=== PATIENT | male | born 1960 | race African-American/Black ===

== ENCOUNTER 2016-06-02 10:13 | Emergency (ER) | payer SELFPAY ==
[~2016-06-02] VITALS: Ht 175.3 cm; Wt 90.0 kg
[~2016-06-02 10:13] MED LIST: AUGM875T PO; DICL50 PO; TAB-TAB PO
[2016-06-02 10:14] VITALS: BP 127/88; PULSE 91; RESP 20; TEMP 98.3; O2SAT 94
--- NOTE | 2016-06-02 10:46 | PD ---
HPI Chief Complaint: Cold / Flu Symptoms Time Seen by Provider: 10:46 Travel History International Travel<30 days: No Contact w/Intl Traveler<30days: No Traveled to known affect area: No History of Present Illness HPI 55-year-old male presents emergency Department with complaint of cough, nasal congestion, sore throat 3 days. Also is complaining of headache, body aches, chest tightness. Has not taken his temperature and cannot reported MAXIMUM TEMPERATURE. Reports sweating and cold chills. Reports burning sensation in the back of his throat. Denies lump in throat, unusual drooling, difficulty swallowing. Reports painful swallowing. Denies abdominal pain, nausea, vomiting. Denies chest pain or shortness of breath. Reports tobacco use. Denies history of asthma or COPD. Has not taken any medications or tried any treatments to alleviate his symptoms. No known relieving or aggravating factors. No known allergies. Does not have an established primary care doctor. Denies significant past medical history. No other modifying factors or associated signs and symptoms. PFS Social History Alcohol Use: Yes Tobacco Use: Yes Allergies-Medications (Allergen,Severity, Reaction): Coded Allergies: No Known Allergies (Unverified , 06/02/16) Reported Meds & Prescriptions Reported Meds & Active Scripts Active Nasonex Nasal Cobb (Mometasone Furoate) 50 Mcg/Act Naspr 2 Cobb EACH NARE DAILY PRN Tessalon Perles (Benzonatate) 100 Mg Cap 100 Mg PO TID PRN Proair Hfa 8.5 GM Inh (Albuterol Sulfate) 90 Mcg/Act Aer 2 Puff INH Q4-6H PRN 108 mcg/actuation Ibuprofen 800 Mg Tab 800 Mg PO Q6HR PRN Deltasone (Prednisone) 20 Mg Tab 40 Mg PO DAILY 4 Days start 06/03/2016 Review of Systems Except as stated in HPI: all other systems reviewed are Neg Physical Exam Narrative GENERAL: Well-nourished, well-developed male patient, in no acute distress; afebrile, nontoxic-appearing SKIN: Warm and dry. No rash. HEAD: Atraumatic. Normocephalic. EYES: Pupils equal and round at 3 mm with brisk reaction. No scleral icterus. No injection or drainage. PERRLA. ENT: Mucosa pink and dry. Oropharynx with erythema; without exudate and edema. Uvular edema. No uvular, palatal, or tonsillar deviation. Airway patent. Voice is hoarse. Productive cough. EARS: Bilateral pinnae and external canals appear within normal limits. Bilateral tympanic membranes without erythema, dullness or perforation. NECK: Trachea midline. With Anterior cervical lymphadenopathy and tenderness. CARDIOVASCULAR: Regular rate and rhythm. No murmur appreciated. RESPIRATORY: No accessory muscle use. Clear to auscultation; decreased in bilateral bases. Breath sounds equal bilaterally. No retractions or tachypnea. GASTROINTESTINAL: Abdomen soft, non-tender, nondistended. Hepatic and splenic margins not palpable. Bowel sounds are active 4 quadrants. MUSCULOSKELETAL: No obvious deformities. No clubbing. No cyanosis. No edema. NEUROLOGICAL: Awake and alert. Oriented 3. No obvious cranial nerve deficits. Motor grossly within normal limits. Normal speech. Moves all extremities. PSYCHIATRIC: Appropriate mood and affect; insight and judgment normal. Data Data Last Documented VS Vital Signs Date Time Temp Pulse Resp B/P Pulse Ox O2 Delivery O2 Flow Rate FiO2 06/02/16 10:14 98.3 91 20 127/88 94 Room Air Orders Chest, Single Ap (06/02/16 10:46) Prednisone (Deltasone) (06/02/16 11:00) Albuterol Neb (Albuterol Neb) (06/02/16 11:00) Influenzae A/B Antigen (06/02/16 10:46) Group A Rapid Strep Screen (06/02/16 10:46) Ibuprofen (Motrin) (06/02/16 11:00) Strep Culture (Group A) (06/02/16 10:55) [facility] Medical Decision Making Medical Screen Exam Complete: Yes Emergency Medical Condition: Yes Medical Record Reviewed: Yes Differential Diagnosis Bronchitis, Influenza, pneumonia, viral illness, COPD, strep pharyngitis Narrative Course 55-year-old male with cold/flu symptoms 3 days. Patient is afebrile nontoxic appearing in the ER. Reports sweats and cold chills at home. Unable to reports MAXIMUM TEMPERATURE. Patient is in no acute distress. Oxygen saturation is 94% on room air. Lungs are clear and equal and decreased in bilateral bases. No retractions or tachypnea. Influenza, rapid strep, chest x- ray ordered. Ibuprofen, Albuterol nebulizer and Deltasone administered in the ER. 1136: Influenza and rapid strep negative. Patient in room eating chips. Chest x-ray with no acute findings. Patient reports improvement in symptoms. Denies chest tightness at this time. Lung sounds are clear and equal with improved air flow on reexamination. Patient requesting 1 more albuterol nebulizer treatment prior to discharge. Albuterol nebulizer ordered. Prescriptions for pro-air inhaler, Deltasone, Tessalon Perles, Magic mouthwash, Nasonex nasal spray prescribed for home. Patient says he doesn't want to take any medications fro his illness. I recommended the patient fill the prescriptions and take the medications. Patient verbalized understanding and agreement with treatment plan. Patient is medically cleared and stable for discharge. Discussed reasons to return to the emergency department. Instructed patient to follow up with primary care provider. Patient agrees with treatment plan. The patients vital signs are stable and the patient is stable for outpatient follow-up and treatment. Patient discharged home, stable and in no acute distress. Diagnosis Primary Impression: Acute bronchitis Qualified Code: J20.9 - Acute bronchitis, unspecified organism Referrals: Primary Care Physician Patient Instructions: Acute Bronchitis (ED), General Instructions Additional Instructions: Ibuprofen or Tylenol as directed and as needed to reduce fever/pain Umac-ctc-bqbavii antihistamines or decongestants as directed and as needed for symptom management Drink plenty of fluids to prevent dehydration Bracken diet to encourage nutrition such as crackers, fruit, applesauce, toast, soup etc. Use an air humidifier/turn off ceiling fans Follow-up with your primary care provider within 1 day Return immediately to the emergency department with worsening of symptoms Med/Other Pt SpecificInfo: Prescription(s) given Scripts Wuhnghbcbrysgdt-Qwihpborw-Glg-Alum-Simeth Liq (Magic Mouthwash Pediatric/Adult Liq)60 Ml Susp5 Ml SWISH-SWAL ACHS PRN (SORE THROAT) #60 ML Ref 0 Each 5mL contains: Diphenydramine 4.5mg, Viscous Lidocaine 2% 10mg, Maalox Advanced Regular Strength 2.7ml Prov:Diamond Rowe 06/02/16 Mometasone Nasal Cobb (Nasonex Nasal Cobb)50 Mcg/Act Naspr2 Cobb EACH NARE DAILY PRN (NASAL CONGESTION) #1 BOTTLE Ref 0 Prov:Diamond Rwoe 06/02/16 Benzonatate (Tessalon Perles)100 Mg Sbc520 Mg PO TID PRN (COUGH) #20 CAP Ref 0 Prov:Diamond RoweP 06/02/16 Albuterol 8.5 GM Inh (Proair Hfa 8.5 GM Inh)90 Mcg/Act Aer2 Puff INH Q4-6H PRN ( SOB/WHEEZING) #1 INHALER Ref 0 108 mcg/actuation Prov:Diamond Rowe 06/02/16 Ibuprofen 800 Mg Jkr625 Mg PO Q6HR PRN (PAIN) #30 TAB Ref 0 Prov:Diamond RoweP 06/02/16 Prednisone (Deltasone)20 Mg Tab40 Mg PO DAILY 4 Days Ref 0 start 06/03/2016 Prov:Diamond RoweP 06/02/16 Disposition: 01 DISCHARGE HOME Condition: Stable Diamond Rowe Jun 02, 2016 10:46
[2016-06-02] MEDS ORDERED: RESP: ALBUTEROL 2.5 MG/3 ML NEB (SCH) INH ONE ×2 (11:00→11:45)
[2016-06-02] MEDS ORDERED: IBUPROFEN 800 MG TAB PO ONE (11:00)
[2016-06-02] MEDS ORDERED: predniSONE 20 MG TAB PO ONE (11:00)
--- NOTE | 2016-06-02 11:37 | RADRPT ---
EXAM DATE/TIME: 06/02/2016 10:48 [facility] COMPARISON: No previous studies available for comparison. INDICATIONS : Patient has had chest pain for four days. Patient is a smoker. MEDICAL HISTORY : None. SURGICAL HISTORY : None. ENCOUNTER: Initial ACUITY: 4 - 6 days PAIN SCORE: 8/10 LOCATION: chest FINDINGS: A single view of the chest demonstrates the lungs to be symmetrically aerated without evidence of mas s, infiltrate or effusion. The cardiomediastinal contours are unremarkable. Osseous structures are intact. CONCLUSION: No acute disease. Gerald Estrada MD FACR on June 02, 2016 at 11:35 Board Certified Radiologist. This report was verified electronically.
[2016-06-02] MEDS ORDERED: ALBUAER3 INH (11:44)
[2016-06-02] MEDS ORDERED: BENZ100 PO (11:44)
[2016-06-02] MEDS ORDERED: PRED-503 PO (11:44)
[2016-06-02] MEDS ORDERED: MOME17I EACH NARE (11:44)
[2016-06-02] MEDS ORDERED: IBUP800T23 PO (11:44)
[2016-06-02] MEDS ORDERED: MAGICPED SWISH-SWAL (11:47)
[2016-06-02 12:03] VITALS: RESP 18; O2SAT 96
[2016-06-02 12:48] VITALS: RESP 20
== END 2016-06-02 12:47 | disposition home or self-care (01) ==
LOC: NEPB 10:13
DX: J20.9 Acute bronchitis, unspecified (principal); R51 Headache; M79.1 Myalgia; J02.9 Acute pharyngitis, unspecified; Z72.0 Tobacco use
CPT/HCPCS: 71010; 87081; 87804; 87880; 94640; 94664; 99283; J7512; J7613

== ENCOUNTER 2016-06-29 19:19 | Observation (INO) | payer OTHER ==
[~2016-06-29] VITALS: Ht 180.3 cm; Wt 82.0 kg
[~2016-06-29 19:19] MED LIST changes: +ALBUAER3 INH; -AUGM875T PO; +BENZ100 PO; -DICL50 PO; +IBUP800T23 PO; +MAGICPED SWISH-SWAL; +MOME17I EACH NARE; +PRED-503 PO; -TAB-TAB PO
[2016-06-29 19:22] VITALS: BP 123/87; PULSE 101; RESP 16; O2SAT 95
--- NOTE | 2016-06-29 19:47 | RADRPT ---
EXAM DATE/TIME: 06/29/2016 19:33 [facility] COMPARISON: CHEST SINGLE AP, June 02, 2016, 10:48. INDICATIONS : Chest pain. MEDICAL HISTORY : None. SURGICAL HISTORY : None. ENCOUNTER: Initial ACUITY: 1 day PAIN SCORE: 0/10 LOCATION: Bilateral chest FINDINGS: A single view of the chest demonstrates the lungs to be symmetrically aerated without evidence of mas s, infiltrate or effusion. The cardiomediastinal contours are unremarkable. Osseous structures are intact. CONCLUSION: No acute disease. Callum Street MD on June 29, 2016 at 19:45 Board Certified Radiologist. This report was verified electronically.
[2016-06-29 20:03] LABS: AUTOMATED NEUTROPHIL # 2.1 TH/MM3 (1.8-7.7); HEMATOCRIT 44.8 % (39.0-51.0); HEMO FLAGS DIFF FINAL; LYMPH % 41.7 % (9.0-44.0); LYMPHOCYTE # 1.9 TH/MM3 (1.0-4.8); MEAN CELL VOLUME 85.4 FL (80.0-100.0); MEAN CORPUSCULAR HEMOGLOBIN 29.1 PG (27.0-34.0); MEAN CORPUSCULAR HGB CONC 34.1 % (32.0-36.0); MONO % 9.1 % (0.0-8.0); NEUT % 47.2 % (16.0-70.0); PLATELET COUNT 217 TH/MM3 (150-450); RED BLOOD COUNT 5.25 MIL/MM3 (4.50-5.90); RED CELL DISTRIBUTION WIDTH 15.1 % (11.6-17.2); WHITE BLOOD COUNT 4.5 TH/MM3 (4.0-11.0)
[2016-06-29 20:10] LABS: INTERNATIONAL NORMALIZED RATIO 0.9 RATIO; PROTHROMBIN TIME - PATIENT 9.7 SEC (9.8-11.6)
[2016-06-29 20:31] LABS: ANION GAP 12 MEQ/L (5-15); BICARBONATE 24.3 MEQ/L (21.0-32.0); BLOOD UREA NITROGEN 7 MG/DL (7-18); CHLORIDE 105 MEQ/L (98-107); CREATINE KINASE 649 U/L (39-308); GLOMERULAR FILTRATION RATE 71 ML/MIN (>89); POTASSIUM 3.9 MEQ/L (3.5-5.1); SODIUM (NA) 141 MEQ/L (136-145)
[2016-06-29 20:43] LABS: CKMB 16.1 NG/ML (0.5-3.6)
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
[2016-06-29] MEDS ORDERED: NITROGLYCERIN 2% OINT 1 GM PACKET TOPICAL ONE (21:30)
[2016-06-29] MEDS ORDERED: ASPIRIN 81 MG CHEW TAB CHEW ONE (21:30)
[2016-06-29 22:00] VITALS: BP 131/80; PULSE 89; RESP 16; O2SAT 99
--- NOTE | 2016-06-29 22:22 | EKG ---
Date Performed: 06/29/2016 Time Performed: 19:28:03 PTAGE: 55 years EKG: SINUS TACHYCARDIA ABNORMAL RHYTHM ECG NO PREVIOUS TRACING DOCTOR: Mirna Yeager Interpretating Date/Time 06/29/2016 22:19:24
[2016-06-29] MEDS ORDERED: ONDANSETRON HCL 4 MG/2 ML VIAL IV PRN (23:00)
[2016-06-29] MEDS ORDERED: SODIUM CHLORIDE 0.9% FLUSH 10 ML FLUSH IV FLUSH PRN (23:00)
[2016-06-29] MEDS ORDERED: ACETAMINOPHEN 500 MG CPLT PO PRN (23:00)
[2016-06-29] MEDS ORDERED: NITROGLYCERIN 0.4 MG SL 25 TABS/BTL SL PRN (23:00)
[2016-06-29] MEDS ORDERED: ACETAMINOPHEN/HYDROcodone 325 MG/7.5 MG TAB PO PRN (23:00)
[2016-06-29 23:02] VITALS: O2SAT 99
[2016-06-29 23:33] LABS: CREATINE KINASE 626 U/L (39-308)
[2016-06-29 23:45] LABS: CKMB 14.4 NG/ML (0.5-3.6)
[2016-06-30 01:21] VITALS: BP 131/83; PULSE 100; RESP 18; TEMP 97.7; O2SAT 95
[2016-06-30] MEDS: MORPHINE SULFATE 4 MG/ML INJ IV PRN ×2 (01:48→06:11)
[2016-06-30 02:20] VITALS: PULSE 95
[2016-06-30 02:41] LABS: CREATINE KINASE 536 U/L (39-308)
[2016-06-30 02:53] LABS: CKMB 12.9 NG/ML (0.5-3.6)
[2016-06-30 04:59] VITALS: BP 114/76; PULSE 99; RESP 20; O2SAT 95
[2016-06-30 07:23] VITALS: BP 134/94; PULSE 99; RESP 18; TEMP 97.3; O2SAT 92
[2016-06-30] MEDS ORDERED: KETOROLAC TROMETHAMINE 30 MG/ML (IVP) VIAL IVP ONE (08:30)
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
[2016-06-30] MEDS ORDERED: DOXY100C PO (08:31)
--- NOTE | 2016-06-30 08:31 | HHI.DCPOC ---
Discharge Care Plan Diagnosis: (1) Chest pain, atypical (2) Tobacco abuse (3) Bronchitis Goals to Promote Your Health * To prevent worsening of your condition and complications * To maintain your health at the optimal level Directions to Meet Your Goals Take your medications as prescribed Follow your dietary instruction Follow activity as directed Keep your appointments as scheduled Take your immunizations and boosters as scheduled If your symptoms worsen call your PCP, if no PCP go to Urgent Care Center or Emergency Room Smoking is Dangerous to Your Health. Avoid second hand smoke Call the 24-hour hour crisis hotline for domestic abuse at Brian Robles Jun 30, 2016 08:31
[2016-06-30] MEDS ORDERED: ASPIRIN 325 MG TAB PO SCH (09:00)
[2016-06-30] MEDS ORDERED: SODIUM CHLORIDE 0.9% FLUSH 10 ML FLUSH IV FLUSH SCH (09:00)
[2016-06-30] MEDS ORDERED: FAMOTIDINE 20 MG TAB PO SCH (09:00)
--- NOTE | 2016-06-30 13:36 | EKG ---
Date Performed: 06/30/2016 Time Performed: 02:19:31 PTAGE: 55 years EKG: NORMAL Sinus rhythm PREVIOUS TRACING : 06/29/2016 23.05 Since previous tracing, no significant change noted DOCTOR: Sebas Maldonado Interpretating Date/Time 06/30/2016 13:34:45
--- NOTE | 2016-06-30 13:37 | EKG ---
Date Performed: 06/29/2016 Time Performed: 23:05:23 PTAGE: 55 years EKG: Sinus rhythm NORMAL ECG PREVIOUS TRACING : 06/29/2016 19.28 Since previous tracing, no significant change noted DOCTOR: Sebas Maldonado Interpretating Date/Time 06/30/2016 13:36:47
== END 2016-06-30 10:12 | disposition home or self-care (01) ==
LOC: NEPB 19:19 → NEDA 22:55 → NEPGCP 06-30 01:16
PROVIDERS: ADMIT Internal Medicine Interventional Cardiology; ATTEND Internal Medicine Interventional Cardiology
DX: J40 Bronchitis, not specified as acute or chronic (principal); R07.9 Chest pain, unspecified; R06.02 Shortness of breath; R61 Generalized hyperhidrosis; F17.210 Nicotine dependence, cigarettes, uncomplicated; R06.09 Other forms of dyspnea; R07.81 Pleurodynia; R10.816 Epigastric abdominal tenderness; R00.0 Tachycardia, unspecified; R05 Cough; R94.31 Abnormal electrocardiogram [ECG] [EKG]
CPT/HCPCS: 71010; 80048; 82550; 82552; 83690; 84484; 85025; 85379; 85610; 85730; 93005; 99285; G0378; J1885; J2270

== ENCOUNTER 2016-12-16 07:30 | Observation (INO) | payer OTHER ==
[~2016-12-16] VITALS: Ht 172.7 cm; Wt 80.0 kg
[2016-12-16] VITALS (7 sets, daily range): BP systolic 115–139; BP diastolic 78–95; PULSE 80–102; RESP 13–18; TEMP 97.8–98.8; O2SAT 92–97
[~2016-12-16 07:30] MED LIST changes: -ALBUAER3 INH; -BENZ100 PO; +DOXY100C PO; -IBUP800T23 PO; -MAGICPED SWISH-SWAL; -MOME17I EACH NARE; -PRED-503 PO
[2016-12-16] MEDS ORDERED: TRAM50TA PO (07:48)
[2016-12-16] MEDS ORDERED: TIZA4TAB PO (07:48)
[2016-12-16] MEDS ORDERED: SODIUM CHLOR 0.9% 1000 ML INJ 1,000 ML IV SCH (07:49)
--- NOTE | 2016-12-16 07:52 | PD ---
HPI Chief Complaint: Chest Pain Time Seen by Provider: 07:48 Travel History International Travel<30 days: No Contact w/Intl Traveler<30days: No Traveled to known affect area: No History of Present Illness HPI 56-year-old male with history of alcohol use, smoking, chronic back pains, presents to the ER today for 2 days history of substernal chest pains which she currently rates it a 10 out of 10. He denies any fevers, vomiting, diarrhea, shortness of breath, or any other symptoms. He does not know any exacerbating or alleviating factors. He denies any radiation. Modifying Factors: None Associated Signs & Symptoms: Substernal chest pains Risk Factors: None PFSH Past Medical History Heart Rhythm Problems: No Cardiac Catheterization: No Cardiovascular Problems: No High Cholesterol: Yes Congestive Heart Failure: No Diabetes: No Diminished Hearing: No Musculoskeletal: Yes (BACK PAIN HX) Immunizations Current: Yes Tetanus Vaccination: < 5 Years Influenza Vaccination: No Past Surgical History Coronary Artery Bypass Graft: No Family History Family Myocardial Infarction: Yes Social History Alcohol Use: Yes (EVERY DAY) Tobacco Use: Yes Substance Use: No (PT DENIES) Allergies-Medications (Allergen,Severity, Reaction): Coded Allergies: No Known Allergies (Unverified , 12/16/16) Reported Meds & Prescriptions Reported Meds & Active Scripts Active Reported Tramadol (Tramadol HCl) 50 Mg Tab 50 Mg PO Q8H PRN Tizanidine (Tizanidine HCl) 4 Mg Tab 4 Mg PO HS Review of Systems Except as stated in HPI: all other systems reviewed are Neg Physical Exam Narrative GENERAL: Well-developed middle age -Bhut[place] male patient currently in no acute distress. Awake and oriented 3. SKIN: Focused skin assessment warm/dry. HEAD: Atraumatic. Normocephalic. EYES: Pupils equal and round. No scleral icterus. No injection or drainage. ENT: No nasal bleeding or discharge. Mucous membranes pink and moist. NECK: Trachea midline. No JVD. CARDIOVASCULAR: Regular rate and rhythm. No murmur appreciated. Pulses are present and equal bilaterally. RESPIRATORY: No accessory muscle use. Clear to auscultation. Breath sounds equal bilaterally. GASTROINTESTINAL: Abdomen soft, moderate epigastric and left upper quadrant tenderness without guarding or rebound, nondistended. Hepatic and splenic margins not palpable. MUSCULOSKELETAL: No obvious deformities. No clubbing. No cyanosis. No edema. NEUROLOGICAL: Awake and alert. No obvious cranial nerve deficits. Motor grossly within normal limits. Normal speech. PSYCHIATRIC: Appropriate mood and affect; insight and judgment normal. Data Data Last Documented VS Vital Signs Date Time Temp Pulse Resp B/P (MAP) Pulse Ox O2 Delivery O2 Flow Rate FiO2 12/16/16 08:44 97.8 92 17 131/86 (101) 97 Room Air Orders Orders Electrocardiogram (12/16/16 ) Complete Blood Count With Diff (12/16/16 07:49) Comprehensive Metabolic Panel (12/16/16 07:49) Lipase (12/16/16 07:49) Iv Access Insert/Monitor (12/16/16 07:49) Ecg Monitoring (12/16/16 07:49) Oximetry (12/16/16 07:49) Ondansetron Inj (Zofran Inj) (12/16/16 08:00) Sodium Chlor 0.9% 1000 Ml Inj (Ns 1000 M (12/16/16 07:49) Sodium Chloride 0.9% Flush (Ns Flush) (12/16/16 08:00) Chest, Single Ap (12/16/16 07:49) Famotidine Inj (Pepcid Inj) (12/16/16 08:00) Ckmb (Isoenzyme) Profile (12/16/16 07:49) Troponin I (12/16/16 07:49) CKMB (12/16/16 07:56) CKMB% (12/16/16 07:56) Admit Order (Ed Use Only) (12/16/16 08:58) Labs Laboratory Tests Test 12/16/16 07:56 White Blood Count 3.4 TH/MM3 Red Blood Count 5.14 MIL/MM3 Hemoglobin 14.5 GM/DL Hematocrit 43.9 % Mean Corpuscular Volume 85.4 FL Mean Corpuscular Hemoglobin 28.3 PG Mean Corpuscular Hemoglobin Concent 33.1 % Red Cell Distribution Width 15.6 % Platelet Count 171 TH/MM3 Mean Platelet Volume 8.3 FL Neutrophils (%) (Auto) 49.8 % Lymphocytes (%) (Auto) 39.7 % Monocytes (%) (Auto) 10.0 % Eosinophils (%) (Auto) 0.1 % Basophils (%) (Auto) 0.4 % Neutrophils # (Auto) 1.7 TH/MM3 Lymphocytes # (Auto) 1.4 TH/MM3 Monocytes # (Auto) 0.3 TH/MM3 Eosinophils # (Auto) 0.0 TH/MM3 Basophils # (Auto) 0.0 TH/MM3 CBC Comment DIFF FINAL Differential Comment Blood Urea Nitrogen 14 MG/DL Creatinine 1.02 MG/DL Random Glucose 125 MG/DL Total Protein 8.2 GM/DL Albumin 3.9 GM/DL Calcium Level 7.7 MG/DL Alkaline Phosphatase 106 U/L Aspartate Amino Transf (AST/SGOT) 40 U/L Alanine Aminotransferase (ALT/SGPT) 41 U/L Total Bilirubin 0.4 MG/DL Sodium Level 140 MEQ/L Potassium Level 4.5 MEQ/L Chloride Level 107 MEQ/L Carbon Dioxide Level 24.7 MEQ/L Anion Gap 8 MEQ/L Estimat Glomerular Filtration Rate 92 ML/MIN Total Creatine Kinase 789 U/L Creatine Kinase MB 12.6 NG/ML Creatine Kinase MB % 1.6 % Troponin I LESS THAN 0.02 NG/ML Lipase 355 U/L MDM Medical Decision Making Medical Screen Exam Complete: Yes Emergency Medical Condition: Yes Medical Record Reviewed: Yes Interpretation(s) EKG shows NSR, no ST elevation or depression, and no arrhythmias. No significant T-wave inversions. Laboratory Tests Test 12/16/16 07:56 White Blood Count 3.4 TH/MM3 (4.0-11.0) Monocytes (%) (Auto) 10.0 % (0.0-8.0) Neutrophils # (Auto) 1.7 TH/MM3 (1.8-7.7) Random Glucose 125 MG/DL (74-106) Calcium Level 7.7 MG/DL (8.5-10.1) Aspartate Amino Transf (AST/SGOT) 40 U/L (15-37) Total Creatine Kinase 789 U/L (39-308) Creatine Kinase MB 12.6 NG/ML (0.5-3.6) Troponin I LESS THAN 0.02 NG/ML Last 24 hours Impressions Chest X-Ray 12/16/16 0749 Signed Impressions: Service Date/Time: December 07:52 - CONCLUSION: 1. No free intraperitoneal air. 2. No acute cardiopulmonary disease. Callum Street MD Differential Diagnosis Substernal chest pains, abdominal pains: Gastritis versus gastroenteritis versus pancreatitis versus ACS Narrative Course Chest x-ray was unremarkable. EKG not show any signs of acute dysrhythmias or ST changes. Cardiac enzymes were negative, there is a CK-MB elevation due to elevated CPK in general but the percentage was normal. At this point, considering patient's complaint, my plan would be to admit the patient for further evaluation and chest pain center. Diagnosis Primary Impression: Chest pain Admitting Information Admitting Physician Requests: Admit Marilynn Gusman MD Dec 16, 2016 07:52
[2016-12-16] MEDS ORDERED: FAMOTIDINE 20 MG/2 ML VIAL IV PUSH ONE (08:00)
[2016-12-16] MEDS ORDERED: ONDANSETRON HCL 4 MG/2 ML VIAL IVP ONE (08:00)
[2016-12-16] MEDS ORDERED: SODIUM CHLORIDE 0.9% FLUSH 10 ML FLUSH IV FLUSH PRN (08:00)
[2016-12-16 08:13] LABS: AUTOMATED NEUTROPHIL # 1.7 TH/MM3 (1.8-7.7); BASOPHIL % 0.4 % (0.0-2.0); EOSINOPHIL % 0.1 % (0.0-4.0); HEMATOCRIT 43.9 % (39.0-51.0); HEMO FLAGS DIFF FINAL; LYMPH % 39.7 % (9.0-44.0); LYMPHOCYTE # 1.4 TH/MM3 (1.0-4.8); MEAN CELL VOLUME 85.4 FL (80.0-100.0); MEAN CORPUSCULAR HEMOGLOBIN 28.3 PG (27.0-34.0); MEAN CORPUSCULAR HGB CONC 33.1 % (32.0-36.0); NEUT % 49.8 % (16.0-70.0); PLATELET COUNT 171 TH/MM3 (150-450); RED BLOOD COUNT 5.14 MIL/MM3 (4.50-5.90); RED CELL DISTRIBUTION WIDTH 15.6 % (11.6-17.2); WHITE BLOOD COUNT 3.4 TH/MM3 (4.0-11.0)
--- NOTE | 2016-12-16 08:16 | RADRPT ---
EXAM DATE/TIME: 12/16/2016 07:52 [facility] COMPARISON: CHEST SINGLE AP, June 29, 2016, 19:33. INDICATIONS : Free air, Shortness of breath. MEDICAL HISTORY : None. SURGICAL HISTORY : None. ENCOUNTER: Initial ACUITY: 1 day PAIN SCORE: 5/10 LOCATION: Bilateral chest FINDINGS: A single view of the chest demonstrates the lungs to be symmetrically aerated without evidence of mas s, infiltrate or effusion. The cardiomediastinal contours are unremarkable. Osseous structures are intact. No free intraperitoneal air is noted. CONCLUSION: 1. No free intraperitoneal air. 2. No acute cardiopulmonary disease. Callum Street MD on December 16, 2016 at 8:13 Board Certified Radiologist. This report was verified electronically.
[2016-12-16 08:35] LABS: ALT (GPT) 41 U/L (12-78); ANION GAP 8 MEQ/L (5-15); AST (GOT) 40 U/L (15-37); BICARBONATE 24.7 MEQ/L (21.0-32.0); BLOOD UREA NITROGEN 14 MG/DL (7-18); CHLORIDE 107 MEQ/L (98-107); GLOMERULAR FILTRATION RATE 92 ML/MIN (>89); POTASSIUM 4.5 MEQ/L (3.5-5.1); SODIUM (NA) 140 MEQ/L (136-145)
[2016-12-16 08:39] LABS: ALKALINE PHOSPHATASE 106 U/L (45-117); CREATINE KINASE 789 U/L (39-308); TOTAL BILIRUBIN ADULT 0.4 MG/DL (0.2-1.0)
[2016-12-16 08:52] LABS: CKMB 12.6 NG/ML (0.5-3.6)
[2016-12-16] MEDS ORDERED: SODIUM CHLORIDE 0.9% FLUSH 5 ML FLUSH IVF PRN (09:30)
[2016-12-16] MEDS ORDERED: KETOROLAC TROMETHAMINE 30 MG/ML (IVP) VIAL IVP ONE (09:30)
[2016-12-16] MEDS ORDERED: ONDANSETRON HCL 4 MG/2 ML VIAL IV PRN (09:30)
[2016-12-16] MEDS ORDERED: ACETAMINOPHEN/HYDROcodone 325 MG/7.5 MG TAB PO PRN (09:30)
[2016-12-16] MEDS ORDERED: ALPRAZolam 0.25 MG TAB PO PRN (09:30)
[2016-12-16] MEDS ORDERED: ACETAMINOPHEN 500 MG CPLT PO PRN (09:30)
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
[2016-12-16 11:47] LABS: CREATINE KINASE 669 U/L (39-308)
--- NOTE | 2016-12-16 14:07 | HHI.DCPOC ---
Discharge Care Plan Diagnosis: (1) Chest pain, atypical (2) Tobacco abuse (3) Chronic back pain Goals to Promote Your Health * To prevent worsening of your condition and complications * To maintain your health at the optimal level Directions to Meet Your Goals Take your medications as prescribed Follow your dietary instruction Follow activity as directed Keep your appointments as scheduled Take your immunizations and boosters as scheduled If your symptoms worsen call your PCP, if no PCP go to Urgent Care Center or Emergency Room Smoking is Dangerous to Your Health. Avoid second hand smoke Call the 24-hour hour crisis hotline for domestic abuse at Brian Robles Dec 16, 2016 14:07
--- NOTE | 2016-12-16 16:05 | TR ---
Date Performed: 12/16/2016 Time Performed: 13:41:11 DOCTOR: Aneudy Pinto DRUG LIST: CLINICAL HISTORY: REASON FOR TEST: Chest pain REASON FOR ENDING: OBSERVATION: CONCLUSION: JACOB PROTOCOL. NO CP. TEST STOPPED AFTER EXCEEDING GOAL HR SECONDARY TO SOB AND LEG FATIGUE.Maximum SJ=234 % Max HR Achieved=87.0% Maximum ID=[id number] Total Exercise Time=3:32 COMMENTS: Conclusion: Normal treadmill exercise. No evidence of ischemia.
--- NOTE | 2016-12-16 16:07 | EKG ---
Date Performed: 12/16/2016 Time Performed: 07:47:33 PTAGE: 56 years EKG: Sinus rhythm NORMAL ECG PREVIOUS TRACING : 06/30/2016 02.19 Since previous tracing, no significant change noted DOCTOR: Aneudy Pinto Interpretating Date/Time 12/16/2016 16:06:33
--- NOTE | 2016-12-16 16:19 | EKG ---
Date Performed: 12/16/2016 Time Performed: 10:54:26 PTAGE: 56 years EKG: Sinus rhythm WITH SINUS ARRHYTHMIA NORMAL ECG INTERPRETATION BASED ON A DEFAULT AGE OF 40 YEARS PREVIOUS TRACING : 12/16/2016 07.47 DOCTOR: Aneudy Pinto Interpretating Date/Time 12/16/2016 16:18:07
[2016-12-16] MEDS ORDERED: SODIUM CHLORIDE 0.9% FLUSH 5 ML FLUSH IVF SCH (21:00)
[2016-12-17] MEDS ORDERED: ASPIRIN 325 MG TAB PO SCH (09:00)
== END 2016-12-16 16:30 | disposition home or self-care (01) ==
LOC: NEPE 07:30 → NEDA 09:00 → NEPFCDU 13:21
DX: R07.89 Other chest pain (principal); M54.9 Dorsalgia, unspecified; G89.29 Other chronic pain; F17.210 Nicotine dependence, cigarettes, uncomplicated
CPT/HCPCS: 71010; 80053; 82550; 82552; 83690; 84484; 85025; 93005; 93017; 96361; 96374; 96375; 96376; 99285; G0378; J1885; J2405; J7030

== ENCOUNTER → 2017-01-25 | Day surgery (SDC) | payer OTHER ==
[~2017-01-25] VITALS: Ht 175.3 cm; Wt 81.9 kg
[~2017-01-25] MED LIST changes: +*morphine SULFATE 8 MG/ML PERIprocedure ONLY ONE; +ACETAMINOPHEN 1000 MG/100 ML 0 ML IV ONE; +ACETAMINOPHEN 1000 MG/100 ML 100 ML IV SCH; +BUPIVACAINE LIPOSOME PF 1.3% 20 ML VIAL ONE; +BUPIVACAINE/EPINEPHRINE 0.5% 50 ML VIAL ONE; +CHLORHEXIDINE GLUCONATE 2 % 1 PACK (2 CLOTHS) TOPICAL PRN; +DEXAMETHASONE SOD PHOS 4 MG/ML VIAL IV ONE; +DO NOT ADM ANY ANTICOAGULANT DRUGS PRN; -DOXY100C PO; +ESMOLOL HCL 100 MG/10 ML VIAL IV ONE; +GLYCOPYRROLATE 1 MG/5 ML SYRINGE IV PUSH ONE; +INSULIN HUMAN REGULAR 1,000 UNITS/10 ML VIAL SQ PRN; +KETOROLAC TROMETHAMINE 30 MG/ML (IVP) VIAL IV PUSH ONE; +LACTATED RINGER'S 1000 ML INJ 1,000 ML IV ONE; +LACTATED RINGER'S 1000 ML IV PRN; +LIDOCAINE HCL 1% PF 5 ML AMPULE OTHER ONE; +METOPROLOL TARTRATE 25 MG TAB PO PRN; +MIDAZOLAM HCL 2 MG/2 ML VIAL IV ONE; +MORPHINE SULFATE 4 MG/ML INJ IV PUSH PRN; +NEOSTIGMINE 3 MG/3 ML SYR IV ONE; +ONDANSETRON HCL 4 MG/2 ML VIAL IV PUSH ONE; +ONDANSETRON HCL 4 MG/2 ML VIAL IV PUSH PRN; +POVIDONE IODINE 5% (ANTISEPSIS KIT) 4 APPLICATIONS EACH NARE PRN; +PROPOFOL 200 MG/20 ML AMP IV ONE; +ROCURONIUM INJ 50 MG/5 ML SYRINGE IV PUSH ONE; +SODIUM CHLORID 0.9% 500 ML IV PRN; +SODIUM CHLORIDE 0.9% 20 ML VIAL IV ONE; +TIZA4TAB PO; +TRAM50TA PO; +ceFAZolin 2 GM PREMIX 50 ML IV SCH; +oxyCODONE/ACETAMINOPHEN 5 MG/325 MG TAB PO PRN
[2017-01-25 15:27] VITALS: BP 136/89; PULSE 84; RESP 16; O2SAT 95
--- NOTE | 2017-01-25 22:06 | MP ---
cc: GALLITO LOYA DATE OF SURGERY 01/25/2017 PREOPERATIVE DIAGNOSIS 1. Umbilical hernia 2. Right inguinal hernia. POSTOPERATIVE DIAGNOSES 1. Umbilical hernia 2. Right inguinal hernia. PROCEDURE 1. Laparoscopic repair of umbilical hernia with Ventralite ST mesh and echo deployment system. 2. Open repair of right inguinal hernia with ProGrip mesh. SURGEON Jennifer Loya MD MANAGER MINING Kirstie Harper, MS III ANESTHESIA General endotracheal OPERATIVE FINDINGS The patient was found to have a less than 2 cm umbilical hernia with a small amount of inspissated fat within it. The right inguinal hernia was large involving most of the inguinal floor. There was no indirect component. No other abnormalities were noted. OPERATIVE PROCEDURE The patient was brought to the operating room and, after satisfactory general anesthesia been obtained, the patient underwent placement of a Tap block with Exparel. The abdomen was then prepped and draped in the usual sterile fashion and covered with an Ioban drape. 0.5% Marcaine with epinephrine was used to infiltrate the skin for local anesthesia. An incision was made in the left subcostal area, carried down bluntly through the subcutaneous tissue through the anterior fascia and the muscle. The peritoneal cavity was then entered bluntly with care being came taken not injure the underlying viscera. A 12 mm GelPort was placed within the peritoneal cavity without problem and the balloon engaged. The abdomen was then insufflated to 15 mmHg using carbon dioxide. The camera was reinserted and visceral injury inspected for with none being identified. Under direct visualization, two other five ports were placed on the left at the left side of the abdomen. The umbilical hernia was identified and the fat around it was dissected free from the peritoneal surface using the harmonic scalpel. As much of the fat as possible was retrieved from the umbilical hernia itself. After clearing as much of the fat as possible, a 11.5-cm round patch was selected. The mesh was rolled and moistened with saline after it was placed within the peritoneal cavity and unfurled. The insufflation tubing was brought through a small stab wound superior to the umbilicus to allow at least 5 cm below the umbilicus and 6 cm above the hernia. The insufflation tubing was inflated and the mesh brought into close approximation with the anterior abdominal wall. It was secured to the anterior abdominal wall with absorbatacks after which the mesh backbone was removed without problem. The remainder of the mesh was then affixed to the anterior abdominal wall using absorbatacks. After completion of the repair, the hernia was seen to be well covered as was the superior aspect which represented a diastasis. No bleeding was noted. The peritoneal cavity was then evacuated as completely as possible of carbon dioxide. The ports were removed and the 12 mm fascial defect closed with interrupted 0 Vicryl suture. Attention was turned to the right inguinal hernia. Further local anesthesia was infiltrated in the skin and a transverse right inguinal incision was made, carried down sharply through the subcutaneous tissue with the cautery being used for hemostasis. Incision was deepened in the external oblique fascia which was incised in the direction of its fibers down to and through the external ring. The underside of the fascia was cleaned and the spermatic cord isolated with a Layne drain. The patient was found to have a very large direct inguinal hernia and the floor was cleared of adhesions using the cautery. The inguinal floor was then repaired by bringing the internal oblique fascia and muscle to the shelving edge of the inguinal ligament using interrupted 0 Vicryl sutures. In this manner, the internal ring was recreated. An indirect hernia sac was searched for with none being identified and a lipoma of the cord was removed with the cautery without problem. A piece of ProGrip mesh was then cut to the appropriate shape and secured anterior to the floor repair by pressing its posterior Vicryl hooks into the surrounding tissues. A single suture of 0 Prolene was brought between the mesh and the pubis. Hemostasis was checked for and found to be satisfactory. The external oblique fascia was then closed with a running 3-0 Vicryl suture. The subcutaneous tissue was closed with interrupted 3-0 Vicryl suture and the skin was closed with a running 4-0 PDS subcuticular stitch. The remaining incisions were closed with interrupted 4-0 PDS subcuticular stitch. Steri-Strips were applied and the patient was then awakened and taken from the operating, in satisfactory condition, having tolerated the procedure without a problem. Estimated blood loss was less than 10 mL. The instrument, sponge, needle counts were reported as being correct x2 at the end of the procedure. MD BEVERLEY Anne/ /12:54 PM 9:47 PM
== END | disposition home or self-care (01) ==
LOC: HSDC 08:02
PROVIDERS: ATTEND Surgery
DX: K42.9 Umbilical hernia without obstruction or gangrene (principal); K40.90 Unilateral inguinal hernia, without obstruction or gangrene, not specified as recurrent; K21.9 Gastro-esophageal reflux disease without esophagitis; K59.00 Constipation, unspecified; M51.36 Other intervertebral disc degeneration, lumbar region; M47.816 Spondylosis without myelopathy or radiculopathy, lumbar region; E11.9 Type 2 diabetes mellitus without complications; R07.9 Chest pain, unspecified; G89.29 Other chronic pain; M12.88 Other specific arthropathies, not elsewhere classified, other specified site
CPT/HCPCS: 00750; 49505; 49652; C1781; C9290; J0690; J1100; J1885; J2250; J2270; J2405; J2710; J3010; J7120; 99211; G0463; J0131

== ENCOUNTER 2017-02-01 16:53 | Emergency (ER) | payer OTHER ==
[~2017-02-01] VITALS: Ht 175.3 cm; Wt 80.0 kg
[~2017-02-01 16:53] MED LIST changes: -*morphine SULFATE 8 MG/ML PERIprocedure ONLY ONE; -ACETAMINOPHEN 1000 MG/100 ML 0 ML IV ONE; -ACETAMINOPHEN 1000 MG/100 ML 100 ML IV SCH; -BUPIVACAINE LIPOSOME PF 1.3% 20 ML VIAL ONE; -BUPIVACAINE/EPINEPHRINE 0.5% 50 ML VIAL ONE; -CHLORHEXIDINE GLUCONATE 2 % 1 PACK (2 CLOTHS) TOPICAL PRN; -DEXAMETHASONE SOD PHOS 4 MG/ML VIAL IV ONE; -DO NOT ADM ANY ANTICOAGULANT DRUGS PRN; -ESMOLOL HCL 100 MG/10 ML VIAL IV ONE; -GLYCOPYRROLATE 1 MG/5 ML SYRINGE IV PUSH ONE; -INSULIN HUMAN REGULAR 1,000 UNITS/10 ML VIAL SQ PRN; -KETOROLAC TROMETHAMINE 30 MG/ML (IVP) VIAL IV PUSH ONE; -LACTATED RINGER'S 1000 ML INJ 1,000 ML IV ONE; -LACTATED RINGER'S 1000 ML IV PRN; -LIDOCAINE HCL 1% PF 5 ML AMPULE OTHER ONE; -METOPROLOL TARTRATE 25 MG TAB PO PRN; -MIDAZOLAM HCL 2 MG/2 ML VIAL IV ONE; -MORPHINE SULFATE 4 MG/ML INJ IV PUSH PRN; -NEOSTIGMINE 3 MG/3 ML SYR IV ONE; -ONDANSETRON HCL 4 MG/2 ML VIAL IV PUSH ONE; -ONDANSETRON HCL 4 MG/2 ML VIAL IV PUSH PRN; -POVIDONE IODINE 5% (ANTISEPSIS KIT) 4 APPLICATIONS EACH NARE PRN; -PROPOFOL 200 MG/20 ML AMP IV ONE; -ROCURONIUM INJ 50 MG/5 ML SYRINGE IV PUSH ONE; -SODIUM CHLORID 0.9% 500 ML IV PRN; -SODIUM CHLORIDE 0.9% 20 ML VIAL IV ONE; -ceFAZolin 2 GM PREMIX 50 ML IV SCH; -oxyCODONE/ACETAMINOPHEN 5 MG/325 MG TAB PO PRN
[2017-02-01 16:54] VITALS: BP 129/95; PULSE 106; RESP 20; TEMP 99.9; O2SAT 95
--- NOTE | 2017-02-01 17:31 | PD ---
Physical Exam Date Seen by Provider: Feb 01, 2017 Time Seen by Provider: 17:29 Narrative 56-year-old black male presents from her department with complaints of abdominal pain, nausea, vomiting. He is status post herniorrhaphy on Tuesday by Dr. Jung. Patient has had a subjective fever with chills. He states that he has not been able to sleep. He's been having nightmares as well. Pain is severe. Patient states that he cannot eat or swallow. Vital signs reviewed. Pt waiting for bed placement. Data Data Last Documented VS Vital Signs Date Time Temp Pulse Resp B/P (MAP) Pulse Ox O2 Delivery O2 Flow Rate FiO2 02/01/17 16:54 99.9 106 20 129/95 (106) 95 Room Air [facility] Medical Record Reviewed: No Supervised Visit with JAH: Xander Jc Feb 01, 2017 17:31
[2017-02-01] MEDS ORDERED: SODIUM CHLOR 0.9% 1000 ML INJ 1,000 ML IV ONE (17:45)
[2017-02-01 18:20] LABS: BASOPHIL % 0.4 % (0.0-2.0); EOSINOPHIL # 0.1 TH/MM3 (0-0.4); EOSINOPHIL % 2.2 % (0.0-4.0); HEMATOCRIT 44.9 % (39.0-51.0); HEMO FLAGS DIFF FINAL; LYMPH % 15.4 % (9.0-44.0); LYMPHOCYTE # 0.9 TH/MM3 (1.0-4.8); MEAN CELL VOLUME 87.8 FL (80.0-100.0); MEAN CORPUSCULAR HEMOGLOBIN 29.4 PG (27.0-34.0); MEAN CORPUSCULAR HGB CONC 33.4 % (32.0-36.0); MONO % 13.3 % (0.0-8.0); NEUT % 68.7 % (16.0-70.0); PLATELET COUNT 219 TH/MM3 (150-450); RED BLOOD COUNT 5.12 MIL/MM3 (4.50-5.90); RED CELL DISTRIBUTION WIDTH 17.9 % (11.6-17.2); WHITE BLOOD COUNT 5.8 TH/MM3 (4.0-11.0)
[2017-02-01 18:34] LABS: BLOOD, URINE SMALL (NEG); GLUCOSE,URINE NEG (NEG); KETONE, URINE NEG (NEG); NITRITE,URINE NEG (NEG); URINE COLOR YELLOW (YELLW/STRAW)
[2017-02-01] MEDS ORDERED: GABA600T PO (18:46)
[2017-02-01] MEDS ORDERED: ONDANSETRON HCL 4 MG/2 ML VIAL IV PUSH ONE (19:00)
[2017-02-01] MEDS ORDERED: HYDROmorphone HCL PF 1 MG/ML VIAL IV PUSH ONE (19:00)
[2017-02-01 19:45] LABS: ALT (GPT) 39 U/L (12-78)
[2017-02-01 19:48] LABS: ALKALINE PHOSPHATASE 105 U/L (45-117); TOTAL BILIRUBIN ADULT 0.7 MG/DL (0.2-1.0)
[2017-02-01 20:10] LABS: ANION GAP 6 MEQ/L (5-15); AST (GOT) 33 U/L (15-37); BICARBONATE 28.7 MEQ/L (21.0-32.0); BLOOD UREA NITROGEN 12 MG/DL (7-18); CHLORIDE 98 MEQ/L (98-107); GLOMERULAR FILTRATION RATE 82 ML/MIN (>89); POTASSIUM 4.2 MEQ/L (3.5-5.1); SODIUM (NA) 133 MEQ/L (136-145)
[2017-02-01] MEDS ORDERED: IOHEXOL 350 MG/ML 10 ML VIAL (for RAD DIAG) IVCONTRAST ONE (20:30)
--- NOTE | 2017-02-01 20:36 | PD ---
HPI Chief Complaint: Abdominal Pain Time Seen by Provider: 18:51 Travel History International Travel<30 days: No Contact w/Intl Traveler<30days: No Traveled to known affect area: No History of Present Illness HPI 56-year-old male that presents to the ED for evaluation of abdominal pain and inability to eat since having surgery on Tuesday. Patient reports that he had surgery by Dr. gonsalez for a hernia repair for the umbilicus as well as the right lower quadrant groin. Patient states that he's been doing okay after the surgery but he's been continuing to have pain just progressively gotten worse. Last had a bowel movement 2 days ago. She denies taking any blood thinners. No new injuries. No chest pain or shortness of breath. He states that he's had some chest pain whenever he sits up. He states that the pain medication he was given its not helping much. He has not been able to contact Dr. gonsalez. He denies any urinary symptoms. States the pain is mostly to the abdomen and he feels bloated. He states that his pain currently is 7 out of 10. More significant on the areas of the surgical scars. He denies any sweats but states having some subjective fevers and chills. Patient states mainly on the abdomen. PFSH Past Medical History Arthritis: Yes Heart Rhythm Problems: No Cancer: No Cardiac Catheterization: No Cardiovascular Problems: No High Cholesterol: Yes Congestive Heart Failure: No Diabetes: No Diminished Hearing: No Endocrine: No Genitourinary: No Hepatitis: No Hiatal Hernia: Yes Immune Disorder: No Inguinal Hernia: Yes Musculoskeletal: Yes (BACK PAIN HX) Neurologic: No Psychiatric: No Reproductive: No Respiratory: No Immunizations Current: Yes Thyroid Disease: No Past Surgical History Abdominal Surgery: No AICD: No Cardiac Surgery: No Coronary Artery Bypass Graft: No Ear Surgery: No Eye Surgery: No Genitourinary Surgery: No Gynecologic Surgery: No Joint Replacement: No Oral Surgery: No Pacemaker: No Thoracic Surgery: No Other Surgery: Yes (HERNIA ) Family History Family Myocardial Infarction: Yes Social History Alcohol Use: Yes (EVERY DAY, PT DENIES ) Tobacco Use: No (QUIT 2 MONTHS AGO) Substance Use: No (PT DENIES) Allergies-Medications (Allergen,Severity, Reaction): Coded Allergies: No Known Allergies (Unverified Adverse Reaction, Unknown, 02/01/17) Reported Meds & Prescriptions Reported Meds & Active Scripts Active Percocet (Oxycodone-Acetaminophen) 5-325 mg Tab 1 Tab PO Q6H PRN Reported Gabapentin 600 Mg Tab 600 Mg PO HS Tramadol (Tramadol HCl) 50 Mg Tab 50 Mg PO Q8H PRN Tizanidine (Tizanidine HCl) 4 Mg Tab 4 Mg PO HS Review of Systems Except as stated in HPI: all other systems reviewed are Neg Physical Exam Narrative GENERAL: SKIN: Warm and dry. HEAD: Atraumatic. Normocephalic. EYES: Pupils equal and round. No scleral icterus. No injection or drainage. ENT: No nasal bleeding or discharge. Mucous membranes pink and moist. Tongue is midline. No uvula deviation. NECK: Trachea midline. No JVD. CARDIOVASCULAR: Regular rate and rhythm. No murmurs, S3, S4. RESPIRATORY: No accessory muscle use. Clear to auscultation. Breath sounds equal bilaterally. GASTROINTESTINAL: Abdomen soft, tender to touch especially on the umbilicus and the right lower quadrant, nondistended. Hepatic and splenic margins not palpable. MUSCULOSKELETAL: Extremities without clubbing, cyanosis, or edema. No obvious deformities. Full range of motion of the upper and lower extremities bilaterally. 2+ pulses bilaterally. NEUROLOGICAL: Awake and alert. No obvious cranial nerve deficits. Motor grossly within normal limits. Five out of 5 muscle strength in the arms and legs. Normal speech. PSYCHIATRIC: Appropriate mood and affect; insight and judgment normal. Data Data Last Documented VS Vital Signs Date Time Temp Pulse Resp B/P (MAP) Pulse Ox O2 Delivery O2 Flow Rate FiO2 02/01/17 16:54 99.9 106 20 129/95 (106) 95 Room Air Orders Orders Complete Blood Count With Diff (02/01/17 17:32) Comprehensive Metabolic Panel (02/01/17 17:32) Lipase (02/01/17 17:32) Ua Includes Microscopic (02/01/17 17:32) Ct Abd/Pel W Iv Contrast(Rout) (02/01/17 17:32) Iv Access Insert/Monitor (02/01/17 17:32) Lactic Acid (02/01/17 17:32) Sodium Chlor 0.9% 1000 Ml Inj (Ns 1000 M (02/01/17 17:45) Hydromorphone Pf Inj (Dilaudid Pf Inj) (02/01/17 19:00) Ondansetron Inj (Zofran Inj) (02/01/17 19:00) Iohexol 350 Inj (Omnipaque 350 Inj) (02/01/17 20:30) Hydromorphone Pf Inj (Dilaudid Pf Inj) (02/01/17 21:15) Labs Laboratory Tests Test 02/01/17 17:41 02/01/17 17:43 02/01/17 18:45 02/01/17 19:10 White Blood Count 5.8 TH/MM3 Red Blood Count 5.12 MIL/MM3 Hemoglobin 15.0 GM/DL Hematocrit 44.9 % Mean Corpuscular Volume 87.8 FL Mean Corpuscular Hemoglobin 29.4 PG Mean Corpuscular Hemoglobin Concent 33.4 % Red Cell Distribution Width 17.9 % Platelet Count 219 TH/MM3 Mean Platelet Volume 8.1 FL Neutrophils (%) (Auto) 68.7 % Lymphocytes (%) (Auto) 15.4 % Monocytes (%) (Auto) 13.3 % Eosinophils (%) (Auto) 2.2 % Basophils (%) (Auto) 0.4 % Neutrophils # (Auto) 4.0 TH/MM3 Lymphocytes # (Auto) 0.9 TH/MM3 Monocytes # (Auto) 0.8 TH/MM3 Eosinophils # (Auto) 0.1 TH/MM3 Basophils # (Auto) 0.0 TH/MM3 CBC Comment DIFF FINAL Differential Comment Urine Color YELLOW Urine Turbidity CLEAR Urine pH 6.0 Urine Specific [place] 1.020 Urine Protein TRACE mg/dL Urine Glucose (UA) NEG mg/dL Urine Ketones NEG mg/dL Urine Occult Blood SMALL Urine Nitrite NEG Urine Bilirubin NEG Urine Urobilinogen LESS THAN 2.0 MG/DL Urine Leukocyte Esterase NEG Urine RBC 2 /hpf Urine WBC LESS THAN 1 /hpf Lactic Acid Level 1.1 mmol/L Blood Urea Nitrogen 12 MG/DL Creatinine 1.12 MG/DL Random Glucose 129 MG/DL Total Protein 9.0 GM/DL Albumin 4.0 GM/DL Calcium Level 9.2 MG/DL Alkaline Phosphatase 105 U/L Aspartate Amino Transf (AST/SGOT) 33 U/L Alanine Aminotransferase (ALT/SGPT) 39 U/L Total Bilirubin 0.7 MG/DL Sodium Level 133 MEQ/L Potassium Level 4.2 MEQ/L Chloride Level 98 MEQ/L Carbon Dioxide Level 28.7 MEQ/L Anion Gap 6 MEQ/L Estimat Glomerular Filtration Rate 82 ML/MIN Lipase 147 U/L [facility] Medical Decision Making Medical Screen Exam Complete: Yes Emergency Medical Condition: Yes Medical Record Reviewed: Yes Interpretation(s) CBC & BMP Diagram 02/01/17 17:41 02/01/17 19:10 Total Protein 9.0 H, Albumin 4.0, Calcium Level 9.2, Alkaline Phosphatase 105, Aspartate Amino Transf (AST/SGOT) 33, Alanine Aminotransferase (ALT/SGPT) 39, Total Bilirubin 0.7 UA shows some occult blood Last Impressions Abdomen/Pelvis CT 02/01/17 5032 Signed Impressions: Service Date/Time: Wednesday, February 01, 2017 20:26 - CONCLUSION: 1. Nonspecific, nonobstructive bowel gas pattern which may represent ileus or gastroenteritis. 2. Small calcifications in the posterior head of the pancreas most characteristic of chronic pancreatitis. 3. Mild hepatic steatosis. 4. Unremarkable gallbladder. 5. Apparent post surgical changes in the right groin status post hernia repair. Jean Carlos Luecro MD Differential Diagnosis Abdominal pain versus postsurgical pain versus postsurgical complication versus perforation versus constipation versus obstruction Narrative Course 56-year-old male that presents to the ED for evaluation of abdominal pain after surgery. Patient was properly examined and was found to have signs and symptoms of unclear etiology but likely related to the surgery. Labs and imaging were ordered by triage provider. Labs were essentially unremarkable. Patient very tender on exam. We'll do CT. Labs and imaging were essentially unremarkable. Imaging did show some ileus and gastroenteritis as well as chronic changes. No sign of infection or perforation or obstruction. This was discussed in my attending Dr. Bassett who agrees that she speak with the surgeon as patient had recent surgery. I spoke with Dr. Mota who is on- call for Dr. Gonsalez was made aware of all findings and agrees the patient can be safely discharged home with instructions to follow with Dr. Gonsalez tomorrow morning. Patient was told this and agrees with plan. I will prescribe patient a short prescription for Percocet to help with his pain is his a rate taking Lortab with minimal improvement of his discomfort. Patient did get relief from medications given here. Patient understands reasons to come back. Patient was told to follow with Dr. gonsalez tomorrow morning. He agrees and understands this plan. See ED for worsening symptoms. Follow with PCP. Diagnosis Primary Impression: Gastroenteritis Referrals: Michael Gonsalez MD Patient Instructions: General Instructions, Narcotic given in the ED Additional Instructions: Take medications as prescribed. Follow-up with Dr Gonsalez on tuesday for follow up. See ED for any worsening symptoms. Do not drink or drive while taking pain medication. Apply ice or heat as needed for pain Med/Other Pt SpecificInfo: Prescription(s) given Scripts Oxycodone-Acetaminophen (Percocet) 5-325 mg Tab 1 TAB PO Q6H Y for PAIN, #10 TAB 0 Refills Prov: Tushar Bassett MD 02/01/17 Disposition: 01 DISCHARGE HOME Condition: Bertrand Bravo Feb 01, 2017 20:36
--- NOTE | 2017-02-01 20:45 | RADRPT ---
EXAM DATE/TIME: 02/01/2017 20:26 [facility] COMPARISON: No previous studies available for comparison. INDICATIONS : Groin pain and abdomen pain. Post hernia surgery. IV CONTRAST: 100 cc Omnipaque 350 (iohexol) IV ORAL CONTRAST: No oral contrast ingested. RADIATION DOSE: 8.50 CTDIvol (mGy) MEDICAL HISTORY : None SURGICAL HISTORY : Inguinal hernia repair. ENCOUNTER: Initial ACUITY: 1 day PAIN SCALE: 10/10 LOCATION: groin. TECHNIQUE: Volumetric scanning of the abdomen and pelvis was performed. Using automated exposure control and ad justment of the mA and/or kV according to patient size, radiation dose was kept as low as reasonably achievable to obtain optimal diagnostic quality images. DICOM format image data is available electro nically for review and comparison. FINDINGS: LOWER LUNGS: There is mild scarring at the lung bases as well as bullous change. LIVER: Homogeneous density without lesion. There is no dilation of the biliary tree. No calcified gallston es. SPLEEN: Normal size without lesion. PANCREAS: There are multiple small punctate calcifications in the posterior the pancreas. The body and tail jose ear unremarkable there is no focal mass or ductal dilatation. There is no inflammatory change. A hepa tic steatosis. The gallbladder is unremarkable. KIDNEYS: Normal in size and shape. There is no mass, stone or hydronephrosis. ADRENAL GLANDS: Within normal limits. VASCULAR: There is no aortic aneurysm. BOWEL/MESENTERY: There are multiple loops of nondilated air-containing small bowel with several small air-fluid levels . Gas and stool is noted segmentally in the colon. There is a normal appendix. There is no free air o r fluid. ABDOMINAL WALL: Within normal limits. RETROPERITONEUM: There is no lymphadenopathy. BLADDER: No wall thickening or mass. REPRODUCTIVE: Within normal limits. INGUINAL: There is no lymphadenopathy or recurrent hernia. There are postsurgical changes involving the right i nguinal ring and groin consistent with prior hernia surgery. MUSCULOSKELETAL: Within normal limits for patient age. CONCLUSION: 1. Nonspecific, nonobstructive bowel gas pattern which may represent ileus or gastroenteritis. 2. Small calcifications in the posterior head of the pancreas most characteristic of chronic pancreat itis. 3. Mild hepatic steatosis. 4. Unremarkable gallbladder. 5. Apparent post surgical changes in the right groin status post hernia repair. Jean Carlos Lucero MD on February 01, 2017 at 20:40 Board Certified Radiologist. This report was verified electronically.
[2017-02-01] MEDS ORDERED: HYDR-3533 PO (20:58)
[2017-02-01] MEDS ORDERED: PERC5TAB12 PO (21:02)
[2017-02-01] MEDS ORDERED: HYDROmorphone HCL PF 0.5 MG/0.5 ML SYRINGE IV PUSH ONE (21:15)
== END 2017-02-01 21:20 | disposition home or self-care (01) ==
LOC: NEPE 16:53
DX: K52.9 Noninfective gastroenteritis and colitis, unspecified (principal); K76.0 Fatty (change of) liver, not elsewhere classified; K86.1 Other chronic pancreatitis; R07.9 Chest pain, unspecified
CPT/HCPCS: 74177; 80053; 81001; 83605; 83690; 85025; 96361; 96374; 96375; 96376; 99285; J1170; J2405; J7030; Q9967

== ENCOUNTER 2017-02-05 04:13 | Emergency (ER) | payer OTHER ==
[~2017-02-05] VITALS: Ht 175.3 cm; Wt 82.0 kg
[~2017-02-05 04:13] MED LIST changes: +GABA600T PO; +PERC5TAB12 PO
[2017-02-05 04:15] VITALS: BP 182/103; PULSE 97; RESP 18; TEMP 99.5; O2SAT 99
[2017-02-05] MEDS ORDERED: ONDANSETRON HCL 4 MG/2 ML VIAL IV PUSH ONE (05:30)
--- NOTE | 2017-02-05 05:30 | PD ---
HPI Chief Complaint: GI Complaint Time Seen by Provider: 05:15 Travel History International Travel<30 days: No Contact w/Intl Traveler<30days: No Traveled to known affect area: No History of Present Illness HPI 56yo M presents to the ED with c/o abdominal pain since his hernia repair on . Pt had umbilical and right inguinal hernia repair by Dr. Jung and said he has been having pain. Said last bowel movement was about 2 days ago. + Nausea. Also states pain is radiating up to his chest. Pt was seen 02/01/17 for this abdominal pain and had CT a/p that showed gastroenteritis, ileus. Dr. Mota who was covering Dr. Jung was called and pt was to follow up as outpatient. Pt also had recent chest pain center admission and negative stress test on 12/16/16. Denies any fever, urinary complaints. PFSH Past Medical History Arthritis: Yes Heart Rhythm Problems: No Cancer: No Cardiac Catheterization: No Cardiovascular Problems: No High Cholesterol: Yes Congestive Heart Failure: No Diabetes: No Diminished Hearing: No Endocrine: No Genitourinary: No Hepatitis: No Hiatal Hernia: Yes Immune Disorder: No Inguinal Hernia: Yes Musculoskeletal: Yes (BACK PAIN HX) Neurologic: No Psychiatric: No Reproductive: No Respiratory: No Immunizations Current: Yes Thyroid Disease: No Past Surgical History Abdominal Surgery: No AICD: No Cardiac Surgery: No Coronary Artery Bypass Graft: No Ear Surgery: No Eye Surgery: No Genitourinary Surgery: No Gynecologic Surgery: No Joint Replacement: No Oral Surgery: No Pacemaker: No Thoracic Surgery: No Other Surgery: Yes (HERNIA ) Family History Family Myocardial Infarction: Yes Social History Alcohol Use: Yes (EVERY DAY, PT DENIES ) Tobacco Use: No (QUIT 2 MONTHS AGO) Substance Use: No (PT DENIES) Allergies-Medications (Allergen,Severity, Reaction): Coded Allergies: No Known Allergies (Verified Adverse Reaction, Unknown, 02/05/17) Reported Meds & Prescriptions Reported Meds & Active Scripts Active Tylenol (Acetaminophen) 325 Mg Tab 650 Mg PO Q6H PRN Colace (Docusate Sodium) 100 Mg Capsule 1 Tab PO BID 10 Days Percocet (Oxycodone-Acetaminophen) 5-325 mg Tab 1 Tab PO Q6H PRN Reported Gabapentin 600 Mg Tab 600 Mg PO HS Tramadol (Tramadol HCl) 50 Mg Tab 50 Mg PO Q8H PRN Tizanidine (Tizanidine HCl) 4 Mg Tab 4 Mg PO HS Review of Systems Except as stated in HPI: all other systems reviewed are Neg Physical Exam Narrative GENERAL: 56yo M in moderate distress. SKIN: Focused skin assessment warm/dry. HEAD: Atraumatic. Normocephalic. EYES: Pupils equal and round. No scleral icterus. No injection or drainage. ENT: No nasal bleeding or discharge. Mucous membranes pink and moist. NECK: Trachea midline. No JVD. CARDIOVASCULAR: Regular rate and rhythm. No murmur appreciated. RESPIRATORY: No accessory muscle use. Clear to auscultation. Breath sounds equal bilaterally. GASTROINTESTINAL: Abdomen soft, Diffuse ttp. Steri strips cover incision sites clean/dry/intact. MUSCULOSKELETAL: No obvious deformities. No clubbing. No cyanosis. No edema. NEUROLOGICAL: Awake and alert. No obvious cranial nerve deficits. Motor grossly within normal limits. Normal speech. PSYCHIATRIC: Appropriate mood and affect; insight and judgment normal. Data Data Last Documented VS Vital Signs Date Time Temp Pulse Resp B/P (MAP) Pulse Ox O2 Delivery O2 Flow Rate FiO2 02/05/17 04:15 99.5 97 18 182/103 (129) 99 Room Air Orders Orders Electrocardiogram (02/05/17 ) Chest, Single Ap (02/05/17 ) Complete Blood Count With Diff (02/05/17 05:21) Comprehensive Metabolic Panel (02/05/17 05:21) Lipase (02/05/17 05:21) Ct Abd/Pel W Iv Contrast(Rout) (02/05/17 ) Urinalysis - C+S If Indicated (02/05/17 05:21) Troponin I (02/05/17 05:21) Ondansetron Inj (Zofran Inj) (02/05/17 05:30) Iohexol 350 Inj (Omnipaque 350 Inj) (02/05/17 06:50) Morphine Inj (Morphine Inj) (02/05/17 07:30) Fleets Enema (Adult) (Fleets Enema (Adul (02/05/17 07:30) Al-Mag Hy-Si 40-40-4 Mg/Ml Liq (Mag-Al P (02/05/17 07:45) Lidocaine 2% Viscous (Xylocaine 2% Visco (02/05/17 07:45) Labs Laboratory Tests Test 02/05/17 05:38 White Blood Count 7.7 TH/MM3 Red Blood Count 4.97 MIL/MM3 Hemoglobin 14.5 GM/DL Hematocrit 44.0 % Mean Corpuscular Volume 88.5 FL Mean Corpuscular Hemoglobin 29.2 PG Mean Corpuscular Hemoglobin Concent 33.0 % Red Cell Distribution Width 17.2 % Platelet Count 252 TH/MM3 Mean Platelet Volume 7.6 FL Neutrophils (%) (Auto) 75.5 % Lymphocytes (%) (Auto) 11.9 % Monocytes (%) (Auto) 11.8 % Eosinophils (%) (Auto) 0.3 % Basophils (%) (Auto) 0.5 % Neutrophils # (Auto) 5.8 TH/MM3 Lymphocytes # (Auto) 0.9 TH/MM3 Monocytes # (Auto) 0.9 TH/MM3 Eosinophils # (Auto) 0.0 TH/MM3 Basophils # (Auto) 0.0 TH/MM3 CBC Comment DIFF FINAL Differential Comment Blood Urea Nitrogen 7 MG/DL Creatinine 0.96 MG/DL Random Glucose 105 MG/DL Total Protein 8.7 GM/DL Albumin 3.7 GM/DL Calcium Level 9.0 MG/DL Alkaline Phosphatase 80 U/L Aspartate Amino Transf (AST/SGOT) 31 U/L Alanine Aminotransferase (ALT/SGPT) 30 U/L Total Bilirubin 0.6 MG/DL Sodium Level 133 MEQ/L Potassium Level 4.9 MEQ/L Chloride Level 100 MEQ/L Carbon Dioxide Level 24.4 MEQ/L Anion Gap 9 MEQ/L Estimat Glomerular Filtration Rate 99 ML/MIN Troponin I LESS THAN 0.02 NG/ML Lipase 122 U/L [facility] Medical Decision Making Medical Screen Exam Complete: Yes Emergency Medical Condition: Yes Interpretation(s) EKG: NSR 69bpm. Normal axis. No ST segment elevation or depression. Differential Diagnosis Bowel obstruction vs. abscess vs. constipation vs. atypical chest pain Narrative Course 56yo M here with abdominal pain and said it is going up to his chest. Labs reviewed, no leukocytosis. Troponin negative. Mild hyponatremia of 133. LFTs normal Lipase normal. CT a/p showed no acute CT abnormality in abdomen or pelvis. No bowel obstruction. CXR negative. Pt given morphine for pain and GI cocktail for the burning in his chest that I do not think is cardiac. Also given zofran for nausea. Pt recently had negative stress test in 12/2016. There is no signs of infection on exam on the surgical wounds. Pt is to follow up with Dr. Jung as outpatient. Pt also given fleet enema to help with bowel movement. Will discharge with stool softener. Return precautions given. Diagnosis Primary Impression: Abdominal pain Qualified Codes: R10.84 - Generalized abdominal pain Referrals: Michael Jung MD call for appointment Patient Instructions: General Instructions Departure Forms: Tests/Procedures Additional Instructions: Please follow up with Dr. Jung in 1-2 days. Return to the ED if symptoms worsen. Med/Other Pt SpecificInfo: Prescription(s) given Scripts Acetaminophen (Tylenol) 325 Mg Tab 650 MG PO Q6H Y for PAIN SCALE 1 TO 4, #20 TAB 0 Refills Prov: Sayra Kelly DO 02/05/17 Docusate Sodium (Colace) 100 Mg Capsule 1 TAB PO BID for 10 Days Prov: Sayra Kelly DO 02/05/17 Disposition: 01 DISCHARGE HOME Condition: Stable Sayra Kelly DO Feb 05, 2017 05:30
--- NOTE | 2017-02-05 05:56 | RADRPT ---
EXAM DATE/TIME: 02/05/2017 05:47 [facility] COMPARISON: CHEST SINGLE AP, December 16, 2016, 7:52. INDICATIONS : Chest pain. MEDICAL HISTORY : None. SURGICAL HISTORY : None. ENCOUNTER: Initial ACUITY: 1 day PAIN SCORE: 10/10 LOCATION: Bilateral chest FINDINGS: Single AP view of the chest. The lungs are clear. Cardiomediastinal silhouette within normal limits. No evidence of pleural effusion or pneumothorax. CONCLUSION: No acute cardiopulmonary disease identified. Emiliano Thomson MD on February 05, 2017 at 5:54 Board Certified Radiologist. This report was verified electronically.
[2017-02-05 05:58] LABS: AUTOMATED NEUTROPHIL # 5.8 TH/MM3 (1.8-7.7); BASOPHIL % 0.5 % (0.0-2.0); EOSINOPHIL % 0.3 % (0.0-4.0); HEMO FLAGS DIFF FINAL; LYMPH % 11.9 % (9.0-44.0); LYMPHOCYTE # 0.9 TH/MM3 (1.0-4.8); MEAN CELL VOLUME 88.5 FL (80.0-100.0); MEAN CORPUSCULAR HEMOGLOBIN 29.2 PG (27.0-34.0); MONO % 11.8 % (0.0-8.0); NEUT % 75.5 % (16.0-70.0); PLATELET COUNT 252 TH/MM3 (150-450); RED BLOOD COUNT 4.97 MIL/MM3 (4.50-5.90); RED CELL DISTRIBUTION WIDTH 17.2 % (11.6-17.2); WHITE BLOOD COUNT 7.7 TH/MM3 (4.0-11.0)
[2017-02-05 06:33] LABS: ALKALINE PHOSPHATASE 80 U/L (45-117); TOTAL BILIRUBIN ADULT 0.6 MG/DL (0.2-1.0)
[2017-02-05 06:35] LABS: ALT (GPT) 30 U/L (12-78); ANION GAP 9 MEQ/L (5-15); AST (GOT) 31 U/L (15-37); BICARBONATE 24.4 MEQ/L (21.0-32.0); BLOOD UREA NITROGEN 7 MG/DL (7-18); CHLORIDE 100 MEQ/L (98-107); GLOMERULAR FILTRATION RATE 99 ML/MIN (>89); POTASSIUM 4.9 MEQ/L (3.5-5.1); SODIUM (NA) 133 MEQ/L (136-145)
[2017-02-05] MEDS ORDERED: IOHEXOL 350 MG/ML 10 ML VIAL (for RAD DIAG) IVCONTRAST ONE (06:50)
--- NOTE | 2017-02-05 07:08 | RADRPT ---
EXAM DATE/TIME: 02/05/2017 06:45 [facility] COMPARISON: CT ABDOMEN & PELVIS W CONTRAST, February 01, 2017, 20:26. INDICATIONS : Diffuse abdominal pain post recent hernia surgery. IV CONTRAST: 95 cc Omnipaque 350 (iohexol) IV ORAL CONTRAST: No oral contrast ingested. RADIATION DOSE: 8.71 CTDIvol (mGy) MEDICAL HISTORY : Hernia, hiatal. SURGICAL HISTORY : Inguinal hernia repair. ENCOUNTER: Initial ACUITY: 4 - 6 days PAIN SCALE: 9/10 LOCATION: All quadrants. TECHNIQUE: Volumetric scanning of the abdomen and pelvis was performed. Using automated exposure control and ad justment of the mA and/or kV according to patient size, radiation dose was kept as low as reasonably achievable to obtain optimal diagnostic quality images. DICOM format image data is available electro nically for review and comparison. FINDINGS: LOWER LUNGS: Paraseptal emphysema the lung bases medially. LIVER: Homogeneous density without lesion. There is no dilation of the biliary tree. No calcified gallston es. SPLEEN: Normal size without lesion. PANCREAS: Redemonstration of calcifications near the pancreatic head similar to prior CT exam consistent with p rior pancreatitis. KIDNEYS: Subcentimeter hypodense cystic lesion in the posterior superior pole of the left kidney which is too small to fully characterize. Kidneys demonstrate symmetrical enhancement without evidence of hydronep hrosis or radiopaque renal calculi. ADRENAL GLANDS: Within normal limits. VASCULAR: There is no aortic aneurysm. BOWEL/MESENTERY: Appears unremarkable without evidence for obstruction. Previously noted nondilated loops of fluid con taining small bowel appear decompressed in current exam. No pneumatosis or free air. No free fluid or drainable fluid collections. Appendix is visualized and normal in appearance. ABDOMINAL WALL: Redemonstration of periumbilical or abnormal hernia with apparent postsurgical features of prior mesh repair. RETROPERITONEUM: There is no lymphadenopathy. BLADDER: No wall thickening or mass. REPRODUCTIVE: Nonspecific enlargement prostate gland. INGUINAL: Postsurgical features in the right inguinal region. Redemonstration of fat-containing left inguinal h ernia. MUSCULOSKELETAL: Within normal limits for patient age. CONCLUSION: 1. No acute CT abnormality in the abdomen or pelvis. 2. Stable postoperative features of right internal hernia repair and remote anterior abdominal wall p eriumbilical hernia mesh repair. 3. No evidence for bowel obstruction. Previously noted nondistended fluid filled loops of small bowel appear decompressed on current exam. 4. Stable ancillary findings, as above. David Mendes MD on February 05, 2017 at 6:57 Board Certified Radiologist. This report was verified electronically.
[2017-02-05] MEDS ORDERED: MORPHINE SULFATE 4 MG/ML INJ IV PUSH ONE (07:30)
[2017-02-05] MEDS ORDERED: SOD PHOSPHATE/SOD BIPHOSPHATE (ADULT) ENEMA 133ML RECTAL ONE (07:30)
[2017-02-05] MEDS ORDERED: TYLE325T PO (07:44)
[2017-02-05] MEDS ORDERED: COLA100C5 PO (07:44)
[2017-02-05] MEDS ORDERED: ALUMINUM/MAGNESIUM/SIMETH 30 ML CUP PO ONE (07:45)
[2017-02-05] MEDS ORDERED: LIDOCAINE VISCOUS 2% SOLN 15 ML UDC PO ONE (07:45)
[2017-02-05 08:40] LABS: BLOOD, URINE NEG (NEG); GLUCOSE,URINE NEG (NEG); KETONE, URINE NEG (NEG); NITRITE,URINE NEG (NEG); PH, URINE 5.5 (5.0-8.5); URINE COLOR LIGHT-YELLOW (YELLW/STRAW)
[2017-02-05 08:44] LABS: COMMENT (UR) CULT NOT INDICATED; CULTURE IF INDICATED CULT NOT INDICATED
--- NOTE | 2017-02-06 08:57 | EKG ---
Date Performed: 02/05/2017 Time Performed: 05:43:55 PTAGE: 56 years EKG: Sinus rhythm Compared to prior tracing no significant change NORMAL ECG PREVIOUS TRACING : 12/16/2016 10.54 DOCTOR: Gunner Zacarias Interpretating Date/Time 02/06/2017 08:57:08
== END 2017-02-05 09:21 | disposition home or self-care (01) ==
LOC: NEPE 04:13
DX: R10.84 Generalized abdominal pain (principal); R07.9 Chest pain, unspecified
CPT/HCPCS: 71010; 74177; 80053; 81001; 83690; 84484; 85025; 93005; 96374; 96375; 99285; J2270; J2405; Q9967

== ENCOUNTER → 2017-02-10 | Outpatient (CLI) | payer OTHER ==
[~2017-02-10] MED LIST changes: +COLA100C5 PO; +TYLE325T PO
[2017-02-10 13:08] LABS: BLOOD GAS BASE EXCESS -3.7 mmol/L (-2-2); BLOOD GAS CARBOXYHEMOGLOBIN 1.5 % (0-4); BLOOD GAS HCO3 20 mmol/L (22-26); BLOOD GAS METHEMOGLOBIN 1.1 % (0-2); BLOOD GAS O2 HGB SATURATION 94 % (90-100); BLOOD GAS OXYGEN CONTENT 17.8 Vol % (12.0-20.0); BLOOD GAS PCO2 33 mmHg (38-42); BLOOD GAS PO2 94 mmHg (61-120); BLOOD GAS TOTAL HGB 13.5 G/DL (12.0-16.0)
[2017-02-10 13:09] LABS: CRITICAL VALUE NO; DRAW SITE RT RADIAL; FIO2 21 %; NUMBER OF ARTERIAL PUNCTURES 1; STAT NO; ULNAR PULSE PRESENT
== END ==
LOC: HRSP 10:28
PROVIDERS: ATTEND Specialist
DX: R06.00 Dyspnea, unspecified (principal)
CPT/HCPCS: 36600; 82805; 94060; 94620; 94729

== ENCOUNTER 2017-02-22 15:49 | Emergency (ER) | payer OTHER ==
[~2017-02-22] VITALS: Ht 175.3 cm; Wt 80.0 kg
[2017-02-22 15:51] VITALS: BP 137/95; PULSE 109; RESP 20; TEMP 99; O2SAT 95
--- NOTE | 2017-02-22 16:21 | PD ---
HPI Chief Complaint: Chest Pain Time Seen by Provider: 16:05 Travel History International Travel<30 days: No Contact w/Intl Traveler<30days: No Traveled to known affect area: No History of Present Illness HPI 56-year-old male presents to the emergency department for evaluation of chest pain and abdominal pain. Patient states is been ongoing for over a month. Patient has been seen on multiple occasions for the same. Patient had negative stress test in December 16, 2016. His last visit was on February 05, 2017 where he is complaining of chest pain or abdominal pain as well. Patient did have recent umbilical and right inguinal hernia repair by Dr. Jung on January 25, 2017. The patient had CT abdomen/pelvis completed until February 05 which showed no acute CT abnormality in the abdomen or pelvis. The patient states that this is the same issue and he has not followed up outpatient. The patient screams and tries to pull my hand away even with gentle palpation to the chest and abdomen, but we'll also do it when I gently touch his arm. Severity is moderate. Palpation will exacerbate the pain. No alleviating factors. Patient does admit to drinking alcohol today. He states he drinks at least a 4 pack daily. PFSH Past Medical History Arthritis: Yes Heart Rhythm Problems: No Cancer: No Cardiac Catheterization: No Cardiovascular Problems: No High Cholesterol: Yes Congestive Heart Failure: No Diabetes: No Diminished Hearing: No Endocrine: No Genitourinary: No Hepatitis: No Hiatal Hernia: Yes Immune Disorder: No Inguinal Hernia: Yes Musculoskeletal: Yes (BACK PAIN HX) Neurologic: No Psychiatric: No Reproductive: No Respiratory: No Immunizations Current: Yes Thyroid Disease: No Past Surgical History Abdominal Surgery: No AICD: No Cardiac Surgery: No Coronary Artery Bypass Graft: No Ear Surgery: No Eye Surgery: No Genitourinary Surgery: No Gynecologic Surgery: No Joint Replacement: No Oral Surgery: No Pacemaker: No Thoracic Surgery: No Other Surgery: Yes (HERNIA ) Social History Alcohol Use: Yes (EVERY DAY) Tobacco Use: Yes Substance Use: No (PT DENIES) Allergies-Medications (Allergen,Severity, Reaction): Coded Allergies: No Known Allergies (Verified Adverse Reaction, Unknown, 02/22/17) Reported Meds & Prescriptions Reported Meds & Active Scripts Active Tylenol (Acetaminophen) 325 Mg Tab 650 Mg PO Q6H PRN Colace (Docusate Sodium) 100 Mg Capsule 1 Tab PO BID 10 Days Percocet (Oxycodone-Acetaminophen) 5-325 mg Tab 1 Tab PO Q6H PRN Reported Gabapentin 600 Mg Tab 600 Mg PO HS Tramadol (Tramadol HCl) 50 Mg Tab 50 Mg PO Q8H PRN Tizanidine (Tizanidine HCl) 4 Mg Tab 4 Mg PO HS Review of Systems Except as stated in HPI: all other systems reviewed are Neg Physical Exam Narrative GENERAL: Well-nourished, well-developed male patient, afebrile SKIN: Focused skin assessment warm/dry. HEAD: Normocephalic. Atraumatic. EYES: No scleral icterus. No injection or drainage. NECK: Supple, trachea midline. No JVD or lymphadenopathy. CARDIOVASCULAR: Regular rate and rhythm without murmurs, gallops, or rubs. Bilateral radial and pedal pulses are 2+ RESPIRATORY: Breath sounds equal bilaterally. No accessory muscle use. Lungs sounds are clear to auscultation. GASTROINTESTINAL: Abdomen soft and nondistended. MUSCULOSKELETAL: No cyanosis, or edema. Even with very gentle palpation of the chest and abdomen, the patient moans and pulls my hand away. BACK: Nontender without obvious deformity. No CVA tenderness. Data Data Last Documented VS Vital Signs Date Time Temp Pulse Resp B/P (MAP) Pulse Ox O2 Delivery O2 Flow Rate FiO2 02/22/17 18:59 91 18 95 Room Air 02/22/17 18:58 132/80 (97) 02/22/17 15:51 99.0 Orders Orders Electrocardiogram (02/22/17 16:16) Ckmb (Isoenzyme) Profile (02/22/17 16:16) Complete Blood Count With Diff (02/22/17 16:16) Comprehensive Metabolic Panel (02/22/17 16:16) D-Dimer (02/22/17 16:16) Magnesium (Mg) (02/22/17 16:16) Prothrombin Time / Inr (Pt) (02/22/17 16:16) Act Partial Throm Time (Ptt) (02/22/17 16:16) Troponin I (02/22/17 16:16) Lipase (02/22/17 16:16) Chest, Single Ap (02/22/17 16:16) Ecg Monitoring (02/22/17 16:16) Bilateral Bp Monitoring (02/22/17 16:16) Iv Access Insert/Monitor (02/22/17 16:16) Oximetry (02/22/17 16:16) Oxygen Administration (02/22/17 16:16) Sodium Chloride 0.9% Flush (Ns Flush) (02/22/17 16:30) Sodium Chlor 0.9% 1000 Ml Inj (Ns 1000 M (02/22/17 16:30) Ketorolac Inj (Toradol Inj) (02/22/17 16:30) Alcohol (Ethanol) (02/22/17 16:27) CKMB (02/22/17 16:40) CKMB% (02/22/17 16:40) Ct Pulmonary Angiogram (02/22/17 ) Iohexol 350 Inj (Omnipaque 350 Inj) (02/22/17 19:17) Ed Discharge Order (02/22/17 19:46) Labs Laboratory Tests Test 02/22/17 16:40 White Blood Count 4.2 TH/MM3 Red Blood Count 4.67 MIL/MM3 Hemoglobin 13.6 GM/DL Hematocrit 41.2 % Mean Corpuscular Volume 88.1 FL Mean Corpuscular Hemoglobin 29.2 PG Mean Corpuscular Hemoglobin Concent 33.1 % Red Cell Distribution Width 16.2 % Platelet Count 220 TH/MM3 Mean Platelet Volume 8.1 FL Neutrophils (%) (Auto) 44.2 % Lymphocytes (%) (Auto) 40.0 % Monocytes (%) (Auto) 13.8 % Eosinophils (%) (Auto) 1.0 % Basophils (%) (Auto) 1.0 % Neutrophils # (Auto) 1.8 TH/MM3 Lymphocytes # (Auto) 1.7 TH/MM3 Monocytes # (Auto) 0.6 TH/MM3 Eosinophils # (Auto) 0.0 TH/MM3 Basophils # (Auto) 0.0 TH/MM3 CBC Comment DIFF FINAL Differential Comment Prothrombin Time 9.6 SEC Prothromb Time International Ratio 0.9 RATIO Activated Partial Thromboplast Time 26.6 SEC D-Dimer Quantitative (PE/DVT) 7.20 MG/L FEU Blood Urea Nitrogen 8 MG/DL Creatinine 0.88 MG/DL Random Glucose 112 MG/DL Total Protein 8.0 GM/DL Albumin 3.5 GM/DL Calcium Level 8.7 MG/DL Magnesium Level 1.8 MG/DL Alkaline Phosphatase 98 U/L Aspartate Amino Transf (AST/SGOT) 44 U/L Alanine Aminotransferase (ALT/SGPT) 33 U/L Total Bilirubin 0.2 MG/DL Sodium Level 143 MEQ/L Potassium Level 3.6 MEQ/L Chloride Level 109 MEQ/L Carbon Dioxide Level 22.8 MEQ/L Anion Gap 11 MEQ/L Estimat Glomerular Filtration Rate 109 ML/MIN Total Creatine Kinase 355 U/L Creatine Kinase MB 11.8 NG/ML Creatine Kinase MB % 3.3 % Troponin I LESS THAN 0.02 NG/ML Lipase 390 U/L Ethyl Alcohol Level 422 MG/DL [facility] Medical Decision Making Medical Screen Exam Complete: Yes Emergency Medical Condition: Yes Medical Record Reviewed: Yes Interpretation(s) chest x-ray - CONCLUSION: Normal examination. CT PA - CONCLUSION: 1. The study is negative for pulmonary embolism. 2. Bilateral central bulla and scattered central lobular emphysema in the upper lungs. Differential Diagnosis Chronic chest and abdominal pain versus gastroenteritis versus atypical chest pain versus ACS Narrative Course 56-year-old male presents to the emergency department complaining of all over chest and abdominal pain has been ongoing for over a month. She was just seen here on February 05, 2017 and had workup with CT the abdomen/pelvis done at that time. No acute abnormality was found. Patient had negative stress test in December. EKG, CBC, CMP, CK, troponin, lipase, magnesium, PTT, PT/INR, d-dimer , chest x-ray ordered and pending. Patient is given normal saline 1 L IV bolus , Toradol 30 mg IV. EKG shows sinus rhythm, heart rate 96, no acute ST changes. CBC shows no acute abnormality. CMP shows no acute abnormality. Lipase is 390. Magnesium is 1.8. CK is 355. Troponin is less than 0.02. Coags show no acute abnormality. D-dimer is 7.20. Alcohol level is 422. Chest x-ray is normal. CT pulmonary angiogram is ordered and shows the study is negative for pulmonary embolism; Bilateral central bulla and scattered central lobular emphysema in the upper lungs. Patient is stable for discharge home. Patient does not have a ride home and his alcohol level is 422. He will be allowed to rest in the emergency department until he demonstrates He is Instructed to follow primary care physician. He verbalizes agreement and understanding. The patient was discharged in stable condition with instructions, including return instructions and follow up instructions. Diagnosis Primary Impression: Abdominal pain Qualified Codes: R10.84 - Generalized abdominal pain Additional Impressions: Chest pain, atypical Alcohol intoxication Qualified Codes: F10.920 - Alcohol use, unspecified with intoxication, uncomplicated Referrals: Primary Care Physician call for appointment Patient Instructions: Abdominal Pain (ED), Chest Wall Pain (ED), General Instructions Additional Instructions: Follow-up with your primary care physician. Return to the emergency department for any acute worsening of symptoms. Med/Other Pt SpecificInfo: No Change to Meds Disposition: 01 DISCHARGE HOME Condition: Stable Angel,Ines MONTIEL Feb 22, 2017 16:21
[2017-02-22] MEDS ORDERED: KETOROLAC TROMETHAMINE 30 MG/ML (IVP) VIAL IV PUSH ONE (16:30)
[2017-02-22] MEDS ORDERED: SODIUM CHLOR 0.9% 1000 ML INJ 1,000 ML IV ONE (16:30)
[2017-02-22] MEDS ORDERED: SODIUM CHLORIDE 0.9% FLUSH 10 ML FLUSH IVF PRN (16:30)
--- NOTE | 2017-02-22 16:42 | RADRPT ---
EXAM DATE/TIME: 02/22/2017 16:35 [facility] COMPARISON: CHEST SINGLE AP, February 05, 2017, 5:47. INDICATIONS : Chest pain. MEDICAL HISTORY : None. SURGICAL HISTORY : None. ENCOUNTER: Initial ACUITY: 1 day PAIN SCORE: 10/10 LOCATION: middle chest. FINDINGS: A single view of the chest demonstrates the lungs to be symmetrically aerated without evidence of mas s, infiltrate or effusion. The cardiomediastinal contours are unremarkable. Osseous structures are intact. CONCLUSION: Normal examination. Isaac Wild MD on February 22, 2017 at 16:40 Board Certified Radiologist. This report was verified electronically.
[2017-02-22 16:58] VITALS: BP_SYST 142; BP_SYST 154; BP_DIAS 67; BP_DIAS 69; PULSE 86; RESP 18; O2SAT 96; O2SAT 97
[2017-02-22 17:06] LABS: AUTOMATED NEUTROPHIL # 1.8 TH/MM3 (1.8-7.7); HEMATOCRIT 41.2 % (39.0-51.0); HEMO FLAGS DIFF FINAL; LYMPHOCYTE # 1.7 TH/MM3 (1.0-4.8); MEAN CELL VOLUME 88.1 FL (80.0-100.0); MEAN CORPUSCULAR HEMOGLOBIN 29.2 PG (27.0-34.0); MEAN CORPUSCULAR HGB CONC 33.1 % (32.0-36.0); MONO % 13.8 % (0.0-8.0); NEUT % 44.2 % (16.0-70.0); PLATELET COUNT 220 TH/MM3 (150-450); RED BLOOD COUNT 4.67 MIL/MM3 (4.50-5.90); RED CELL DISTRIBUTION WIDTH 16.2 % (11.6-17.2); WHITE BLOOD COUNT 4.2 TH/MM3 (4.0-11.0)
[2017-02-22 17:30] LABS: APTT (PATIENT) 26.6 SEC (24.3-30.1); INTERNATIONAL NORMALIZED RATIO 0.9 RATIO; PROTHROMBIN TIME - PATIENT 9.6 SEC (9.8-11.6)
[2017-02-22 17:32] LABS: ANION GAP 11 MEQ/L (5-15); AST (GOT) 44 U/L (15-37); BICARBONATE 22.8 MEQ/L (21.0-32.0); BLOOD UREA NITROGEN 8 MG/DL (7-18); CHLORIDE 109 MEQ/L (98-107); GLOMERULAR FILTRATION RATE 109 ML/MIN (>89); MAGNESIUM 1.8 MG/DL (1.5-2.5); POTASSIUM 3.6 MEQ/L (3.5-5.1); SODIUM (NA) 143 MEQ/L (136-145)
[2017-02-22 17:33] LABS: ALT (GPT) 33 U/L (12-78)
[2017-02-22 17:36] LABS: ALKALINE PHOSPHATASE 98 U/L (45-117); CREATINE KINASE 355 U/L (39-308); TOTAL BILIRUBIN ADULT 0.2 MG/DL (0.2-1.0)
[2017-02-22 17:49] LABS: CKMB 11.8 NG/ML (0.5-3.6)
[2017-02-22 18:58] VITALS: BP 132/80; PULSE 87; RESP 18; O2SAT 95
[2017-02-22] MEDS ORDERED: IOHEXOL 350 MG/ML 10 ML VIAL (for RAD DIAG) IVCONTRAST ONE (19:17)
--- NOTE | 2017-02-22 19:36 | RADRPT ---
EXAM DATE/TIME: 02/22/2017 19:09 [facility] COMPARISON: No previous studies available for comparison. INDICATIONS : Mid-sternal chest pain with elevated D-Dimer. IV CONTRAST: 75 cc Omnipaque 350 (iohexol) IV RADIATION DOSE: 23.14 CTDIvol (mGy) MEDICAL HISTORY : Hypertension. Pulmonary embolism. SURGICAL HISTORY : None. ENCOUNTER: Initial ACUITY: 1 day PAIN SCALE: 8/10 LOCATION: chest TECHNIQUE: Volumetric scanning of the chest was performed using a pulmonary embolism protocol MIP images were re constructed. Using automated exposure control and adjustment of the mA and/or kV according to patien t size, radiation dose was kept as low as reasonably achievable to obtain optimal diagnostic quality images. DICOM format image data is available electronically for review and comparison. Follow-up recommendations for detected pulmonary nodules are based at a minimum on nodule size and pa tient risk factors according to Fleischner Society Guidelines. FINDINGS: PULMONARY ARTERIES: No filling defects are seen in the pulmonary arteries through the segmental level. LUNGS: There is no consolidation or pneumothorax . No concerning pulmonary nodule is visualized. There are multiple bilateral central bolus in both lungs measuring up to 3.3 cm and there are multiple small s accular areas in the upper lungs characteristic of centrilobular emphysema. PLEURAE: There is no pleural thickening or pleural effusion. MEDIASTINUM: There is good visualization of the great vessels of the middle mediastinum. No evidence of mediastin al or hilar adenopathy/mass. CONCLUSION: 1. The study is negative for pulmonary embolism. 2. Bilateral central bulla and scattered central lobular emphysema in the upper lungs. Simone Rogers MD on February 22, 2017 at 19:32 Board Certified Radiologist. This report was verified electronically.
--- NOTE | 2017-02-23 09:49 | EKG ---
Date Performed: 02/22/2017 Time Performed: 16:50:49 PTAGE: 56 years EKG: Sinus rhythm NORMAL ECG PREVIOUS TRACING : 02/05/2017 05.43 DOCTOR: Isaac Esquivel Interpretating Date/Time 02/23/2017 09:47:46
== END 2017-02-23 01:56 | disposition home or self-care (01) ==
LOC: NEPE 15:49
DX: R10.84 Generalized abdominal pain (principal); R07.89 Other chest pain; F10.129 Alcohol abuse with intoxication, unspecified; M19.90 Unspecified osteoarthritis, unspecified site; E78.00 Pure hypercholesterolemia, unspecified; Z79.899 Other long term (current) drug therapy; Z72.0 Tobacco use
CPT/HCPCS: 71010; 71275; 80053; 80307; 82550; 82552; 83690; 83735; 84484; 85025; 85379; 85610; 85730; 93005; 96361; 96374; 99285; J1885; J7030; Q9967

== ENCOUNTER 2017-02-27 14:56 | Emergency (ER) | payer OTHER ==
[~2017-02-27] VITALS: Ht 205.7 cm; Wt 80.0 kg
[2017-02-27 14:58] VITALS: BP 157/96; PULSE 109; RESP 20; TEMP 98.3; O2SAT 96
--- NOTE | 2017-02-27 15:47 | PD ---
HPI Chief Complaint: Chest Pain Time Seen by Provider: 15:47 Travel History International Travel<30 days: No Contact w/Intl Traveler<30days: No Traveled to known affect area: No History of Present Illness HPI 56-year-old male presents to emergency department for evaluation of abdominal and chest pain 3 days. Patient has been here several times for this and evaluated with negative chest pain workup. Patient cannot specify the pain, the onset, or it's quality. He states he has not been recently ill. Patient denies nausea vomiting. States he has been drinking alcohol today. Patient has no other symptoms to report. PFSH Past Medical History Arthritis: Yes Heart Rhythm Problems: No Cancer: No Cardiac Catheterization: No Cardiovascular Problems: No High Cholesterol: Yes Congestive Heart Failure: No Diabetes: No Diminished Hearing: No Endocrine: No Gastrointestinal Disorders: No Genitourinary: No Hepatitis: No Hiatal Hernia: Yes Heparin Induced Thrombocytopen: No Hypertension: No Immune Disorder: No Inguinal Hernia: Yes Musculoskeletal: Yes (BACK PAIN HX) Neurologic: No Psychiatric: No Reproductive: No Respiratory: No Immunizations Current: Yes Thyroid Disease: No Past Surgical History Abdominal Surgery: No AICD: No Cardiac Surgery: No Coronary Artery Bypass Graft: No Ear Surgery: No Eye Surgery: No Genitourinary Surgery: No Gynecologic Surgery: No Joint Replacement: No Neurologic Surgery: No Oral Surgery: No Pacemaker: No Thoracic Surgery: No Other Surgery: Yes (HERNIA ) Family History Family Myocardial Infarction: Yes Social History Alcohol Use: Yes (EVERY DAY) Tobacco Use: No Substance Use: No (PT DENIES) Allergies-Medications (Allergen,Severity, Reaction): Coded Allergies: No Known Allergies (Verified Adverse Reaction, Unknown, 02/22/17) Reported Meds & Prescriptions Reported Meds & Active Scripts Active Review of Systems Except as stated in HPI: all other systems reviewed are Neg Physical Exam Narrative GENERAL: Well-nourished male patient, lying in bed in no acute distress SKIN: Focused skin assessment warm/dry. HEAD: Atraumatic. Normocephalic. EYES: Pupils equal and round. No scleral icterus. No injection or drainage. ENT: No nasal bleeding or discharge. Mucous membranes pink and moist. NECK: Trachea midline. No JVD. CARDIOVASCULAR: Tachycardic rate and rhythm. No murmur appreciated. RESPIRATORY: No accessory muscle use. Clear to auscultation. Breath sounds equal bilaterally. GASTROINTESTINAL: Abdomen soft nondistended. Inconsistently tender. MUSCULOSKELETAL: No obvious deformities. No clubbing. No cyanosis. No edema. NEUROLOGICAL: Awake and alert. No obvious cranial nerve deficits. Motor grossly within normal limits. Normal speech. Data Data Last Documented VS Vital Signs Date Time Temp Pulse Resp B/P (MAP) Pulse Ox O2 Delivery O2 Flow Rate FiO2 02/27/17 17:25 72 18 147/78 (101) 99 Room Air 02/27/17 14:58 98.3 Orders Orders Ketorolac Inj (Toradol Inj) (02/27/17 16:15) Sodium Chlorid 0.9% 500 Ml Inj (Ns 500 M (02/27/17 16:15) Iv Access Insert/Monitor (02/27/17 16:14) Complete Blood Count With Diff (02/27/17 16:14) Comprehensive Metabolic Panel (02/27/17 16:14) Lipase (02/27/17 16:14) Electrocardiogram (02/27/17 15:48) Ed Discharge Order (02/27/17 17:22) Labs Laboratory Tests Test 02/27/17 16:30 White Blood Count 3.8 TH/MM3 Red Blood Count 4.76 MIL/MM3 Hemoglobin 14.0 GM/DL Hematocrit 41.5 % Mean Corpuscular Volume 87.2 FL Mean Corpuscular Hemoglobin 29.4 PG Mean Corpuscular Hemoglobin Concent 33.7 % Red Cell Distribution Width 16.5 % Platelet Count 136 TH/MM3 Mean Platelet Volume 8.9 FL Neutrophils (%) (Auto) 48.7 % Lymphocytes (%) (Auto) 40.2 % Monocytes (%) (Auto) 9.4 % Eosinophils (%) (Auto) 0.4 % Basophils (%) (Auto) 1.3 % Neutrophils # (Auto) 1.8 TH/MM3 Lymphocytes # (Auto) 1.5 TH/MM3 Monocytes # (Auto) 0.4 TH/MM3 Eosinophils # (Auto) 0.0 TH/MM3 Basophils # (Auto) 0.0 TH/MM3 CBC Comment DIFF FINAL Differential Comment Blood Urea Nitrogen 9 MG/DL Creatinine 0.85 MG/DL Random Glucose 87 MG/DL Total Protein 8.2 GM/DL Albumin 3.9 GM/DL Calcium Level 8.5 MG/DL Alkaline Phosphatase 108 U/L Aspartate Amino Transf (AST/SGOT) 61 U/L Alanine Aminotransferase (ALT/SGPT) 57 U/L Total Bilirubin 0.2 MG/DL Sodium Level 138 MEQ/L Potassium Level 4.0 MEQ/L Chloride Level 103 MEQ/L Carbon Dioxide Level 25.2 MEQ/L Anion Gap 10 MEQ/L Estimat Glomerular Filtration Rate 113 ML/MIN Lipase 376 U/L MDM Medical Decision Making Medical Screen Exam Complete: Yes Emergency Medical Condition: Yes Medical Record Reviewed: Yes Differential Diagnosis Abdominal pain chronic versus acute versus gastroparesis versus gastritis versus chest wall pain versus malingering Narrative Course 56-year-old male presents to emergency department for evaluation of abdominal and chest pain. Patient appears without distress. He does not own any time you touch him anywhere on his body. This is consistent with previous assessments. I will repeat lab work to ensure there is no acute change since his most previous workup. Laboratory Tests Test 02/27/17 16:30 White Blood Count 3.8 TH/MM3 Red Blood Count 4.76 MIL/MM3 Hemoglobin 14.0 GM/DL Hematocrit 41.5 % Mean Corpuscular Volume 87.2 FL Mean Corpuscular Hemoglobin 29.4 PG Mean Corpuscular Hemoglobin Concent 33.7 % Red Cell Distribution Width 16.5 % Platelet Count 136 TH/MM3 Mean Platelet Volume 8.9 FL Neutrophils (%) (Auto) 48.7 % Lymphocytes (%) (Auto) 40.2 % Monocytes (%) (Auto) 9.4 % Eosinophils (%) (Auto) 0.4 % Basophils (%) (Auto) 1.3 % Neutrophils # (Auto) 1.8 TH/MM3 Lymphocytes # (Auto) 1.5 TH/MM3 Monocytes # (Auto) 0.4 TH/MM3 Eosinophils # (Auto) 0.0 TH/MM3 Basophils # (Auto) 0.0 TH/MM3 CBC Comment DIFF FINAL Differential Comment Blood Urea Nitrogen 9 MG/DL Creatinine 0.85 MG/DL Random Glucose 87 MG/DL Total Protein 8.2 GM/DL Albumin 3.9 GM/DL Calcium Level 8.5 MG/DL Alkaline Phosphatase 108 U/L Aspartate Amino Transf (AST/SGOT) 61 U/L Alanine Aminotransferase (ALT/SGPT) 57 U/L Total Bilirubin 0.2 MG/DL Sodium Level 138 MEQ/L Potassium Level 4.0 MEQ/L Chloride Level 103 MEQ/L Carbon Dioxide Level 25.2 MEQ/L Anion Gap 10 MEQ/L Estimat Glomerular Filtration Rate 113 ML/MIN Lipase 376 U/L Labs are reviewed and discussed with my attending. Patient will be discharged home to follow with primary care provider. He is counseled on alcohol use. He agrees to return immediately with any acute worsening of symptoms Diagnosis Primary Impression: Abdominal pain Qualified Codes: R10.84 - Generalized abdominal pain Additional Impressions: Alcohol abuse Chest pain, atypical Referrals: [facility] (Out patient) Primary Care Physician Patient Instructions: Abdominal Pain (ED), Abuse of Alcohol (ED), General Instructions Additional Instructions: Stop drinking alcohol Follow-up with your general surgeon Follow-up the primary care provider Return immediately with any acute worsening of symptoms Med/Other Pt SpecificInfo: No Change to Meds Disposition: 01 DISCHARGE HOME Condition: Stable Sarah Rivera Feb 27, 2017 15:47
[2017-02-27] MEDS ORDERED: SODIUM CHLORID 0.9% 500 ML INJ 500 ML IV ONE (16:15)
[2017-02-27] MEDS ORDERED: KETOROLAC TROMETHAMINE 30 MG/ML (IVP) VIAL IV PUSH ONE (16:15)
[2017-02-27 16:42] LABS: AUTOMATED NEUTROPHIL # 1.8 TH/MM3 (1.8-7.7); BASOPHIL % 1.3 % (0.0-2.0); EOSINOPHIL % 0.4 % (0.0-4.0); HEMATOCRIT 41.5 % (39.0-51.0); HEMO FLAGS DIFF FINAL; LYMPH % 40.2 % (9.0-44.0); LYMPHOCYTE # 1.5 TH/MM3 (1.0-4.8); MEAN CELL VOLUME 87.2 FL (80.0-100.0); MEAN CORPUSCULAR HEMOGLOBIN 29.4 PG (27.0-34.0); MEAN CORPUSCULAR HGB CONC 33.7 % (32.0-36.0); MONO % 9.4 % (0.0-8.0); NEUT % 48.7 % (16.0-70.0); PLATELET COUNT 136 TH/MM3 (150-450); RED BLOOD COUNT 4.76 MIL/MM3 (4.50-5.90); RED CELL DISTRIBUTION WIDTH 16.5 % (11.6-17.2); WHITE BLOOD COUNT 3.8 TH/MM3 (4.0-11.0)
[2017-02-27 17:07] LABS: ALT (GPT) 57 U/L (12-78); ANION GAP 10 MEQ/L (5-15); AST (GOT) 61 U/L (15-37); BICARBONATE 25.2 MEQ/L (21.0-32.0); BLOOD UREA NITROGEN 9 MG/DL (7-18); CHLORIDE 103 MEQ/L (98-107); GLOMERULAR FILTRATION RATE 113 ML/MIN (>89); SODIUM (NA) 138 MEQ/L (136-145)
[2017-02-27 17:09] LABS: ALKALINE PHOSPHATASE 108 U/L (45-117); TOTAL BILIRUBIN ADULT 0.2 MG/DL (0.2-1.0)
[2017-02-27 17:25] VITALS: BP 147/78; PULSE 72; RESP 18; O2SAT 99
--- NOTE | 2017-02-27 20:48 | EKG ---
Date Performed: 02/27/2017 Time Performed: 15:48:41 PTAGE: 56 years EKG: Sinus rhythm NORMAL ECG PREVIOUS TRACING : 02/22/2017 16.50 No significant change from previous tracing noted. DOCTOR: Temo Perez Interpretating Date/Time 02/27/2017 20:47:08
== END 2017-02-27 17:37 | disposition home or self-care (01) ==
LOC: NEPE 14:56
DX: R10.84 Generalized abdominal pain (principal); F10.10 Alcohol abuse, uncomplicated; R07.9 Chest pain, unspecified; E78.00 Pure hypercholesterolemia, unspecified; M19.90 Unspecified osteoarthritis, unspecified site
CPT/HCPCS: 80053; 83690; 85025; 93005; 96374; 99284; J1885; J7040

== ENCOUNTER 2017-03-06 16:23 | Emergency (ER) | payer OTHER ==
[~2017-03-06] VITALS: Ht 175.3 cm; Wt 80.0 kg
[2017-03-06 16:25] VITALS: BP 163/96; PULSE 110; RESP 22; TEMP 99.5; O2SAT 97
[2017-03-06 17:39] LABS: AUTOMATED NEUTROPHIL # 1.7 TH/MM3 (1.8-7.7); BASOPHIL % 0.9 % (0.0-2.0); BLOOD, URINE MOD (NEG); EOSINOPHIL % 0.6 % (0.0-4.0); GLUCOSE,URINE NEG (NEG); GRANULAR CAST, URINE 1 /lpf; HEMATOCRIT 38.9 % (39.0-51.0); KETONE, URINE NEG (NEG); LYMPH % 26.9 % (9.0-44.0); LYMPHOCYTE # 0.8 TH/MM3 (1.0-4.8); MEAN CELL VOLUME 88.3 FL (80.0-100.0); MEAN CORPUSCULAR HEMOGLOBIN 29.4 PG (27.0-34.0); MEAN CORPUSCULAR HGB CONC 33.3 % (32.0-36.0); MONO % 14.8 % (0.0-8.0); MUCUS URINE FEW /lpf (OCC); NEUT % 56.8 % (16.0-70.0); NITRITE,URINE NEG (NEG); RED CELL DISTRIBUTION WIDTH 16.5 % (11.6-17.2); URINE COLOR YELLOW (YELLW/STRAW); WHITE BLOOD COUNT 2.9 TH/MM3 (4.0-11.0)
[2017-03-06 17:40] LABS: HEMO FLAGS AUTO DIFF
[2017-03-06 17:41] LABS: COMMENT (UR) CULT NOT INDICATED; CULTURE IF INDICATED CULT NOT INDICATED
[2017-03-06 17:57] LABS: ALT (GPT) 64 U/L (12-78); ANION GAP 8 MEQ/L (5-15); AST (GOT) 95 U/L (15-37); BICARBONATE 28.5 MEQ/L (21.0-32.0); BLOOD UREA NITROGEN 7 MG/DL (7-18); CHLORIDE 106 MEQ/L (98-107); GLOMERULAR FILTRATION RATE 120 ML/MIN (>89); SODIUM (NA) 142 MEQ/L (136-145)
[2017-03-06 18:00] LABS: ALKALINE PHOSPHATASE 269 U/L (45-117); TOTAL BILIRUBIN ADULT 0.2 MG/DL (0.2-1.0)
[2017-03-06] MEDS ORDERED: MORPHINE SULFATE 8 MG/ML INJ IV PUSH ONE (18:00)
[2017-03-06] MEDS ORDERED: SODIUM CHLORID 0.9% 500 ML INJ 500 ML IV ONE (18:00)
--- NOTE | 2017-03-06 18:00 | PD ---
HPI Chief Complaint: Abdominal Pain Time Seen by Provider: 17:43 Travel History International Travel<30 days: No Contact w/Intl Traveler<30days: No Traveled to known affect area: No History of Present Illness HPI 56 year old male presents to the ER for evaluation of abdominal pain. This is his 4th evaluation in the past 30 days for the same. He has a history of right inguinal hernia repair. On my arrival to the room the patient states to nursing that he is seeing a shadow on the wall which we do not see. Patient states he does not know his previous diagnoses from the previous visits to the ER. his pain is periumbilical, radiating to the RLQ, no associated n/v/d/c or blood in the stool. He is a limited historian as he appears to be interacting with unseen stimuli in the room. Nursing spoke with the patient's family who states that he has not been taking his psychiatric medicine because he thinks making him worse. PFSH Past Medical History Arthritis: Yes Bipolar Disorder: Yes Depression: Yes Heart Rhythm Problems: No Cancer: No Cardiac Catheterization: No Cardiovascular Problems: No High Cholesterol: Yes Congestive Heart Failure: No Diabetes: No Diminished Hearing: No Endocrine: No Gastrointestinal Disorders: No Genitourinary: No Hepatitis: No Hiatal Hernia: Yes Heparin Induced Thrombocytopen: No Hypertension: No Immune Disorder: No Inguinal Hernia: Yes Musculoskeletal: Yes (BACK PAIN HX) Neurologic: No Psychiatric: Yes (BIPOLAR SChizopyhrenia) Reproductive: No Respiratory: No Immunizations Current: Yes Thyroid Disease: No Tetanus Vaccination: < 5 Years Past Surgical History Abdominal Surgery: No AICD: No Cardiac Surgery: No Coronary Artery Bypass Graft: No Ear Surgery: No Eye Surgery: No Genitourinary Surgery: No Gynecologic Surgery: No Joint Replacement: No Neurologic Surgery: No Oral Surgery: No Pacemaker: No Thoracic Surgery: No Other Surgery: Yes (HERNIA ) Family History Family Myocardial Infarction: Yes Social History Alcohol Use: Yes (EVERY DAY) Tobacco Use: No Substance Use: No (PT DENIES) Allergies-Medications (Allergen,Severity, Reaction): Coded Allergies: No Known Allergies (Verified Adverse Reaction, Unknown, 03/06/17) Reported Meds & Prescriptions Reported Meds & Active Scripts Active No Active Prescriptions or Reported Medications Review of Systems Except as stated in HPI: all other systems reviewed are Neg Physical Exam Narrative GENERAL: Well-developed well-nourished, no obvious distress. SKIN: Focused skin assessment warm/dry. HEAD: Atraumatic. Normocephalic. EYES: Pupils equal and round. No scleral icterus. No injection or drainage. ENT: No nasal bleeding or discharge. Mucous membranes pink and moist. NECK: Trachea midline. No JVD. CARDIOVASCULAR: Regular rate and rhythm. No murmur appreciated. RESPIRATORY: No accessory muscle use. Clear to auscultation. Breath sounds equal bilaterally. GASTROINTESTINAL: Abdomen soft, moderately tender periumbilically, there is no guarding no peritoneal signs or rebound no percussion tenderness,., nondistended. Hepatic and splenic margins not palpable. All umbilical hernia felt, soft but minimally tender.. MUSCULOSKELETAL: No obvious deformities. No clubbing. No cyanosis. No edema. NEUROLOGICAL: Awake and alert. No obvious cranial nerve deficits. Motor grossly within normal limits. Normal speech. PSYCHIATRIC: Appropriate mood and affect; insight and judgment normal. Data Data Last Documented VS Vital Signs Date Time Temp Pulse Resp B/P (MAP) Pulse Ox O2 Delivery O2 Flow Rate FiO2 03/07/17 00:24 03/06/17 17:49 16 03/06/17 16:25 99.5 110 97 Room Air Orders Orders Complete Blood Count With Diff (03/06/17 16:47) Comprehensive Metabolic Panel (03/06/17 16:47) Urinalysis - C+S If Indicated (03/06/17 16:47) Lipase (03/06/17 16:47) Morphine Inj (Morphine Inj) (03/06/17 18:00) Sodium Chlorid 0.9% 500 Ml Inj (Ns 500 M (03/06/17 18:00) Drug Screen, Random Urine (03/06/17 18:18) Alcohol (Ethanol) (03/06/17 18:18) Complete Blood Count With Diff (03/06/17 19:27) Ct Abd/Pel W Iv Contrast(Rout) (03/06/17 ) Iohexol 350 Inj (Omnipaque 350 Inj) (03/06/17 19:49) Psych Screen (03/06/17 20:30) Ed Discharge Order (03/07/17 00:02) Labs Laboratory Tests Test 03/06/17 16:57 03/06/17 19:40 White Blood Count 2.9 TH/MM3 2.4 TH/MM3 Red Blood Count 4.40 MIL/MM3 4.14 MIL/MM3 Hemoglobin 12.9 GM/DL 12.0 GM/DL Hematocrit 38.9 % 36.1 % Mean Corpuscular Volume 88.3 FL 87.2 FL Mean Corpuscular Hemoglobin 29.4 PG 28.9 PG Mean Corpuscular Hemoglobin Concent 33.3 % 33.2 % Red Cell Distribution Width 16.5 % 16.5 % Platelet Count TH/MM3 99 TH/MM3 Mean Platelet Volume 9.4 FL 9.6 FL Neutrophils (%) (Auto) 56.8 % 53.3 % Lymphocytes (%) (Auto) 26.9 % 34.3 % Monocytes (%) (Auto) 14.8 % 11.4 % Eosinophils (%) (Auto) 0.6 % 0.4 % Basophils (%) (Auto) 0.9 % 0.6 % Neutrophils # (Auto) 1.7 TH/MM3 1.6 TH/MM3 Lymphocytes # (Auto) 0.8 TH/MM3 1.0 TH/MM3 Monocytes # (Auto) 0.4 TH/MM3 0.3 TH/MM3 Eosinophils # (Auto) 0.0 TH/MM3 0.0 TH/MM3 Basophils # (Auto) 0.0 TH/MM3 0.0 TH/MM3 CBC Comment AUTO DIFF AUTO DIFF Differential Comment AUTO DIFF CONFIRMED AUTO DIFF CONFIRMED Platelet Estimate NORMAL LOW Platelet Morphology Comment CLUMPED NORMAL Urine Color YELLOW Urine Turbidity CLEAR Urine pH 5.0 Urine Specific Steger 1.021 Urine Protein 30 mg/dL Urine Glucose (UA) NEG mg/dL Urine Ketones NEG mg/dL Urine Occult Blood MOD Urine Nitrite NEG Urine Bilirubin NEG Urine Urobilinogen LESS THAN 2.0 MG/DL Urine Leukocyte Esterase NEG Urine RBC 1 /hpf Urine WBC LESS THAN 1 /hpf Urine Granular Casts 1 /lpf Urine Mucus FEW /lpf Microscopic Urinalysis Comment CULT NOT INDICATED Blood Urea Nitrogen 7 MG/DL Creatinine 0.81 MG/DL Random Glucose 101 MG/DL Total Protein 8.2 GM/DL Albumin 3.8 GM/DL Calcium Level 8.3 MG/DL Alkaline Phosphatase 269 U/L Aspartate Amino Transf (AST/SGOT) 95 U/L Alanine Aminotransferase (ALT/SGPT) 64 U/L Total Bilirubin 0.2 MG/DL Sodium Level 142 MEQ/L Potassium Level 4.0 MEQ/L Chloride Level 106 MEQ/L Carbon Dioxide Level 28.5 MEQ/L Anion Gap 8 MEQ/L Estimat Glomerular Filtration Rate 120 ML/MIN Lipase 425 U/L Urine Opiates Screen NEG Urine Barbiturates Screen NEG Urine Amphetamines Screen NEG Urine Benzodiazepines Screen NEG Urine Cocaine Screen NEG Urine Cannabinoids Screen NEG Ethyl Alcohol Level 288 MG/DL MDM Medical Decision Making Medical Screen Exam Complete: Yes Emergency Medical Condition: Yes Differential Diagnosis Psychosis, abdominal pain, intractable inguinal hernia, entrapped umbilical hernia, acute abdomen, substance abuse, alcohol intoxication. Narrative Course Patient roomed in the emergency department, certainly bizarre behaving individual and turns out to have an alcohol level of 288. Given his symptoms the CAT scan is indicated the patient did have one last month. Shows the following results: Last 24 hours Impressions Abdomen/Pelvis CT 03/06/17 0000 Signed Impressions: Service Date/Time: Monday, March 06, 2017 19:52 - CONCLUSION: 1. Mild scarring/induration in the region of right inguinal hernia repair. No recurrent defect or fluid collection demonstrated. 2. Fat-containing umbilical and left inguinal hernia repairs are unchanged. 3. Fatty infiltration of the liver is considerably worse in the interim. 4. Calcification of the pancreatic head again seen, typically related to chronic pancreatitis. No acute inflammatory changes are demonstrated. 5. Unchanged simple, benign left renal cyst. 6. Enlarged prostate again noted. Yohannes Mendiola MD Patient's white blood cell count is 2.6 he's not had any fevers in the emergency department. We'll continue to monitor in the emergency department for clinical sobriety and then reassess to see if patient meets Alvarez act criteria or not. At midnight the patient has been observed for nearly 7 hours in the emergency department, clinically sober at this time I estimated his alcohol level just below 80. He states he still having some discomfort present abdominal exam is benign. Discussed with him the results of his CAT scan and blood workup, discussed need follow-up with a primary care physician or rivet tosser further workup. He states that he's had problems with shows all of his life, does not appear to be gravely disabled denies any suicidal homicidal ideation. Therefore there is no indication to hold him here for involuntary psychiatric evaluation. He is stable for discharge. He ambulated From the emergency department in no distress. Diagnosis Primary Impression: Abdominal pain Qualified Codes: R10.84 - Generalized abdominal pain Additional Impression: Alcohol intoxication delirium Referrals: [facility] Behavioral Scripts No Active Prescriptions or Reported Meds Disposition: 01 DISCHARGE HOME Condition: Stable Callum Alarcon MD Mar 06, 2017 18:00
[2017-03-06 18:31] LABS: PLATELET ESTIMATE SMEAR NORMAL (NORMAL)
[2017-03-06 18:32] LABS: PLATELET MORPHOLOGY CLUMPED (NORMAL)
[2017-03-06 18:33] LABS: SCAN/DIFF AUTO DIFF CONFIRMED
[2017-03-06] MEDS ORDERED: IOHEXOL 350 MG/ML 10 ML VIAL (for RAD DIAG) IVCONTRAST ONE (19:49)
--- NOTE | 2017-03-06 20:09 | RADRPT ---
EXAM DATE/TIME: 03/06/2017 19:52 [facility] COMPARISON: CT ABDOMEN & PELVIS W CONTRAST, February 05, 2017, 6:45. INDICATIONS : Right lower quadrant pain one month post hernia repair. IV CONTRAST: 94 cc Omnipaque 350 (iohexol) IV ORAL CONTRAST: No oral contrast ingested. RADIATION DOSE: 13.69 CTDIvol (mGy) MEDICAL HISTORY : Hernia, hiatal. Hernia, inguinal. SURGICAL HISTORY : hernia repair ENCOUNTER: Initial ACUITY: 1 day PAIN SCALE: 7/10 LOCATION: Right lower quadrant abdomen TECHNIQUE: Volumetric scanning of the abdomen and pelvis was performed. Using automated exposure control and ad justment of the mA and/or kV according to patient size, radiation dose was kept as low as reasonably achievable to obtain optimal diagnostic quality images. DICOM format image data is available electro nically for review and comparison. FINDINGS: Liver is severely fatty infiltrated, worse than before. No focal hepatic lesion. No intrahepatic lowe r distention. CT appearance of the gallbladder within normal limits Spleen normal. Parenchymal calcification of the pancreatic head again noted. No acute inflammatory changes are demon strated. Adrenal glands and right kidney are normal. Unchanged 7 x 12 mm benign cyst of the left mid zone. No obstruction or acute inflammatory changes are seen of the gastrointestinal tract. Nonspecific enlargement of the prostate. Changes of right inguinal hernia repair noted. No recurrent defect demonstrated. There is mild scarri ng/induration without mass or fluid collection. Unchanged fat containing inguinal hernia on the left. Fat-containing umbilical hernia unchanged, continues to appear mildly indurated. Emphysema and trace atelectasis seen of the lung bases. CONCLUSION: 1. Mild scarring/induration in the region of right inguinal hernia repair. No recurrent defect or flu id collection demonstrated. 2. Fat-containing umbilical and left inguinal hernia repairs are unchanged. 3. Fatty infiltration of the liver is considerably worse in the interim. 4. Calcification of the pancreatic head again seen, typically related to chronic pancreatitis. No acu te inflammatory changes are demonstrated. 5. Unchanged simple, benign left renal cyst. 6. Enlarged prostate again noted. Yohannes Mendiola MD on March 06, 2017 at 20:02 Board Certified Radiologist. This report was verified electronically.
[2017-03-06 20:31] LABS: AUTOMATED NEUTROPHIL # 1.6 TH/MM3 (1.8-7.7); BASOPHIL % 0.6 % (0.0-2.0); EOSINOPHIL % 0.4 % (0.0-4.0); HEMATOCRIT 36.1 % (39.0-51.0); LYMPH % 34.3 % (9.0-44.0); MEAN CELL VOLUME 87.2 FL (80.0-100.0); MEAN CORPUSCULAR HEMOGLOBIN 28.9 PG (27.0-34.0); MEAN CORPUSCULAR HGB CONC 33.2 % (32.0-36.0); MONO % 11.4 % (0.0-8.0); NEUT % 53.3 % (16.0-70.0); RED BLOOD COUNT 4.14 MIL/MM3 (4.50-5.90); RED CELL DISTRIBUTION WIDTH 16.5 % (11.6-17.2)
[2017-03-06 22:02] LABS: HEMO FLAGS AUTO DIFF
[2017-03-06 22:03] LABS: PLATELET COUNT 99 TH/MM3 (150-450); WHITE BLOOD COUNT 2.4 TH/MM3 (4.0-11.0)
[2017-03-06 22:07] LABS: PLATELET ESTIMATE SMEAR LOW (NORMAL); PLATELET MORPHOLOGY NORMAL (NORMAL); SCAN/DIFF AUTO DIFF CONFIRMED
== END 2017-03-07 00:29 | disposition home or self-care (01) ==
LOC: NEPD 16:23
DX: R10.84 Generalized abdominal pain (principal); F10.121 Alcohol abuse with intoxication delirium; M19.90 Unspecified osteoarthritis, unspecified site; E78.00 Pure hypercholesterolemia, unspecified; F31.9 Bipolar disorder, unspecified; Y90.8 Blood alcohol level of 240 mg/100 ml or more; Z87.39 Personal history of other diseases of the musculoskeletal system and connective tissue; Z91.14 Patient's other noncompliance with medication regimen
CPT/HCPCS: 74177; 80053; 80307; 81001; 83690; 85025; 96374; 99285; J2270; J7040; Q9967

== ENCOUNTER 2017-04-07 10:34 | Emergency (ER) | payer OTHER ==
[2017-04-07 10:37] VITALS: BP 151/100; PULSE 95; RESP 20; TEMP 98.4; O2SAT 95
--- NOTE | 2017-04-07 11:18 | PD ---
HPI Chief Complaint: Cold / Flu Symptoms Time Seen by Provider: 11:09 Travel History International Travel<30 days: No Contact w/Intl Traveler<30days: No Traveled to known affect area: No History of Present Illness HPI 56-year-old male with chronic abdominal pain presents to the emergency room for evaluation of sweats, chills, nausea, congestion, body aches, and fatigue for the past 2 days. States he was in his usual state of health prior to symptoms starting. He also reports that his voice feels like it's changing and when his voice changes, he knows he has more than just a cold. States he doesn't have a cough but he is spitting phlegm out. He also reports bilateral itchy, watery eyes. He has not been taking anything for symptoms. PFSH Past Medical History Arthritis: Yes Bipolar Disorder: Yes Depression: Yes Heart Rhythm Problems: No Cancer: No Cardiac Catheterization: No Cardiovascular Problems: No High Cholesterol: Yes Congestive Heart Failure: No Diabetes: No Diminished Hearing: No Endocrine: No Gastrointestinal Disorders: No Genitourinary: No Hepatitis: No Hiatal Hernia: Yes Heparin Induced Thrombocytopen: No Hypertension: No Immune Disorder: No Inguinal Hernia: Yes Musculoskeletal: Yes (BACK PAIN HX) Neurologic: No Psychiatric: Yes (BIPOLAR SChizopyhrenia) Reproductive: No Respiratory: No Immunizations Current: Yes Thyroid Disease: No Past Surgical History Abdominal Surgery: No AICD: No Cardiac Surgery: No Coronary Artery Bypass Graft: No Ear Surgery: No Eye Surgery: No Genitourinary Surgery: No Gynecologic Surgery: No Joint Replacement: No Neurologic Surgery: No Oral Surgery: No Pacemaker: No Thoracic Surgery: No Other Surgery: Yes (HERNIA ) Social History Alcohol Use: Yes (EVERY DAY) Tobacco Use: No Substance Use: No (PT DENIES) Allergies-Medications (Allergen,Severity, Reaction): Coded Allergies: No Known Allergies (Verified Adverse Reaction, Unknown, 03/06/17) Reported Meds & Prescriptions Reported Meds & Active Scripts Active No Active Prescriptions or Reported Medications Review of Systems Except as stated in HPI: all other systems reviewed are Neg Physical Exam Narrative GENERAL: Well-nourished, well-developed male in no acute distress. Afebrile. Ambulatory. SKIN: Focused skin assessment warm/dry. HEAD: Normocephalic. EYES: No scleral icterus. No injection or drainage. NECK: Supple, trachea midline. No JVD or lymphadenopathy. CARDIOVASCULAR: Regular rate and rhythm without murmurs, gallops, or rubs. RESPIRATORY: Breath sounds equal bilaterally. No accessory muscle use. No crackles, rales, wheezes, or rhonchi. GASTROINTESTINAL: Abdomen soft, nondistended. Tenderness to palpation of generalized abdomen. Data Data Last Documented VS Vital Signs Date Time Temp Pulse Resp B/P (MAP) Pulse Ox O2 Delivery O2 Flow Rate FiO2 04/07/17 10:37 98.4 95 20 151/100 (117) 95 Room Air Orders Orders Influenzae A/B Antigen (04/07/17 11:15) Ed Discharge Order (04/07/17 12:06) Mandatory Outpatient Referral (04/07/17 12:06) [facility] Medical Decision Making Medical Screen Exam Complete: Yes Emergency Medical Condition: Yes Medical Record Reviewed: Yes Differential Diagnosis Influenza, Chronic abdominal pain, congestion, bronchitis, upper respiratory infection, pneumonia unlikely Narrative Course 56-year-old male well-known to the emergency room presents to the emergency room for evaluation of multiple nonspecific, somatic complaints including sweats , chills, nausea, congestion, body aches, and fatigue for the past 2 days. One complaint is chronic abdominal pain but he immediately asks for food. Physical exam is reassuring. Vital signs stable. No evidence of pneumonia, strep, or sinus infection. Influenza is negative. Patient is stable for outpatient follow-up. Diagnosis Primary Impression: Viral syndrome Referrals: Primary Care Physician Additional Instructions: Rest and drink plenty of fluids. Follow-up with a primary care physician. Return to the emergency room for worsening symptoms. Scripts No Active Prescriptions or Reported Meds Disposition: 01 DISCHARGE HOME Condition: Stable Sydney Corley Apr 07, 2017 11:18
== END 2017-04-07 12:22 | disposition home or self-care (01) ==
LOC: NEPK 10:34
DX: B34.9 Viral infection, unspecified (principal); E78.00 Pure hypercholesterolemia, unspecified; F31.9 Bipolar disorder, unspecified; G89.29 Other chronic pain; Z87.39 Personal history of other diseases of the musculoskeletal system and connective tissue
CPT/HCPCS: 87804; 99283

== ENCOUNTER 2017-05-10 18:00 | Inpatient (IN) | payer SELFPAY ==
[~2017-05-10] VITALS: Ht 175.3 cm; Wt 83.5 kg
[~2017-05-10 18:00] MED LIST changes: -COLA100C5 PO; +DOCU1CAP39 PO; -GABA600T PO; +IBUP-232 PO; +LIDO1ADH4 T-DERMAL; +MAGN30S PO; +METH500T3 PO; +OXYC1TAB63 PO; -PERC5TAB12 PO; -TIZA4TAB PO; -TRAM50TA PO; -TYLE325T PO
[2017-05-10 18:01] VITALS: BP 142/89; PULSE 85; RESP 18; TEMP 99.9; O2SAT 97
[2017-05-10 19:30] LABS: AUTOMATED NEUTROPHIL # 2.4 TH/MM3 (1.8-7.7); EOSINOPHIL # 0.1 TH/MM3 (0-0.4); EOSINOPHIL % 2.7 % (0.0-4.0); HEMATOCRIT 40.6 % (39.0-51.0); HEMOGLOBIN 13.4 GM/DL (13.0-17.0); LYMPH % 31.7 % (9.0-44.0); LYMPHOCYTE # 1.4 TH/MM3 (1.0-4.8); MEAN CELL VOLUME 87.6 FL (80.0-100.0); MEAN CORPUSCULAR HEMOGLOBIN 28.9 PG (27.0-34.0); MEAN CORPUSCULAR HGB CONC 33.1 % (32.0-36.0); MEAN PLATELET VOLUME 8.4 FL (7.0-11.0); MONO % 10.6 % (0.0-8.0); MONOCYTE # 0.5 TH/MM3 (0-0.9); PLATELET COUNT 255 TH/MM3 (150-450); RED BLOOD COUNT 4.63 MIL/MM3 (4.50-5.90); RED CELL DISTRIBUTION WIDTH 15.2 % (11.6-17.2); WHITE BLOOD COUNT 4.5 TH/MM3 (4.0-11.0)
[2017-05-10 19:44] LABS: BICARBONATE 29.7 MEQ/L (21.0-32.0); CALCIUM 9.5 MG/DL (8.5-10.1); CREATININE 0.91 MG/DL (0.60-1.30)
[2017-05-10] MEDS ORDERED: PIPERACIL-TAZO 4.5 GM PREMIX 100 ML IV ONE (20:00)
[2017-05-10] MEDS ORDERED: VANCOMYCIN INJ 1,000 MG in SODIUM CHLOR 0.9% 250 ML INJ 250 ML IV ONE (20:00)
[2017-05-10] MEDS ORDERED: MORPHINE SULFATE 2 MG/ML INJ IV PUSH ONE (20:00)
--- NOTE | 2017-05-10 20:08 | PD ---
HPI Chief Complaint: Eye Problems/Injury Time Seen by Provider: 19:29 Travel History International Travel<30 days: No Contact w/Intl Traveler<30days: No Traveled to known affect area: No History of Present Illness HPI 56 YO M with PMH of EtOH abuse presents to the ED for evaluation of 20 day history of left eye pain, redness and swelling status post head trauma on 04/19. Patient fell down approximately 20 stairs while intoxicated. Patient was evaluated in the ED by Dr. Branch who has been following him on outpatient basis. He states that he does not have any vision or light perception in the eye. He states the eye continues to be painful, with white discharge. He states the pain is 10/10, constant, throbbing. No alleviating or exacerbating factors reported. He was seen by Dr. Branch today who sent him to the ED to rule out orbital cellulitis. PFSH Past Medical History Arthritis: Yes Bipolar Disorder: Yes Anxiety: Yes Depression: Yes Heart Rhythm Problems: No Cancer: No Cardiac Catheterization: No Cardiovascular Problems: No High Cholesterol: Yes Congestive Heart Failure: No Diabetes: No Diminished Hearing: No Endocrine: No Gastrointestinal Disorders: No Genitourinary: No Hepatitis: No Hiatal Hernia: Yes Heparin Induced Thrombocytopen: No Hypertension: No Immune Disorder: No Inguinal Hernia: Yes Musculoskeletal: Yes (BACK PAIN HX) Neurologic: No Psychiatric: Yes (BIPOLAR SChizopyhrenia) Reproductive: No Respiratory: No Immunizations Current: Yes Thyroid Disease: No Influenza Vaccination: Yes Past Surgical History Abdominal Surgery: Yes (Hernia repair) AICD: No Body Medical Devices: "plate in L arm" Cardiac Surgery: No Coronary Artery Bypass Graft: No Ear Surgery: No Eye Surgery: No Genitourinary Surgery: No Gynecologic Surgery: No Joint Replacement: No Neurologic Surgery: No Oral Surgery: No Pacemaker: No Thoracic Surgery: No Other Surgery: Yes (HERNIA ) Family History Family Myocardial Infarction: Yes Social History Alcohol Use: No (hasn't drank since ) Tobacco Use: No Substance Use: Yes Allergies-Medications (Allergen,Severity, Reaction): Coded Allergies: No Known Allergies (Verified Adverse Reaction, Unknown, 05/10/17) Reported Meds & Prescriptions Reported Meds & Active Scripts Active Ibuprofen 600 Mg Tab 600 Mg PO Q8HR 5 Days Lidoderm (Lidocaine) 5 % Adh..patch 1 Patch T-DERMAL DAILY 5 Days Oxycodone-Acetaminophen 5-325 (Oxycodone HCl/Acetaminophen) 5 Mg-325 Mg Tablet 1 Tab PO Q6H PRN Dok (Docusate Sodium) 100 Mg Cap 100 Mg PO BID 5 Days Review of Systems Except as stated in HPI: all other systems reviewed are Neg Physical Exam Narrative GENERAL: Well-nourished, well-developed male in no acute distress. SKIN: Focused skin assessment warm/dry. HEAD: Normocephalic. EYES: No scleral icterus. FOCUSED OS EYE EXAM: Positive proptosis. Deeply injected conjunctiva. Inferior conjunctival tear noted. Pupil is irregular. EOMI. No light perception/vision. NECK: Supple, trachea midline. No JVD or lymphadenopathy. CARDIOVASCULAR: Regular rate and rhythm without murmurs, gallops, or rubs. RESPIRATORY: Breath sounds clear and equal bilaterally. No accessory muscle use. GASTROINTESTINAL: Abdomen soft, non-tender, nondistended. MUSCULOSKELETAL: No cyanosis, or edema. BACK: Nontender without obvious deformity. No CVA tenderness. Data Data Last Documented VS Vital Signs Date Time Temp Pulse Resp B/P (MAP) Pulse Ox O2 Delivery O2 Flow Rate FiO2 05/10/17 18:01 99.9 85 18 142/89 (106) 97 Room Air Orders Orders Complete Blood Count With Diff (05/10/17 18:35) Basic Metabolic Panel (Bmp) (05/10/17 18:35) Coag Profile (05/10/17 18:35) Blood Culture (05/10/17 19:30) Iv Access Insert/Monitor (05/10/17 19:30) Vancomycin Inj (Vancomycin Inj) (05/10/17 20:00) Piperacil-Tazo 4.5 Gm Premix (Zosyn 4.5 (05/10/17 20:00) Morphine Inj (Morphine Inj) (05/10/17 20:00) Consult Ophthalmology (05/10/17 ) Ct Orbits W Iv Contrast (05/10/17 ) Iohexol 350 Inj (Omnipaque 350 Inj) (05/10/17 20:43) Admit Order (Ed Use Only) (05/10/17 21:05) Labs Laboratory Tests Test 05/10/17 18:40 White Blood Count 4.5 TH/MM3 Red Blood Count 4.63 MIL/MM3 Hemoglobin 13.4 GM/DL Hematocrit 40.6 % Mean Corpuscular Volume 87.6 FL Mean Corpuscular Hemoglobin 28.9 PG Mean Corpuscular Hemoglobin Concent 33.1 % Red Cell Distribution Width 15.2 % Platelet Count 255 TH/MM3 Mean Platelet Volume 8.4 FL Neutrophils (%) (Auto) 54.0 % Lymphocytes (%) (Auto) 31.7 % Monocytes (%) (Auto) 10.6 % Eosinophils (%) (Auto) 2.7 % Basophils (%) (Auto) 1.0 % Neutrophils # (Auto) 2.4 TH/MM3 Lymphocytes # (Auto) 1.4 TH/MM3 Monocytes # (Auto) 0.5 TH/MM3 Eosinophils # (Auto) 0.1 TH/MM3 Basophils # (Auto) 0.0 TH/MM3 CBC Comment DIFF FINAL Differential Comment Prothrombin Time 10.0 SEC Prothromb Time International Ratio 1.0 RATIO Activated Partial Thromboplast Time 26.0 SEC Blood Urea Nitrogen 8 MG/DL Creatinine 0.91 MG/DL Random Glucose 106 MG/DL Calcium Level 9.5 MG/DL Sodium Level 138 MEQ/L Potassium Level 3.9 MEQ/L Chloride Level 104 MEQ/L Carbon Dioxide Level 29.7 MEQ/L Anion Gap 4 MEQ/L Estimat Glomerular Filtration Rate 105 ML/MIN MDM Medical Decision Making Medical Screen Exam Complete: Yes Emergency Medical Condition: Yes Differential Diagnosis optic nerve injury versus periorbital cellulitis versus orbital cellulitis versus other Narrative Course 56-year-old male presents to the ED for evaluation of possible left orbital cellulitis. He was sent by Dr. 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 Endorses chills, has not measured a fever at home. 99.9 on presentation. On exam the left eye has proptosis, deeply injected conjunctiva. Inferior conjunctival tear, irregular pupil, no light perception or vision. EOMI. IV was established. Patient was administered 4 mg morphine, IV Vanco and Zosyn. Consult placed with Dr. Branch. CT orbits reveals mild preceptor soft tissue swelling along the left orbit. I spoke with Dr. Feng who agrees to accept the patient to the medicine service. Please see medicine and ophthalmology notes for disposition Nata Graves May 10, 2017 20:08
[2017-05-10] MEDS ORDERED: IOHEXOL 350 MG/ML 10 ML VIAL (for RAD DIAG) IVCONTRAST ONE (20:43)
--- NOTE | 2017-05-10 21:01 | RADRPT ---
EXAM DATE/TIME: 05/10/2017 20:27 [facility] COMPARISON: CT FACIAL BONES W/O CONTRAST, April 19, 2017, 15:29. INDICATIONS : Left eye cellulitis. IV CONTRAST: 70 cc Omnipaque 350 (iohexol) IV RADIATION DOSE: 30.08 CTDIvol (mGy) MEDICAL HISTORY : None SURGICAL HISTORY : Hernia repair. ENCOUNTER: Initial ACUITY: 3 weeks PAIN SCALE: 4/10 LOCATION: Left orbit TECHNIQUE: Volumetric scanning of the orbits was performed. Using automated exposure control and adjustment of the mA and/or kV according to patient size, radiation dose was kept as low as reasonably achievable t o obtain optimal diagnostic quality images. DICOM format image data is available electronically for review and comparison. FINDINGS: PRESEPTAL: There is mild pre-septal soft tissue swelling along the left orbit. No retrobulbar soft tissue swelli ng is seen. The right orbit is within normal limits GLOBES: Normal shape without wall thickening. The lens is grossly intact. EXTRAOCULAR MUSCLES: Symmetric and normal thickness. ORBITAL ABREU: Intact. The greater wing of the sphenoid is intact. OPTIC NERVES: Normal size. The optic canal is not enlarged. The retroconal fat is normal in appearance. RETROAPIACL REGION: The optic chiasm is grossly intact. The visualized portion of the cavernous sinus and brainstem is i ntact. CONCLUSION: Mild preseptal soft tissue swelling along the left orbit. Ben Cornejo MD on May 10, 2017 at 20:55 Board Certified Radiologist. This report was verified electronically.
[2017-05-10] MEDS ORDERED: ACETAMINOPHEN 325 MG TAB PO ONE (21:30)
[2017-05-10] MEDS ORDERED: ACETAMINOPHEN 325 MG TAB PO PRN (21:45)
[2017-05-10] MEDS ORDERED: ONDANSETRON HCL 4 MG/2 ML VIAL IVP PRN (21:45)
[2017-05-10] MEDS ORDERED: SODIUM CHLORIDE 0.9% FLUSH 10 ML FLUSH IV FLUSH PRN (21:45)
[2017-05-10] MEDS ORDERED: NALOXONE HCL 0.4 MG/ML AMP IV PUSH PRN (21:45)
[2017-05-10] MEDS ORDERED: MAGNESIUM HYDROXIDE SUSP 30 ML CUP PO PRN (21:45)
[2017-05-10] MEDS ORDERED: SENNOSIDES 8.6 MG TAB PO PRN (21:45)
[2017-05-10] MEDS ORDERED: Vancomycin Consult Pharmacy 1 EA OTHER SCH (21:45)
[2017-05-10] MEDS ORDERED: LACTULOSE SYRUP 20 GM/30 ML CUP PO PRN (21:45)
[2017-05-10] MEDS ORDERED: BISACODYL 10 MG SUPP RECTAL PRN (21:45)
[2017-05-10 21:54] VITALS: BP 149/85; PULSE 76; RESP 18; O2SAT 97
[2017-05-10 22:43] VITALS: BP 150/91; PULSE 64; RESP 18; TEMP 98.5; O2SAT 96
[2017-05-11] MEDS ORDERED: VANCOMYCIN 500 MG/NS 100 ML IV ONE ×2
--- NOTE | 2017-05-11 00:13 | HHI.HP ---
[facility] Primary Care Physician No Primary Care Physician Admission Diagnosis rule out orbital cellulitis Diagnoses: Travel History International Travel<30 Days: No Contact w/Intl Traveler <30 Da: No Traveled to Known Affected Are: No History of Present Illness 56 year old male with a past medical history significant for alcohol abuse status post a fall down the stairs on 04/19/17 resents to the emergency department from his [facility] c[facility]rer[facility] office for evaluation of left eye cellulitis. 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 He reports that his eye has been painful with a white discharge since the day of his trauma. He states that he does not have any vision or light perception in his left eye. The patient denies any fever/ chills. Denies chest pain, shortness of breath and cough. Has no other complaints at this time. Review of Systems Except as stated in HPI: all other systems reviewed are Neg Past Family Social History Past Medical History Alcohol abuse Past Surgical History Left wrist Left knee arthroscopically Inguinal and umbilical hernia repairs Reported Medications Reported Meds & Active Scripts Active Ibuprofen 600 Mg Tab 600 Mg PO Q8HR 5 Days Lidoderm (Lidocaine) 5 % Adh..patch 1 Patch T-DERMAL DAILY 5 Days Oxycodone-Acetaminophen 5-325 (Oxycodone HCl/Acetaminophen) 5 Mg-325 Mg Tablet 1 Tab PO Q6H PRN Dok (Docusate Sodium) 100 Mg Cap 100 Mg PO BID 5 Days Allergies: Coded Allergies: No Known Allergies (Verified Adverse Reaction, Unknown, 05/10/17) Family History Mother with both diabetes mellitus and coronary artery disease Social History Last drink 04/19/17. Smokes approximately one black and hudson cigar per day. Denies marijuana and illicit drugs. Physical Exam Vital Signs Vital Signs Date Time Temp Pulse Resp B/P (MAP) Pulse Ox O2 Delivery O2 Flow Rate FiO2 05/10/17 22:43 98.5 64 18 150/91 (110) 96 05/10/17 22:05 05/10/17 21:54 76 18 149/85 (106) 97 2/6/18 18:01 99.9 85 18 142/89 (106) 97 Room Air Physical Exam GENERAL: Jessica male lying in bed SKIN: No rashes, ecchymoses or lesions. Cool and dry. HEAD: Atraumatic. Normocephalic. No temporal or scalp tenderness. EYES: Left eye with proptosis and deeply injected conjunctiva. Irregular pupil. No vision/light sensitivity. Inferior conjunctival tear noted. Severe swelling. ENT: Nose without bleeding, purulent drainage or septal hematoma. Throat without erythema, tonsillar hypertrophy or exudate. Uvula midline. Airway patent. NECK: Trachea midline. No JVD or lymphadenopathy. Supple, nontender, no meningeal signs. CARDIOVASCULAR: Regular rate and rhythm without murmurs, gallops, or rubs. RESPIRATORY: Clear to auscultation. Breath sounds equal bilaterally. No wheezes , rales, or rhonchi. GASTROINTESTINAL: Abdomen soft, non-tender, nondistended. No hepato-splenomegaly , or palpable masses. No guarding. MUSCULOSKELETAL: Extremities without clubbing, cyanosis, or edema. No joint tenderness, effusion, or edema noted. No calf tenderness. NEUROLOGICAL: Awake and alert. Cranial nerves II through XII intact. Motor and sensory grossly within normal limits. Normal speech. Laboratory Laboratory Tests Test 05/10/17 18:40 White Blood Count 4.5 Red Blood Count 4.63 Hemoglobin 13.4 Hematocrit 40.6 Mean Corpuscular Volume 87.6 Mean Corpuscular Hemoglobin 28.9 Mean Corpuscular Hemoglobin Concent 33.1 Red Cell Distribution Width 15.2 Platelet Count 255 Mean Platelet Volume 8.4 Neutrophils (%) (Auto) 54.0 Lymphocytes (%) (Auto) 31.7 Monocytes (%) (Auto) 10.6 Eosinophils (%) (Auto) 2.7 Basophils (%) (Auto) 1.0 Neutrophils # (Auto) 2.4 Lymphocytes # (Auto) 1.4 Monocytes # (Auto) 0.5 Eosinophils # (Auto) 0.1 Basophils # (Auto) 0.0 CBC Comment DIFF FINAL Differential Comment Prothrombin Time 10.0 Prothromb Time International Ratio 1.0 Activated Partial Thromboplast Time 26.0 Blood Urea Nitrogen 8 Creatinine 0.91 Random Glucose 106 Calcium Level 9.5 Sodium Level 138 Potassium Level 3.9 Chloride Level 104 Carbon Dioxide Level 29.7 Anion Gap 4 Estimat Glomerular Filtration Rate 105 Date/Time Source Procedure Growth Status 05/10/17 19:35 Blood Peripheral Aerobic Blood Culture Pending Received 05/10/17 19:35 Blood Peripheral Anaerobic Blood Culture Pending Received Result Diagram: 05/10/170 05/10/17 1840 Caprinannabelle VTE Risk Assessment Caprini VTE Risk Assessment: Mod/High Risk (score >= 2) Caprini Risk Assessment Model Point Value = 1 Point Value = 2 Point Value = 3 Point Value = 5 Age 41-60 Minor surgery BMI > 25 kg/m2 Swollen legs Varicose veins or History of unexplained or recurrent spontaneous Oral contraceptives or hormone replacement Sepsis (< 1 month) Serious lung disease, including pneumonia (< 1 month) Abnormal pulmonary function Acute myocardial infarction Congestive heart failure (< 1 month) History of inflammatory bowel disease Medical patient at bed rest Age 61-74 Arthroscopic surgery Major open surgery (> 45 min) Laparoscopic surgery (> 45 min) Malignancy Confined to bed (> 72 hours) Immobilizing plaster cast Central venous access Age >= 75 History of VTE Family history of VTE Factor V Leiden Prothrombin [id number] Lupus anticoagulant Anticardiolipin antibodies Elevated serum homocysteine Heparin-induced thrombocytopenia Other congenital or acquired thrombophilia Stroke (< 1 month) Elective arthroplasty Hip, pelvis, or leg fracture Acute spinal cord injury (< 1 month) Prophylaxis Regimen Total Risk Factor Score Risk Level Prophylaxis Regimen 0-1 Low Early ambulation 2 Moderate Order ONE of the following: *Sequential Compression Device (SCD) *Heparin 5000 units SQ BID 3-4 Higher Order ONE of the following medications: *Heparin 5000 units SQ TID *Enoxaparin/Lovenox 40 mg SQ daily (WT < 150 kg, CrCl > 30 mL/min) *Enoxaparin/Lovenox 30 mg SQ daily (WT < 150 kg, CrCl > 10-29 mL/min) *Enoxaparin/Lovenox 30 mg SQ BID (WT < 150 kg, CrCl > 30 mL/min) AND/OR *Sequential Compression Device (SCD) 5 or more Highest Order ONE of the following medications: *Heparin 5000 units SQ TID (Preferred with Epidurals) *Enoxaparin/Lovenox 40 mg SQ daily (WT < 150 kg, CrCl > 30 mL/min) *Enoxaparin/Lovenox 30 mg SQ daily (WT < 150 kg, CrCl > 10-29 mL/min) *Enoxaparin/Lovenox 30 mg SQ BID (WT < 150 kg, CrCl > 30 mL/min) AND *Sequential Compression Device (SCD) Assessment and Plan Assessment and Plan Assessment/plan: 1. Left eye cellulitis CT of the orbit significant for mild preseptal soft tissue swelling along the left orbit Vancomycin/Zosyn Ophthalmology consulted, appreciate recommendations 2. Alcohol abuse Patient reports that he has not had any alcohol since his accident CIWA protocol Monitor for signs of withdrawal FEN NPO Electrolytes: Monitor and replete when necessary NS at 100 cc/hour Ambulation Physician Certification 2 Midnight Certification Type: Admission for Inpatient Services Order for Inpatient Services The services are ordered in accordance with Medicare regulations or non- Medicare payer requirements, as applicable. In the case of services not specified as inpatient-only, they are appropriately provided as inpatient services in accordance with the 2-midnight benchmark. Estimated LOS (days): 2 2 days is the estimated time the patient will need to remain in the hospital, assuming treatment plan goals are met and no additional complications. Post-Hospital Plan: Not yet determined Bethanie Brooks MD May 11, 2017 00:13
[2017-05-11] MEDS ORDERED: LORazepam 2 MG/ML VIAL IV PUSH PRN ×4 (00:15)
[2017-05-11] MEDS ORDERED: LORazepam 1 MG TAB PO PRN (00:15)
[2017-05-11] MEDS ORDERED: FLUMAZENIL 0.5 MG/5 ML VIAL IV PUSH PRN (00:15)
[2017-05-11] MEDS ORDERED: LORazepam 2 MG TAB PO PRN (00:15)
[2017-05-11] MEDS: SODIUM CHLOR 0.9% 1000 ML INJ 1,000 ML IV SCH ×3 (02:39→22:21)
[2017-05-11] MEDS: PIPERACIL-TAZO 3.375 GM PREMIX 50 ML IV SCH ×4 (04:26→22:20)
[2017-05-11 05:02] VITALS: BP 119/83; PULSE 74; RESP 18; TEMP 98; O2SAT 96
[2017-05-11] MEDS ORDERED: ONDANSETRON HCL 4 MG/2 ML VIAL IV PUSH PRN (05:30)
[2017-05-11] MEDS: MORPHINE SULFATE 2 MG/ML INJ IV PUSH PRN (06:13)
[2017-05-11 08:12] VITALS: BP 145/87; PULSE 60; RESP 20; TEMP 98; O2SAT 96
[2017-05-11 08:24] LABS: AUTOMATED NEUTROPHIL # 1.2 TH/MM3 (1.8-7.7); BASOPHIL % 1.3 % (0.0-2.0); EOSINOPHIL # 0.1 TH/MM3 (0-0.4); EOSINOPHIL % 4.9 % (0.0-4.0); HEMATOCRIT 38.3 % (39.0-51.0); HEMOGLOBIN 12.9 GM/DL (13.0-17.0); LYMPH % 41.9 % (9.0-44.0); LYMPHOCYTE # 1.3 TH/MM3 (1.0-4.8); MEAN CORPUSCULAR HEMOGLOBIN 28.9 PG (27.0-34.0); MEAN CORPUSCULAR HGB CONC 33.6 % (32.0-36.0); MEAN PLATELET VOLUME 8.1 FL (7.0-11.0); MONO % 14.2 % (0.0-8.0); MONOCYTE # 0.4 TH/MM3 (0-0.9); NEUT % 37.7 % (16.0-70.0); PLATELET COUNT 236 TH/MM3 (150-450); RED BLOOD COUNT 4.45 MIL/MM3 (4.50-5.90); WHITE BLOOD COUNT 3.1 TH/MM3 (4.0-11.0)
[2017-05-11 08:49] LABS: BICARBONATE 30.8 MEQ/L (21.0-32.0); CALCIUM 9.1 MG/DL (8.5-10.1); CREATININE 0.91 MG/DL (0.60-1.30)
[2017-05-11] MEDS: SODIUM CHLORIDE 0.9% FLUSH 10 ML FLUSH IV FLUSH SCH ×2 (09:00→21:00)
[2017-05-11] MEDS: DOCUSATE SODIUM 50 MG/SENNA 8.6 MG TAB PO SCH ×2 (10:24→21:00)
[2017-05-11] MEDS: VANCOMYCIN INJ 1,250 MG in SODIUM CHLOR 0.9% 250 ML INJ 250 ML IV SCH ×2 (10:24→22:20)
--- NOTE | 2017-05-11 10:58 | EKG ---
Date Performed: 05/11/2017 Time Performed: 05:09:40 PTAGE: 56 years EKG: Sinus rhythm WITH SINUS ARRHYTHMIA NORMAL ECG PREVIOUS TRACING : 02/27/2017 15.48 DOCTOR: Isaac Esquivel Interpretating Date/Time 05/11/2017 10:55:37
--- NOTE | 2017-05-11 12:12 | PD.CONS ---
History of Present Illness Service Ophthalmology Consult Requested By Reason for Consult proptosis/injury left eye Primary Care Physician No Primary Care Physician Diagnoses: History of Present Illness 56 yo BM who presented to the ED on 04/19/17 after a fall down the stairs while inebriated. I saw him at the time - he had severe proptosis on the left with no retroorbital hematoma on the CT. Spoke to the radiologist who said he had mild edema. He also had complete vision loss in that left eye most likely due to an optic nerve injury, which is permanent. As an outpatient he has been in severe pain, and the proptosis is not resolving. He was sent to the ED yesterday to get a CT Orbits to rule out orbital cellulitis or some other pathology. CT showed mild preseptal edema. Patient states his pain has not improved, although he seemed to be sleeping comfortably when I walked into the room. He will also be scheduled for repair of the torn conjunctiva in the OR when his pain and swelling have improved. Past Family Social History Allergies: Coded Allergies: No Known Allergies (Verified Adverse Reaction, Unknown, 05/10/17) Physical Exam Vital Signs Vital Signs Date Time Temp Pulse Resp B/P (MAP) Pulse Ox O2 Delivery O2 Flow Rate FiO2 05/11/17 08:12 98.0 60 20 145/87 (106) 96 05/11/17 05:02 98.0 74 18 119/83 (95) 96 05/10/17 22:43 98.5 64 18 150/91 (110) 96 05/10/17 22:05 05/10/17 21:54 76 18 149/85 (106) 97 05/10/17 18:01 99.9 85 18 142/89 (106) 97 Room Air Physical Exam Va cc at near OD 20/20, OS LP EOM full OU, no diplopia CVF full OD, unable OS Pupils 2-1 OD, 6mm OS IOP 36 OS Anterior exam - difficult due to pain OS - severe proptosis, conj injection with tear inferiorly and Tenon's capsule hanging, K clear, AC deep, pupil dilated, lens clear Laboratory Laboratory Tests Test 05/10/17 18:40 05/11/17 07:33 White Blood Count 4.5 3.1 Red Blood Count 4.63 4.45 Hemoglobin 13.4 12.9 Hematocrit 40.6 38.3 Mean Corpuscular Volume 87.6 86.0 Mean Corpuscular Hemoglobin 28.9 28.9 Mean Corpuscular Hemoglobin Concent 33.1 33.6 Red Cell Distribution Width 15.2 15.0 Platelet Count 255 236 Mean Platelet Volume 8.4 8.1 Neutrophils (%) (Auto) 54.0 37.7 Lymphocytes (%) (Auto) 31.7 41.9 Monocytes (%) (Auto) 10.6 14.2 Eosinophils (%) (Auto) 2.7 4.9 Basophils (%) (Auto) 1.0 1.3 Neutrophils # (Auto) 2.4 1.2 Lymphocytes # (Auto) 1.4 1.3 Monocytes # (Auto) 0.5 0.4 Eosinophils # (Auto) 0.1 0.1 Basophils # (Auto) 0.0 0.0 CBC Comment DIFF FINAL DIFF FINAL Differential Comment Prothrombin Time 10.0 Prothromb Time International Ratio 1.0 Activated Partial Thromboplast Time 26.0 Blood Urea Nitrogen 8 4 Creatinine 0.91 0.91 Random Glucose 106 95 Calcium Level 9.5 9.1 Sodium Level 138 142 Potassium Level 3.9 4.3 Chloride Level 104 106 Carbon Dioxide Level 29.7 30.8 Anion Gap 4 5 Estimat Glomerular Filtration Rate 105 105 Date/Time Source Procedure Growth Status 05/10/17 19:35 Blood Peripheral Aerobic Blood Culture - Preliminary NO GROWTH IN 1 DAY Resulted 05/10/17 19:35 Blood Peripheral Anaerobic Blood Culture - Preliminary NO GROWTH IN 1 DAY Resulted Result Diagram: 05/11/17 0733 05/11/17 0733 Assessment and Plan Problem List: (1) Preseptal cellulitis of left eye ICD Codes: L03.213 - Periorbital cellulitis Status: Acute Plan: Cont Zosyn q6h, Vanc q12h. Added prednisone 100mg daily to assist with edema. Intraocular pressure increased - started timolol BID OS, brimonidine BID OS. (2) Laceration of left conjunctiva ICD Codes: S05.32XA - Ocular laceration without prolapse or loss of intraocular tissue, left eye, initial encounter Plan: Hold on repair in OR until proptosis and pain improve. (3) Optic nerve trauma of left eye ICD Codes: S04.012A - Injury of optic nerve, left eye, initial encounter Status: Acute Plan: Will need a dilated exam while under anesthesia in OR. Problem Qualifiers (1) Laceration of left conjunctiva: Qualified Codes: S05.32XD - Ocular laceration without prolapse or loss of intraocular tissue, left eye, subsequent encounter (2) Optic nerve trauma of left eye: Qualified Codes: S04.012D - Injury of optic nerve, left eye, subsequent encounter Leonela Branch MD May 11, 2017 12:12
[2017-05-11 12:57] VITALS: BP 135/89; PULSE 78; RESP 18; TEMP 98.7; O2SAT 93
[2017-05-11] MEDS: TIMOLOL MALEATE 0.5% OPHT SOLN 5 ML BTL LEFT EYE SCH ×2 (13:08→21:00)
[2017-05-11] MEDS: BRIMONIDINE TARTRATE 0.2% OPHT SOLN 5 ML BTL LEFT EYE SCH ×2 (13:08→21:00)
[2017-05-11] MEDS: predniSONE 50 MG TAB PO SCH (13:08)
[2017-05-11 15:48] VITALS: BP 130/80; PULSE 83; RESP 18; TEMP 98.1; O2SAT 95
[2017-05-11 17:26] VITALS: BP 140/84; PULSE 71; RESP 18; TEMP 98.9; O2SAT 94
[2017-05-11 20:00] VITALS: BP 142/91; PULSE 89; RESP 18; TEMP 97.9; O2SAT 94
[2017-05-12] VITALS: BP 139/99; PULSE 83; RESP 18; TEMP 98; O2SAT 97
[2017-05-12] MEDS: PIPERACIL-TAZO 3.375 GM PREMIX 50 ML IV SCH ×4 (06:02→22:00)
[2017-05-12] MEDS: SODIUM CHLOR 0.9% 1000 ML INJ 1,000 ML IV SCH ×2 (06:02→16:53)
[2017-05-12] MEDS: MORPHINE SULFATE 2 MG/ML INJ IV PUSH PRN ×3 (06:08→20:26)
[2017-05-12 08:00] VITALS: BP 147/90; PULSE 61; RESP 16; TEMP 98.5; O2SAT 95
[2017-05-12] MEDS: predniSONE 50 MG TAB PO SCH (08:54)
[2017-05-12] MEDS: DOCUSATE SODIUM 50 MG/SENNA 8.6 MG TAB PO SCH ×2 (08:55→20:26)
[2017-05-12] MEDS: BRIMONIDINE TARTRATE 0.2% OPHT SOLN 5 ML BTL LEFT EYE SCH ×2 (08:55→20:27)
[2017-05-12] MEDS: TIMOLOL MALEATE 0.5% OPHT SOLN 5 ML BTL LEFT EYE SCH ×2 (08:55→20:27)
[2017-05-12] MEDS: SODIUM CHLORIDE 0.9% FLUSH 10 ML FLUSH IV FLUSH SCH ×2 (08:56→20:27)
[2017-05-12] MEDS ORDERED: PHARMACY ORDERED LAB ONE (09:45)
--- NOTE | 2017-05-12 10:59 | HHI.PR ---
Subjective Remarks Pt states that the pain has improved and is now a 5-6/10 instead of a 10/10. Not sure when he will be getting sx but was told in the next couple of days. denies any nausea or vomiting, denies any CP/SOB Objective Vitals Vital Signs Date Time Temp Pulse Resp B/P (MAP) Pulse Ox O2 Delivery O2 Flow Rate FiO2 05/12/17 08:00 98.5 61 16 147/90 (109) 95 05/12/17 00:00 98.0 83 18 139/99 (112) 97 05/11/17 20:00 97.9 89 18 142/91 (108) 94 05/11/17 17:26 98.9 71 18 140/84 (102) 94 05/11/17 15:48 98.1 83 18 130/80 (97) 95 05/11/17 12:57 98.7 78 18 135/89 (104) 93 I/O 05/11/17 05/11/17 05/11/17 05/12/17 05/12/17 05/12/17 07:00 15:00 23:00 07:00 15:00 23:00 Intake Total 300 ml 50 ml Output Total 1050 ml 300 ml Balance -1050 ml 0 ml 50 ml Intake IV Total 300 ml 50 ml Output Urine Total 1050 ml 300 ml Result Diagram: 05/11/17 0733 05/11/17 0733 Imaging Last Impressions Orbit CT 05/10/17 0000 Signed Impressions: Service Date/Time: Wednesday, May 10, 2017 20:27 - CONCLUSION: Mild preseptal soft tissue swelling along the left orbit. Ben Cornejo MD Objective Remarks GENERAL: Jessica male lying in bed EYES: Left eye with proptosis and deeply injected conjunctiva. Severe swelling. ENT: Nose without drainage. Airway patent. NECK: Trachea midline. CARDIOVASCULAR: Regular rate and rhythm without murmurs RESPIRATORY: Clear to auscultation. Breath sounds equal bilaterally. No wheezes GASTROINTESTINAL: Abdomen soft, No guarding. MUSCULOSKELETAL: Extremities without edema. ambulating in room NEUROLOGICAL: Awake and alert. Motor and sensory grossly within normal limits. Normal speech. A/P Assessment and Plan 1. Left eye cellulitis CT of the orbit significant for mild preseptal soft tissue swelling along the left orbit currently onVancomycin/Zosyn Ophthalmology following and recommends continuing current abx regimen and has added prednisone 100mg daily to assist with edema. Intraocular pressure were noted to be increased per their note and pt was started on timolol BID OS, brimonidine BID OS. 2. Alcohol abuse Patient reports that he has not had any alcohol since his accident [facility] protocol Monitor for signs of withdrawal FEN regular diet. change to NPO once OR time known. Electrolytes: Monitor and replete when necessary NS at 75 cc/hour Ambulation Discharge Planning once cleared by ophthalmology Sherrell Oates MD May 12, 2017 10:59
[2017-05-12] MEDS: VANCOMYCIN INJ 1,250 MG in SODIUM CHLOR 0.9% 250 ML INJ 250 ML IV SCH (11:03)
[2017-05-12 12:00] VITALS: BP 142/86; PULSE 89; RESP 18; TEMP 98.2; O2SAT 95
[2017-05-12 16:00] VITALS: BP 159/89; PULSE 83; RESP 20; TEMP 98.6; O2SAT 94
[2017-05-12] MEDS: VANCOMYCIN 1,500 MG/NS 500 ML IV SCH ×2 (20:26)
[2017-05-12 20:49] VITALS: BP 164/85; PULSE 60; RESP 20; TEMP 97.7; O2SAT 97
[2017-05-13 00:04] VITALS: BP 135/77; PULSE 61; RESP 18; TEMP 97.6; O2SAT 96
[2017-05-13] MEDS: PIPERACIL-TAZO 3.375 GM PREMIX 50 ML IV SCH ×4 (03:55→20:19)
[2017-05-13] MEDS: MORPHINE SULFATE 2 MG/ML INJ IV PUSH PRN ×2 (03:57→08:42)
[2017-05-13 05:45] LABS: CALCIUM 8.9 MG/DL (8.5-10.1); CREATININE 0.74 MG/DL (0.60-1.30)
[2017-05-13 08:00] VITALS: BP 161/90; PULSE 60; RESP 17; TEMP 97; O2SAT 95
[2017-05-13] MEDS: predniSONE 50 MG TAB PO SCH (08:41)
[2017-05-13] MEDS: DOCUSATE SODIUM 50 MG/SENNA 8.6 MG TAB PO SCH ×2 (08:42→20:18)
[2017-05-13] MEDS: TIMOLOL MALEATE 0.5% OPHT SOLN 5 ML BTL LEFT EYE SCH ×2 (08:44→20:17)
[2017-05-13] MEDS: BRIMONIDINE TARTRATE 0.2% OPHT SOLN 5 ML BTL LEFT EYE SCH ×2 (08:44→20:18)
[2017-05-13] MEDS: SODIUM CHLORIDE 0.9% FLUSH 10 ML FLUSH IV FLUSH SCH ×2 (08:45→20:16)
--- NOTE | 2017-05-13 09:07 | HHI.PR ---
Subjective Remarks Edema seems to be improving. Patient states the pain is still severe 01/11. Objective Vital Signs Date Time Temp Pulse Resp B/P (MAP) Pulse Ox O2 Delivery O2 Flow Rate FiO2 05/13/17 08:54 16 05/13/17 08:00 97.0 60 17 161/90 (113) 95 05/13/17 00:04 97.6 61 18 135/77 (96) 96 05/12/17 20:49 97.7 60 20 164/85 (111) 97 05/12/17 16:00 98.6 83 20 159/89 (112) 94 05/12/17 12:00 98.2 89 18 142/86 (104) 95 I/O 05/12/17 05/12/17 05/12/17 05/13/17 05/13/17 05/13/17 07:00 15:00 23:00 07:00 15:00 23:00 Intake Total 720 ml 780 ml Balance 720 ml 780 ml Intake Oral 720 ml 780 ml # Voids 4 4 # Bowel Movements 1 Result Diagram: 05/11/17 0733 05/13/17 0353 Objective Remarks Va sc at near OD 20/20, OS LP EOM full OU CVF full OD, unable OS Pupils 2-1 OD, 3mm OS IOP unable Anterior exam OD - normal eyelid, C/S W&Q, K clear, AC deep, pupil round, lens clear OS - eyelid edema and proptosis, conj chemosis and injection, K clear, AC deep, pupil round, lens clear Assessment and Plan Problem List: (1) Preseptal cellulitis of left eye ICD Codes: L03.213 - Periorbital cellulitis Status: Acute Plan: Cont Zosyn q6h, Vanc q12h, prednisone 100mg daily, timolol BID OS, brimonidine BID OS. Pain med seeking behavior - recommend tapering on IV pain meds and switching to oral. (2) Laceration of left conjunctiva ICD Codes: S05.32XA - Ocular laceration without prolapse or loss of intraocular tissue, left eye, initial encounter Plan: Hold on repair in OR until proptosis and pain improve. Will most likely be next week. (3) Optic nerve trauma of left eye ICD Codes: S04.012A - Injury of optic nerve, left eye, initial encounter Status: Acute Plan: Will need a dilated exam while under anesthesia in OR. Problem Qualifiers (1) Laceration of left conjunctiva: Qualified Codes: S05.32XD - Ocular laceration without prolapse or loss of intraocular tissue, left eye, subsequent encounter (2) Optic nerve trauma of left eye: Qualified Codes: S04.012D - Injury of optic nerve, left eye, subsequent encounter Leonela Branch MD May 13, 2017 09:07
[2017-05-13] MEDS: VANCOMYCIN 1,500 MG/NS 500 ML IV SCH ×4 (10:35→20:16)
[2017-05-13] MEDS ORDERED: ACETAMINOPHEN/HYDROcodone 325 MG/7.5 MG TAB PO PRN (10:45)
[2017-05-13] MEDS ORDERED: DOCUSATE SODIUM 50 MG/SENNA 8.6 MG TAB PO PRN (10:45)
[2017-05-13] MEDS ORDERED: MORPHINE SULFATE 2 MG/ML INJ IV PUSH PRN (11:30)
[2017-05-13] MEDS ORDERED: MENT4GEL2 TOPICAL (11:38)
[2017-05-13] MEDS ORDERED: LIDO1PAD52 TOPICAL (11:38)
--- NOTE | 2017-05-13 11:41 | HHI.PR ---
Subjective Remarks Patient complains of pain. He only IV morphine. I explained to him that we need to transition to pain pills and he can have morphine for breakthrough pain. Patient states that he also used to take lidocaine patch at the snf where he was. I will have the nurse verify this. Denies any nausea or vomiting, chest pain or shortness of breath. Objective Vitals Vital Signs Date Time Temp Pulse Resp B/P (MAP) Pulse Ox O2 Delivery O2 Flow Rate FiO2 05/13/17 08:54 16 05/13/17 08:00 97.0 60 17 161/90 (113) 95 05/13/17 00:04 97.6 61 18 135/77 (96) 96 05/12/17 20:49 97.7 60 20 164/85 (111) 97 05/12/17 16:00 98.6 83 20 159/89 (112) 94 05/12/17 12:00 98.2 89 18 142/86 (104) 95 I/O 05/12/17 05/12/17 05/12/17 05/13/17 05/13/17 05/13/17 07:00 15:00 23:00 07:00 15:00 23:00 Intake Total 720 ml 780 ml Balance 720 ml 780 ml Intake Oral 720 ml 780 ml # Voids 4 4 # Bowel Movements 1 Result Diagram: 05/11/17 0733 05/13/17 0353 Imaging Last Impressions Orbit CT 05/10/17 0000 Signed Impressions: Service Date/Time: Wednesday, May 10, 2017 20:27 - CONCLUSION: Mild preseptal soft tissue swelling along the left orbit. Ben Cornejo MD Objective Remarks GENERAL: Jessica male lying in bed EYES: Left eye with proptosis and deeply injected conjunctiva. w Severe swelling. ENT: Nose without drainage. Airway patent. NECK: Trachea midline. CARDIOVASCULAR: Regular rate and rhythm without murmurs RESPIRATORY: Clear to auscultation. Breath sounds equal bilaterally. No wheezes GASTROINTESTINAL: Abdomen soft, No guarding. MUSCULOSKELETAL: Extremities without edema. ambulating in room NEUROLOGICAL: Awake and alert. Motor and sensory grossly within normal limits. Normal speech. A/P Assessment and Plan 1. Left eye cellulitis CT of the orbit significant for mild preseptal soft tissue swelling along the left orbit currently on Vancomycin/Zosyn Ophthalmology following and recommends continuing current abx regimen and on prednisone 100mg daily to assist with edema. Intraocular pressure were noted to be increased per their note and pt was started on timolol BID OS, brimonidine BID OS. Ophthalmology evaluated the patient today, recommends holding on repair in OR until proptosis and pain improve which will most likely be next week, per patient he was told Tuesday. There is concern that patient may have pain medication seeking behavior. I have transitioned him to pain pills. Patient claims he has been on lidocaine patch. RN did confirm this with the snf where he was at. I will resume his lidocaine patch for now. 2. Alcohol abuse Patient reports that he has not had any alcohol since his accident [facility] protocol Monitor for signs of withdrawal FEN regular diet. change to NPO once OR time known. Electrolytes: Monitor and replete when necessary Ambulation Discharge Planning once cleared by ophthalmology Sherrell Oates MD May 13, 2017 11:41
[2017-05-13 12:00] VITALS: BP 157/88; PULSE 69; RESP 17; TEMP 97; O2SAT 96
[2017-05-13] MEDS: ACETAMINOPHEN/HYDROcodone 325 MG/10 MG TAB PO PRN ×2 (12:35→18:36)
[2017-05-13 16:00] VITALS: BP 152/88; PULSE 63; RESP 17; TEMP 98.1; O2SAT 96
[2017-05-13 20:00] VITALS: BP 165/91; PULSE 68; RESP 20; TEMP 98.5; O2SAT 93
[2017-05-14] VITALS: BP 159/83; PULSE 65; RESP 16; TEMP 97.5; O2SAT 97
[2017-05-14] MEDS: ACETAMINOPHEN/HYDROcodone 325 MG/10 MG TAB PO PRN ×4 (00:28→19:44)
[2017-05-14] MEDS: PIPERACIL-TAZO 3.375 GM PREMIX 50 ML IV SCH ×4 (03:14→19:43)
[2017-05-14 08:00] VITALS: BP 152/91; PULSE 59; RESP 19; TEMP 96.4; O2SAT 98
[2017-05-14 08:25] LABS: AUTOMATED NEUTROPHIL # 6.1 TH/MM3 (1.8-7.7); BASOPHIL % 0.4 % (0.0-2.0); EOSINOPHIL % 0.3 % (0.0-4.0); HEMATOCRIT 38.2 % (39.0-51.0); HEMOGLOBIN 12.8 GM/DL (13.0-17.0); MEAN CORPUSCULAR HEMOGLOBIN 28.9 PG (27.0-34.0); MEAN CORPUSCULAR HGB CONC 33.5 % (32.0-36.0); MEAN PLATELET VOLUME 8.6 FL (7.0-11.0); MONO % 9.8 % (0.0-8.0); MONOCYTE # 0.9 TH/MM3 (0-0.9); NEUT % 67.5 % (16.0-70.0); PLATELET COUNT 226 TH/MM3 (150-450); RED BLOOD COUNT 4.44 MIL/MM3 (4.50-5.90); RED CELL DISTRIBUTION WIDTH 14.9 % (11.6-17.2)
[2017-05-14 08:39] LABS: BICARBONATE 31.4 MEQ/L (21.0-32.0); CALCIUM 9.2 MG/DL (8.5-10.1); CREATININE 0.9 MG/DL (0.60-1.30)
[2017-05-14] MEDS: POLYETHYLENE GLYCOL 17 GM PKG PO SCH (09:00)
[2017-05-14] MEDS: TIMOLOL MALEATE 0.5% OPHT SOLN 5 ML BTL LEFT EYE SCH ×2 (09:00→19:43)
[2017-05-14] MEDS: predniSONE 50 MG TAB PO SCH (09:00)
[2017-05-14] MEDS: BRIMONIDINE TARTRATE 0.2% OPHT SOLN 5 ML BTL LEFT EYE SCH ×2 (09:00→19:43)
[2017-05-14] MEDS: DOCUSATE SODIUM 50 MG/SENNA 8.6 MG TAB PO SCH ×2 (09:00→19:43)
[2017-05-14] MEDS: SODIUM CHLORIDE 0.9% FLUSH 10 ML FLUSH IV FLUSH SCH (09:00)
[2017-05-14] MEDS ORDERED: PHARMACY ORDERED LAB ONE (09:45)
[2017-05-14] MEDS: VANCOMYCIN 1,500 MG/NS 500 ML IV SCH ×4 (10:00→19:44)
[2017-05-14 12:00] VITALS: BP 131/81; PULSE 87; RESP 18; TEMP 97.7; O2SAT 99
[2017-05-14] MEDS ORDERED: MENTHOL/METHYL SALICYLATE OINT 30 GM TUBE TOPICAL PRN (12:30)
[2017-05-14] MEDS ORDERED: ALBUTEROL SULFATE 90 MCG/ACT HFA 8 GM INHALER INH PRN (12:30)
[2017-05-14] MEDS: LIDOCAINE HCL 5% PATCH T-DERMAL SCH (13:12)
--- NOTE | 2017-05-14 15:50 | HHI.PR ---
Subjective Remarks 56M with left orbital cellulitis. He is concerned about his vision, but when I asked to shine a light in his eye he said "no, light hurts my eye". I explained that is not a bad sign as it indicates the retina is still alive, but that the rest we will need to evaluate over time. He seemed comforted in knowing this and left the rest "up to God". He understands we are waiting for the swelling to reduce on IV antibiotics and steroids before surgery can be considered. Objective Vitals Vital Signs Date Time Temp Pulse Resp B/P (MAP) Pulse Ox O2 Delivery O2 Flow Rate FiO2 05/14/17 12:00 97.7 87 18 131/81 (98) 99 05/14/17 08:00 96.4 59 19 152/91 (111) 98 05/14/17 00:00 97.5 65 16 159/83 (108) 97 05/13/17 20:00 98.5 68 20 165/91 (115) 93 05/13/17 16:00 98.1 63 17 152/88 (109) 96 I/O 05/13/17 05/13/17 05/13/17 05/14/17 05/14/17 05/14/17 07:00 15:00 23:00 07:00 15:00 23:00 Intake Total 780 ml 565 ml 2709 ml 880 ml 100 ml Balance 780 ml 565 ml 2709 ml 880 ml 100 ml Intake Oral 780 ml 2144 ml 780 ml IV Total 565 ml 565 ml 100 ml 100 ml # Voids 4 7 5 # Bowel Movements 3 Result Diagram: 05/14/17 0727 05/14/17726 Objective Remarks GENERAL: Well-nourished, well-developed patient. HEENT: swollen left eyelid and globe with moderate swelling in periorbital space. HEAD: Normocephalic. EYES: No scleral icterus. No injection or drainage. NECK: Supple, trachea midline. No JVD or lymphadenopathy. CARDIOVASCULAR: Regular rate and rhythm without murmurs, gallops, or rubs. RESPIRATORY: Breath sounds equal bilaterally, scattered wheezing. No accessory muscle use. GASTROINTESTINAL: Abdomen soft, non-tender, nondistended. EXTREMITIES: No cyanosis, or edema. NEUROLOGICAL: Awake, alert, and oriented x 3. Non-focal. A/P Problem List: (1) Preseptal cellulitis of left eye ICD Code: L03.213 - Periorbital cellulitis Status: Acute Assessment and Plan Orbital Cellulitis Left Eye Continue Vancomycin/Zosyn Continue Prednisone 100mg daily to reduce edema Continue Timolol BID, Bromidine BID to assist with Intraocular pressure Appreciate Opthalmology consult Reevaluation of eye on Tuesday to determine if swelling is reduced enough for surgery Chronic Lumbar & Cervical Pain At patient's request, Lidocaine patch and Bertin Gomez ointment added Cross covered with [place] for the eye Prednisone should also be helping Wheezing Short history of smoking cigarettes, approximately 5 years in distant past Wheezing mild on exam Albuterol PRN h/o Alcohol Abuse Denies any alcohol use since his accident CIWA protocol in place DVT Prophylaxis Ambulating the halls regularly Julio Motley MD May 14, 2017 15:50
[2017-05-14 16:00] VITALS: BP 155/84; PULSE 79; RESP 18; TEMP 98.4; O2SAT 95
[2017-05-14 20:00] VITALS: BP 170/97; PULSE 64; RESP 20; TEMP 97.9; O2SAT 96
[2017-05-15] VITALS: BP 152/91; PULSE 69; RESP 18; TEMP 98; O2SAT 94
[2017-05-15] MEDS: PIPERACIL-TAZO 3.375 GM PREMIX 50 ML IV SCH ×4 (02:49→22:17)
[2017-05-15] MEDS: SODIUM CHLORIDE 0.9% FLUSH 10 ML FLUSH IV FLUSH SCH ×3 (02:49→22:16)
[2017-05-15] MEDS: ACETAMINOPHEN/HYDROcodone 325 MG/10 MG TAB PO PRN ×5 (02:49→23:20)
[2017-05-15 08:00] VITALS: BP 153/99; PULSE 59; RESP 17; TEMP 98.2; O2SAT 98
[2017-05-15] MEDS: BRIMONIDINE TARTRATE 0.2% OPHT SOLN 5 ML BTL LEFT EYE SCH ×2 (09:00→22:17)
[2017-05-15] MEDS: POLYETHYLENE GLYCOL 17 GM PKG PO SCH (09:00)
[2017-05-15] MEDS: DOCUSATE SODIUM 50 MG/SENNA 8.6 MG TAB PO SCH ×2 (09:00→21:00)
[2017-05-15] MEDS: predniSONE 50 MG TAB PO SCH (09:00)
[2017-05-15] MEDS: TIMOLOL MALEATE 0.5% OPHT SOLN 5 ML BTL LEFT EYE SCH ×2 (09:00→22:17)
[2017-05-15] MEDS: LIDOCAINE HCL 5% PATCH T-DERMAL SCH (09:00)
[2017-05-15] MEDS: VANCOMYCIN 1,500 MG/NS 500 ML IV SCH ×4 (10:00→22:16)
[2017-05-15 12:00] VITALS: BP 138/90; PULSE 83; RESP 17; TEMP 98.4; O2SAT 97
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
--- NOTE | 2017-05-15 15:52 | HHI.PR ---
Subjective Remarks Patient feels the pain is improving. Vision still the same in OS. Objective Vital Signs Date Time Temp Pulse Resp B/P (MAP) Pulse Ox O2 Delivery O2 Flow Rate FiO2 05/15/17 12:00 98.4 83 17 138/90 (106) 97 05/15/17 08:00 98.2 59 17 153/99 (117) 98 05/15/17 00:00 98.0 69 18 152/91 (111) 94 05/14/17 20:00 97.9 64 20 170/97 (121) 96 05/14/17 16:00 98.4 79 18 155/84 (107) 95 I/O 05/14/17 05/14/17 05/14/17 05/15/17 05/15/17 05/15/17 07:00 15:00 23:00 07:00 15:00 23:00 Intake Total 880 ml 100 ml 1250 ml 1235 ml 0 ml Balance 880 ml 100 ml 1250 ml 1235 ml 0 ml Intake Oral 780 ml 1200 ml 720 ml IV Total 100 ml 100 ml 50 ml 515 ml 0 ml # Voids 5 4 5 # Bowel Movements 3 1 Result Diagram: 05/14/1772605/14/17726 Objective Remarks Va sc at near OD 20/20, OS LP EOM full OD, limited OS CVF full OD, unable OS Pupils 2-1 OD, 3mm OS IOP unable Anterior exam OD - normal eyelid, C/S W&Q, K clear, AC deep, pupil round, lens clear OS - ptosis and proptosis, conj laceration inferiorly, K clear, AC deep, pupil round, lens clear Assessment and Plan Problem List: (1) Preseptal cellulitis of left eye ICD Codes: L03.213 - Periorbital cellulitis Status: Acute Plan: Cont Zosyn q6h, Vanc q12h, prednisone 100mg daily, timolol BID OS, brimonidine BID OS. (2) Laceration of left conjunctiva ICD Codes: S05.32XA - Ocular laceration without prolapse or loss of intraocular tissue, left eye, initial encounter Plan: Repair scheduled for Tuesday at noon. NPO Tuesday after midnight. Patient will be ok to be discharged after procedure on Tue. (3) Optic nerve trauma of left eye ICD Codes: S04.012A - Injury of optic nerve, left eye, initial encounter Status: Acute Plan: Will need a dilated exam while under anesthesia in OR. Problem Qualifiers (1) Laceration of left conjunctiva: Qualified Codes: S05.32XD - Ocular laceration without prolapse or loss of intraocular tissue, left eye, subsequent encounter (2) Optic nerve trauma of left eye: Qualified Codes: S04.012D - Injury of optic nerve, left eye, subsequent encounter Leonela Branch MD May 15, 2017 15:52
[2017-05-15 16:00] VITALS: BP 157/93; PULSE 75; RESP 17; TEMP 98.4; O2SAT 98
[2017-05-15 20:00] VITALS: BP 149/95; PULSE 76; RESP 20; TEMP 97.3; O2SAT 95
[2017-05-16] VITALS: BP 148/94; PULSE 74; RESP 18; TEMP 97.7; O2SAT 95
[2017-05-16] MEDS: PIPERACIL-TAZO 3.375 GM PREMIX 50 ML IV SCH ×4 (03:13→23:15)
[2017-05-16] MEDS: ACETAMINOPHEN/HYDROcodone 325 MG/10 MG TAB PO PRN ×5 (03:14→20:16)
[2017-05-16 07:54] VITALS: BP 155/100; PULSE 75; RESP 18; TEMP 97.8; O2SAT 97
[2017-05-16] MEDS: TIMOLOL MALEATE 0.5% OPHT SOLN 5 ML BTL LEFT EYE SCH ×2 (08:24→20:17)
[2017-05-16] MEDS: BRIMONIDINE TARTRATE 0.2% OPHT SOLN 5 ML BTL LEFT EYE SCH ×2 (08:24→20:17)
[2017-05-16] MEDS: predniSONE 50 MG TAB PO SCH (08:25)
[2017-05-16] MEDS: POLYETHYLENE GLYCOL 17 GM PKG PO SCH (08:26)
[2017-05-16] MEDS: DOCUSATE SODIUM 50 MG/SENNA 8.6 MG TAB PO SCH ×2 (08:26→20:17)
[2017-05-16] MEDS: SODIUM CHLORIDE 0.9% FLUSH 10 ML FLUSH IV FLUSH SCH ×2 (08:27→20:16)
[2017-05-16] MEDS: LIDOCAINE HCL 5% PATCH T-DERMAL SCH (08:43)
[2017-05-16] MEDS: VANCOMYCIN 1,500 MG/NS 500 ML IV SCH ×4 (10:09→20:15)
[2017-05-16 12:00] VITALS: BP 138/87; PULSE 81; RESP 18; TEMP 97.6; O2SAT 95
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
[2017-05-16 15:59] VITALS: BP 145/91; PULSE 71; RESP 16; TEMP 98; O2SAT 95
[2017-05-16 20:00] VITALS: BP 161/91; PULSE 61; RESP 16; TEMP 98.7; O2SAT 98
[2017-05-17] VITALS: BP 159/67; PULSE 62; RESP 16; TEMP 98.6; O2SAT 99
[2017-05-17] MEDS: ACETAMINOPHEN/HYDROcodone 325 MG/10 MG TAB PO PRN ×6 (00:27→22:05)
[2017-05-17] MEDS: PIPERACIL-TAZO 3.375 GM PREMIX 50 ML IV SCH ×3 (04:30→16:29)
[2017-05-17 07:45] LABS: CREATININE 0.93 MG/DL (0.60-1.30)
[2017-05-17 08:00] VITALS: BP 162/98; PULSE 61; RESP 18; TEMP 98.1; O2SAT 99
[2017-05-17] MEDS: predniSONE 50 MG TAB PO SCH (08:36)
[2017-05-17] MEDS: POLYETHYLENE GLYCOL 17 GM PKG PO SCH (08:37)
[2017-05-17] MEDS: SODIUM CHLORIDE 0.9% FLUSH 10 ML FLUSH IV FLUSH SCH ×2 (08:37→22:04)
[2017-05-17] MEDS: LIDOCAINE HCL 5% PATCH T-DERMAL SCH (08:37)
[2017-05-17] MEDS: DOCUSATE SODIUM 50 MG/SENNA 8.6 MG TAB PO SCH ×2 (08:37→21:00)
[2017-05-17] MEDS: BRIMONIDINE TARTRATE 0.2% OPHT SOLN 5 ML BTL LEFT EYE SCH ×2 (08:40→22:03)
[2017-05-17] MEDS: TIMOLOL MALEATE 0.5% OPHT SOLN 5 ML BTL LEFT EYE SCH ×2 (08:40→22:03)
[2017-05-17] MEDS ORDERED: PHARMACY ORDERED LAB ONE (09:45)
[2017-05-17] MEDS: VANCOMYCIN 1,500 MG/NS 500 ML IV SCH ×4 (10:13→22:04)
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
[2017-05-17 12:00] VITALS: BP 138/77; PULSE 92; RESP 17; TEMP 97.1; O2SAT 96
[2017-05-17 16:00] VITALS: BP 159/75; PULSE 63; RESP 18; TEMP 97.9; O2SAT 100
--- NOTE | 2017-05-17 17:18 | RADRPT ---
EXAM DATE/TIME: 05/17/2017 16:54 [facility] COMPARISON: No previous studies available for comparison. INDICATIONS : Patient complains of low back pain. RADIATION DOSE: 22.21 CTDIvol (mGy) MEDICAL HISTORY : head trauma, migranes SURGICAL HISTORY : Non-responsive. ENCOUNTER: Initial ACUITY: 1 day PAIN SCALE: 5/10 LOCATION: low back TECHNIQUE: Volumetric scanning of the lumbar spine was performed. Multiplanar reconstructions in the sagittal, coronal and oblique axial planes were performed. Using automated exposure control and adjustment of the mA and/or kV according to patient size, radiation dose was kept as low as reasonably achievable t o obtain optimal diagnostic quality images. DICOM format image data is available electronically for review and comparison. FINDINGS: VERTEBRAE: Normal vertebral body height. ALIGNMENT: No evidence of subluxation. T12-L1: The thecal sac has a normal diameter. No evidence of disc bulge or protrusion. The neural foramina are patent bilaterally. Moderate bony hypertrophy of the facets. L1-L2: The thecal sac has a normal diameter. No evidence of disc bulge or protrusion. The neural foramina are patent bilaterally. Moderate bony hypertrophy of the facets. L2-L3: There is a mild broad-based disc bulge. Mild ligamentum flavum hypertrophy and bony hypertrophy of th e facets. There is some lipomatous change the central canal posteriorly. This combination narrows the intrathecal space which measures 6 mm in anterior to posterior dimension within the midline. There i s narrowing of the neural foramina bilaterally with potential impingement. L3-L4: There is a mild broad-based disc bulge. Mild ligamentum flavum hypertrophy and bony hypertrophy of th e facets. There is some lipomatous change the central canal posteriorly. This combination narrows the intrathecal space which measures 6 mm in anterior to posterior dimension within the midline. There i s narrowing of the neural foramina bilaterally with potential impingement. L4-L5: There is a broad-based disc bulge in combination with moderate bony hypertrophy of the facets and lip omatous change generat narrowing of the intrathecal space that measures 4 mm in anterior to posterior dimension within the midline. Neural foramina remain patent. L5-S1: A left posterior lateral disc protrusion effaces the left lateral recess and impinges the left S1 ner ve root. It also causes narrowing of the left neural foramen without overt impingement. Right neural foramen is patent. The lipomatous changes seen involving the central canal. Mild bony hypertrophy of the facets. CONCLUSION: 1. Multilevel degenerative changes as detailed at each level in the above discussion. Special note is made of a left posterior lateral disc protrusion that abuts the left S1 nerve root and is a potentia l source for left S1 radiculopathy. Simone Molina Jr., MD on May 17, 2017 at 17:10 Board Certified Radiologist. This report was verified electronically.
[2017-05-17 20:00] VITALS: BP 147/89; PULSE 79; RESP 15; TEMP 97.1; O2SAT 97
[2017-05-18] VITALS: BP 166/97; PULSE 83; RESP 15; TEMP 98.2; O2SAT 98
[2017-05-18] MEDS: PIPERACIL-TAZO 3.375 GM PREMIX 50 ML IV SCH ×5 (00:31→22:26)
[2017-05-18] MEDS: ACETAMINOPHEN/HYDROcodone 325 MG/10 MG TAB PO PRN ×4 (03:48→20:18)
[2017-05-18 08:00] VITALS: BP 159/92; PULSE 70; RESP 17; TEMP 96.7; O2SAT 96
[2017-05-18] MEDS: predniSONE 50 MG TAB PO SCH (08:15)
[2017-05-18] MEDS: DOCUSATE SODIUM 50 MG/SENNA 8.6 MG TAB PO SCH ×2 (08:16→21:00)
[2017-05-18] MEDS: POLYETHYLENE GLYCOL 17 GM PKG PO SCH (08:16)
[2017-05-18] MEDS: SODIUM CHLORIDE 0.9% FLUSH 10 ML FLUSH IV FLUSH SCH ×2 (08:17→21:30)
[2017-05-18] MEDS: TIMOLOL MALEATE 0.5% OPHT SOLN 5 ML BTL LEFT EYE SCH (08:17)
[2017-05-18] MEDS: LIDOCAINE HCL 5% PATCH T-DERMAL SCH (08:17)
[2017-05-18] MEDS: BRIMONIDINE TARTRATE 0.2% OPHT SOLN 5 ML BTL LEFT EYE SCH (08:17)
[2017-05-18] MEDS: VANCOMYCIN 1,500 MG/NS 500 ML IV SCH ×4 (09:41→22:26)
[2017-05-18] MEDS ORDERED: BALANCED SALT SOLN OPHT IRRIG 15 ML BTL ONE (10:32)
[2017-05-18] MEDS ORDERED: NEOMYCIN/POLYMYXIN/DEXAMETHASONE OPTH OINT 3.5 GM TUBE ONE (10:33)
[2017-05-18 12:00] VITALS: BP 165/97; PULSE 55; RESP 17; TEMP 97.3; O2SAT 98
[2017-05-18] MEDS ORDERED: ONDANSETRON HCL 4 MG/2 ML VIAL IV ONE (12:00)
[2017-05-18] MEDS ORDERED: PROPOFOL 200 MG/20 ML AMP IV ONE (12:00)
[2017-05-18] MEDS ORDERED: DEXAMETHASONE SOD PHOS 4 MG/ML VIAL IV ONE (12:00)
[2017-05-18] MEDS ORDERED: LIDOCAINE HCL 1% PF 5 ML SYRINGE OTHER ONE (12:00)
[2017-05-18] MEDS ORDERED: DEXAMETHASONE SOD PHOS 4 MG/ML VIAL ONE (12:54)
[2017-05-18] MEDS ORDERED: ceFAZolin INJ 1,000 MG VIAL ONE (12:54)
[2017-05-18] MEDS ORDERED: SODIUM CHLORIDE 0.9% 20 ML VIAL ONE (12:54)
[2017-05-18] MEDS ORDERED: TOBRAMYCIN/DEXAMETHASONE OPTH OINT 3.5 GM TUBE ONE (14:12)
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
[2017-05-18] MEDS ORDERED: DO NOT ADM ANY ANTICOAGULANT DRUGS PRN (14:48)
[2017-05-18] MEDS ORDERED: *morphine SULFATE 8 MG/ML PERIprocedure ONLY ONE ×2 (14:48→15:08)
--- NOTE | 2017-05-18 14:59 | PD.OP ---
Operative Report Date of Surgery: May 18, 2017 Preoperative Diagnosis: (1) Laceration of left conjunctiva Postoperative Diagnosis: torn left inferior rectus muscle, torn left inferior oblique muscle, herniation of orbital fat left eye, diffuse retinal hemorrhages left eye Procedure: exam under anesthesia, removal of herniation of left orbital fat Anesthesia: General Surgeon: Leonela Branch Bakery Supervisor(s): none Operation and Findings: The patient was consented for surgery and taken back to the operating room. He was put under general anesthesia and prepped and draped in a sterile fashion. 1 % Tropicamide and 2.5% Phenylephrine eyedrops were placed in the left eye. A lid speculum was placed in the left eye. A large protrusion was found on the inferior portion of the globe. A 360 degree conjunctival peritomy was performed and the protrusion was found to be a torn inferior rectus and inferior oblique muscle. The other end of the muscles were attempted to be found but they had retracted too far back. The conjunctiva was closed with 7-0 Vicryl. Subconjunctival Decadron and Ancef was injected in the left eye. A 15 blade was used to incise the lateral aspect of the left upper eyelid. Herniated orbital fat was found and removed. The incision was closed with 5-0 Prolene. A dilated exam was performed on the left eye and diffuse retinal hemorrhages were seen. Tobradex ointment and a patch and shield were placed over the left eye. The patient was sent to PACU in stable condition. Leonela Branch MD May 18, 2017 14:59
--- NOTE | 2017-05-18 15:09 | HHI.PR ---
Subjective Remarks s/p exam under anesthesia. Currently in PACU with shield over left eye. Objective Vital Signs Date Time Temp Pulse Resp B/P (MAP) Pulse Ox O2 Delivery O2 Flow Rate FiO2 05/18/17 12:00 97.3 55 17 165/97 (119) 98 05/18/17 08:00 96.7 70 17 159/92 (114) 96 05/18/17 00:00 98.2 83 15 166/97 (120) 98 05/17/17 20:00 97.1 79 15 147/89 (108) 97 05/17/17 16:00 97.9 63 18 159/75 (103) 100 I/O 05/17/17 05/17/17 05/17/17 05/18/17 05/18/17 05/18/17 07:00 15:00 23:00 07:00 15:00 23:00 Intake Total 855 ml 1010 ml 615 ml Balance 855 ml 1010 ml 615 ml Intake Oral 240 ml 960 ml 0 ml IV Total 615 ml 50 ml 615 ml # Voids 3 6 3 # Bowel Movements 1 8 0 Result Diagram: 05/14/17 0727 05/17/17 0535 Objective Remarks Shield over left eye Assessment and Plan Problem List: (1) Preseptal cellulitis of left eye ICD Codes: L03.213 - Periorbital cellulitis Status: Acute Plan: Cont Zosyn q6h, Vanc q12h, prednisone 50 mg daily. Hold on eyedrops for now. (2) Retinal hemorrhage noted on examination of left eye ICD Codes: H35.62 - Retinal hemorrhage, left eye Plan: s/p exam under anesthesia. Patient found to have torn inferior rectus, torn inferior oblique, herniated orbital fat, and diffuse retinal heme on dilated exam. Ok to be discharged. Patient to keep eye shield on left eye and to follow up at the office tomorrow 05/19 at 1pm ([address] [facility]. ). Discharge on Augmentin 875mg BID x 10 days, Percocet PRN, Prednisone 50mg daily. Leonela Branch MD May 18, 2017 15:09
[2017-05-18 16:30] VITALS: BP 133/67; PULSE 88; RESP 17; TEMP 98.5; O2SAT 91
[2017-05-18 20:00] VITALS: BP 142/85; PULSE 90; RESP 22; TEMP 98.3; O2SAT 95
[2017-05-19] VITALS: BP 152/86; PULSE 78; RESP 20; TEMP 96.4; O2SAT 99
[2017-05-19] MEDS: ACETAMINOPHEN/HYDROcodone 325 MG/10 MG TAB PO PRN ×3 (00:15→09:19)
[2017-05-19] MEDS: PIPERACIL-TAZO 3.375 GM PREMIX 50 ML IV SCH ×2 (04:21→09:21)
[2017-05-19 07:15] LABS: CREATININE 1.05 MG/DL (0.60-1.30)
[2017-05-19 08:00] VITALS: BP 176/92; PULSE 65; RESP 20; TEMP 97.2; O2SAT 99
[2017-05-19 09:00] VITALS: O2SAT 97
[2017-05-19] MEDS: POLYETHYLENE GLYCOL 17 GM PKG PO SCH (09:00)
[2017-05-19] MEDS ORDERED: predniSONE 50 MG TAB PO SCH (09:00)
[2017-05-19] MEDS: DOCUSATE SODIUM 50 MG/SENNA 8.6 MG TAB PO SCH (09:20)
[2017-05-19] MEDS: SODIUM CHLORIDE 0.9% FLUSH 10 ML FLUSH IV FLUSH SCH (09:20)
[2017-05-19] MEDS: LIDOCAINE HCL 5% PATCH T-DERMAL SCH (09:21)
[2017-05-19] MEDS: VANCOMYCIN 1,500 MG/NS 500 ML IV SCH ×2 (10:13)
[2017-05-19] MEDS ORDERED: MEDR4PAK PO (10:25)
[2017-05-19] MEDS ORDERED: AUGM875T3 PO (10:25)
[2017-05-19] MEDS ORDERED: PRED50 PO (10:25)
--- NOTE | 2017-05-19 10:28 | HHI.DS ---
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 He reports that his eye has been painful with a white discharge since the day of his trauma. He states that he does not have any vision or light perception in his left eye. The patient denies any fever/ chills. Denies chest pain, shortness of breath and cough. Has no other complaints at this time. CBC/BMP: 05/19/17 0610 Significant Findings Laboratory Tests Test 05/17/17 05:35 05/17/17 08:50 05/19/17 06:10 Vancomycin Level Trough 13.6 MCG/ML (5.0-10.0) PE at Discharge GENERAL: Well-nourished, well-developed patient. HEENT: swollen left eyelid and globe with moderate swelling in periorbital space. HEAD: Normocephalic. EYES: No scleral icterus. No injection or drainage. NECK: Supple, trachea midline. No JVD or lymphadenopathy. CARDIOVASCULAR: Regular rate and rhythm without murmurs, gallops, or rubs. RESPIRATORY: Breath sounds equal bilaterally, scattered wheezing. No accessory muscle use. GASTROINTESTINAL: Abdomen soft, non-tender, nondistended. EXTREMITIES: No cyanosis, or edema. NEUROLOGICAL: Awake, alert, and oriented x 3. Non-focal. Hospital Course 56M who suffered a traumatic injury of left globe when he fell onto stairs a couple weeks ago. The eye subsequently became infected and he presented to the ER for IV antibiotics. He had marked swelling, orbital cellulitis, and required nearly a week of IV antibiotics and steroids before he was ready for surgery. Surgical debridement and laceration repair was performed yesterday, he has done well post op, and has an outpatient follow up with ophthalmology scheduled for later today. He is ready for discharge. Pt Condition on Discharge: Fair Discharge Disposition: Discharge Home Discharge Time: <= 30 minutes Discharge Instructions DIET: Follow Instructions for: As Tolerated, No Restrictions Activities you can perform: Regular-No Restrictions Julio Motley MD May 19, 2017 10:28
[2017-05-19] MEDS ORDERED: OXYC1TAB63 PO (10:52)
[2017-05-19] MEDS ORDERED: CIPR0.3S2 LEFT EYE (16:00)
[2017-05-19] MEDS ORDERED: DIFL0.0512 LEFT EYE (16:00)
== END 2017-05-19 12:52 | disposition home or self-care (01) | DRG 113 ==
LOC: NEPC 18:00 → NEDA 21:07 → OBSVTOIN 21:37 → NEPHCDU 22:05 → N07A 05-11 17:14
PROVIDERS: ADMIT Family Medicine; ATTEND Family Medicine
PROC: 08B Eye, Excision (ICD-10-PCS; 2017-05-18)
PROC: 08Q1XZZ Repair Left Eye, External Approach (ICD-10-PCS; principal; 2017-05-18 12:31)
DX: S05.22XA Ocular laceration and rupture with prolapse or loss of intraocular tissue, left eye, initial encounter (principal); S04.012A Injury of optic nerve, left eye, initial encounter; L03.213 Periorbital cellulitis; H05.20 Unspecified exophthalmos; H35.62 Retinal hemorrhage, left eye; W10.9XXA Fall (on) (from) unspecified stairs and steps, initial encounter; E78.00 Pure hypercholesterolemia, unspecified; F10.10 Alcohol abuse, uncomplicated; F31.9 Bipolar disorder, unspecified; M19.90 Unspecified osteoarthritis, unspecified site; H21.562 Pupillary abnormality, left eye; Z83.3 Family history of diabetes mellitus; Z82.49 Family history of ischemic heart disease and other diseases of the circulatory system; F17.290 Nicotine dependence, other tobacco product, uncomplicated; H54.7 Unspecified visual loss; M53.3 Sacrococcygeal disorders, not elsewhere classified
CPT/HCPCS: 70481; 72131; 80048; 80202; 82565; 85025; 85610; 85730; 87040; 93005; 99285; J0690; J1100; J2270; J2405; J2543; J3010; J3370; J7030; J7040; J7050; J7512; Q9967

== ENCOUNTER 2017-05-19 14:32 | Emergency (ER) | payer SELFPAY ==
[~2017-05-19] VITALS: Ht 175.3 cm; Wt 82.0 kg
[~2017-05-19 14:32] MED LIST changes: +AUGM875T3 PO; +LIDO1PAD52 TOPICAL; -MAGN30S PO; +MEDR4PAK PO; +MENT4GEL2 TOPICAL; -METH500T3 PO; +PRED50 PO
[2017-05-19 14:34] VITALS: BP 184/99; PULSE 89; RESP 16; TEMP 98.2; O2SAT 96
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
[2017-05-19] MEDS ORDERED: DIFL0.0512 LEFT EYE (16:00)
[2017-05-19] MEDS ORDERED: CIPR0.3S2 LEFT EYE (16:00)
== END 2017-05-19 17:06 | disposition home or self-care (01) ==
LOC: NEPC 14:32
DX: H35.62 Retinal hemorrhage, left eye (principal)
CPT/HCPCS: 99282

== ENCOUNTER 2017-05-25 02:03 | Emergency (ER) | payer SELFPAY ==
[~2017-05-25] VITALS: Ht 180.3 cm; Wt 88.0 kg
[~2017-05-25 02:03] MED LIST changes: +CIPR0.3S2 LEFT EYE; +DIFL0.0512 LEFT EYE; -DOCU1CAP39 PO; -LIDO1ADH4 T-DERMAL
[2017-05-25 02:24] VITALS: BP 179/117; PULSE 68; RESP 18; O2SAT 100
[2017-05-25 02:26] VITALS: BP 179/117; PULSE 74; RESP 24; O2SAT 100
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
[2017-05-25] MEDS ORDERED: ORPHENADRINE INJ 60 MG/2 ML AMP IM ONE (03:30)
[2017-05-25] MEDS ORDERED: ONDANSETRON HCL 4 MG/2 ML VIAL IV PUSH ONE (03:30)
[2017-05-25] MEDS ORDERED: HYDROmorphone HCL PF 1 MG/ML VIAL IV PUSH ONE (03:30)
[2017-05-25 04:07] LABS: AUTOMATED NEUTROPHIL # 4.4 TH/MM3 (1.8-7.7); BASOPHIL % 0.4 % (0.0-2.0); BILIRUBIN, URINE NEG (NEG); BLOOD, URINE NEG (NEG); EOSINOPHIL # 0.1 TH/MM3 (0-0.4); EOSINOPHIL % 0.9 % (0.0-4.0); GLUCOSE,URINE NEG (NEG); HEMATOCRIT 41.3 % (39.0-51.0); HEMOGLOBIN 13.7 GM/DL (13.0-17.0); KETONE, URINE NEG (NEG); LYMPH % 23.1 % (9.0-44.0); LYMPHOCYTE # 1.5 TH/MM3 (1.0-4.8); MEAN CELL VOLUME 85.5 FL (80.0-100.0); MEAN CORPUSCULAR HEMOGLOBIN 28.5 PG (27.0-34.0); MEAN CORPUSCULAR HGB CONC 33.3 % (32.0-36.0); MEAN PLATELET VOLUME 8.8 FL (7.0-11.0); MONO % 9.3 % (0.0-8.0); MONOCYTE # 0.6 TH/MM3 (0-0.9); NEUT % 66.3 % (16.0-70.0); NITRITE,URINE NEG (NEG); PH, URINE 8.5 (5.0-8.5); PLATELET COUNT 187 TH/MM3 (150-450); RED BLOOD COUNT 4.83 MIL/MM3 (4.50-5.90); RED CELL DISTRIBUTION WIDTH 15.7 % (11.6-17.2); URINE COLOR LIGHT-YELLOW (YELLW/STRAW); URINE LEUKOCYTE ESTERASE NEG (NEG); WHITE BLOOD COUNT 6.6 TH/MM3 (4.0-11.0)
[2017-05-25] MEDS ORDERED: HYDROmorphone HCL PF 2 MG/ML VIAL IV PUSH ONE (04:15)
[2017-05-25 04:18] LABS: INTERNATIONAL NORMALIZED RATIO 0.9 RATIO; PROTHROMBIN TIME - PATIENT 9.5 SEC (9.8-11.6)
[2017-05-25 04:40] LABS: BICARBONATE 24.5 MEQ/L (21.0-32.0); CALCIUM 9.1 MG/DL (8.5-10.1); CREATININE 0.99 MG/DL (0.60-1.30); MAGNESIUM 2.1 MG/DL (1.5-2.5)
[2017-05-25] MEDS ORDERED: MEDR4PAK PO (04:52)
[2017-05-25] MEDS ORDERED: methylPREDNISolone SOD SUCC 125 MG/2 ML VIAL IV PUSH ONE (05:00)
== END 2017-05-25 06:16 | disposition home or self-care (01) ==
LOC: NEPC 02:03
DX: M54.16 Radiculopathy, lumbar region (principal); M62.838 Other muscle spasm; F10.10 Alcohol abuse, uncomplicated; R07.9 Chest pain, unspecified
CPT/HCPCS: 80048; 81001; 83735; 85025; 85610; 85730; 96372; 96374; 96375; 99284; J1170; J2360; J2405; J2930

== ENCOUNTER 2017-06-22 13:03 | Emergency (ER) | payer SELFPAY ==
[~2017-06-22 13:03] MED LIST changes: -IBUP-232 PO; -LIDO1PAD52 TOPICAL; -MENT4GEL2 TOPICAL; -PRED50 PO
[2017-06-22 14:05] VITALS: BP 168/101; PULSE 106; RESP 18; TEMP 99.2; O2SAT 100
[2017-06-22] MEDS ORDERED: oxyCODONE/ACETAMINOPHEN 7.5 MG/325 MG TAB PO ONE (16:15)
[2017-06-22] MEDS ORDERED: HYDR-3288 PO (16:25)
--- NOTE | 2017-06-22 16:39 | PD ---
HPI Chief Complaint: Musculoskeletal Complaint Time Seen by Provider: 15:23 Travel History International Travel<30 days: No Contact w/Intl Traveler<30days: No Traveled to known affect area: No History of Present Illness HPI 56 YO M with PMH of chronic back pain presents to the ED for evaluation of same. Patient states that the pain is rated 10/10, radiates down the left leg. He states this is his chronic pain, no changes today. States that he's been out of pain medications for approximately one week. He denies new injury to the area. He denies saddle anesthesia or incontinence. He states that he lost his insurance and does not have a physician to provide her medications anymore. PFSH Past Medical History Arthritis: Yes Asthma: No Autoimmune Disease: No Bipolar Disorder: Yes Anxiety: Yes Depression: Yes Heart Rhythm Problems: No Cancer: No Cardiac Catheterization: No Cardiovascular Problems: No High Cholesterol: No Chemotherapy: No Chest Pain: Yes (due to fall 2017 md aware of chest pain - no new orders) Congestive Heart Failure: No COPD: No Cerebrovascular Accident: No Diabetes: No Diminished Hearing: No Endocrine: No Gastrointestinal Disorders: No GERD: Yes Genitourinary: Yes (kidney stones years ago 10-15 years) Hepatitis: No Hiatal Hernia: Yes Heparin Induced Thrombocytopen: No Hypertension: No Immune Disorder: No Inguinal Hernia: Yes Implanted Vascular Access Dvce: Yes Kidney Stones: Yes Musculoskeletal: Yes (BACK PAIN HX and left shoulder pain) Neurologic: Yes (migraines 2018- head trauma) Psychiatric: Yes (BIPOLAR SChizopyhrenia- denies schizopyhrenia) Reproductive: No Respiratory: No Immunizations Current: Yes Migraines: Yes Radiation Therapy: No Renal Failure: No Seizures: No Sickle Cell Disease: No Sleep Apnea: No Thyroid Disease: No Ulcer: No Past Surgical History Abdominal Surgery: Yes (Hernia repairx 2) AICD: No Arteriovenous Shunt: No Body Medical Devices: "plate in L wrist" Cardiac Surgery: No Coronary Artery Bypass Graft: No Ear Surgery: No Endocrine Surgery: No Eye Surgery: Yes (EYE SURGERY 05/18/17) Genitourinary Surgery: No Gynecologic Surgery: No Insulin Pump: No Joint Replacement: No Neurologic Surgery: No Oral Surgery: No Pacemaker: No Thoracic Surgery: No Other Surgery: Yes (HERNIA x 2 naval and groin same time 07-19/ hand sx / knee sx) Social History Alcohol Use: No Tobacco Use: No Substance Use: Yes (COCAINE) Allergies-Medications (Allergen,Severity, Reaction): Coded Allergies: No Known Allergies (Verified Adverse Reaction, Unknown, 05/19/17) Reported Meds & Prescriptions Reported Meds & Active Scripts Active [place] (Hydrocodone-Acetaminophen) 7.5-325 mg Tab 1 Tab PO Q6H PRN Medrol Dosepak (Methylprednisolone) 4 Mg Dspk 4 Mg PO DIRECTED Per Pharmacist direction Oxycodone-Acetaminophen 5-325 (Oxycodone HCl/Acetaminophen) 5 Mg-325 Mg Tablet 1 Tab PO Q6H PRN 28 Days Augmentin (Amoxicillin-Clavulanate) 875-125 Mg Tab 1 Tab PO BID 7 Days Reported Durezol Opth (Difluprednate Opth) 0.05% Emul 1 Drop LEFT EYE QID Ciprofloxacin Opth Drops (Ciprofloxacin HCl) 0.3% Soln 1 Drop LEFT EYE QID while awake x 5 days. Review of Systems Except as stated in HPI: all other systems reviewed are Neg Physical Exam Narrative GENERAL: Well-nourished, well-developed male in no acute distress. SKIN: Focused skin assessment warm/dry. HEAD: Normocephalic. EYES: No scleral icterus. No injection or drainage. Patch over the left eye. NECK: Supple, trachea midline. No JVD or lymphadenopathy. CARDIOVASCULAR: Regular rate and rhythm without murmurs, gallops, or rubs. RESPIRATORY: Breath sounds clear and equal bilaterally. No accessory muscle use. GASTROINTESTINAL: Abdomen soft, non-tender, nondistended. MUSCULOSKELETAL: No cyanosis, or edema. 5/5 strength in the bilateral lower extremities. Neurovascularly intact distally. BACK: Positive midline tenderness in the thoracic and lumbar areas. No obvious deformity. No CVA tenderness. Tender to palpation of the paraspinal musculature on the left. Straight leg raise positive on the left. Data Data Last Documented VS Vital Signs Date Time Temp Pulse Resp B/P (MAP) Pulse Ox O2 Delivery O2 Flow Rate FiO2 06/22/17 14:05 99.2 106 18 168/101 (123) 100 Orders Orders Oxycodone-Acetamin 7.5-325 Mg (Percocet (06/22/17 16:15) Ed Discharge Order (06/22/17 16:39) MDM Medical Decision Making Medical Screen Exam Complete: Yes Emergency Medical Condition: Yes Differential Diagnosis Acute on chronic back pain versus sciatica versus medication refill versus other Narrative Course 56 YO M with PMH of chronic back pain presents to the ED for evaluation of same. Patient states that the pain is rated 10/10, radiates down the left leg. He states this is his chronic pain, no changes today. He denies new injury to the area, saddle anesthesia or incontinence. He states that he lost his insurance and does not have a physician to provide her medications anymore. Vitals reviewed. On exam the patient has midline tenderness in the back and and left-sided paraspinal musculature. He has equal strength in the bilateral lower extremities and no focal neuro deficits. I suspect these here for pain medications. He was administered 1 dose of 7.5 mg and [place] and provided a prescription for 4 tablets. He was counseled that this will be the only time he can receive refill in the ED and referred to the [facility] to establish primary care for better pain management. He indicated understanding the instructions. He is agreeable a care plan. He is stable and discharged home. Diagnosis Primary Impression: Chronic back pain Qualified Codes: M54.42 - Lumbago with sciatica, left side; G89.29 - Other chronic pain Referrals: [facility] Additional Instructions: Return to normal, gentle activity as tolerated. Take medication as prescribed. Do not drive while taking pain medication. Follow-up with the [facility] for further evaluation. Other providers in the emergency room may not be willing to provide you with pain medication prescriptions. It would be best to establish care at the [facility]. Return to the ED for worsening symptoms or any urgent or emergent medical condition. Med/Other Pt SpecificInfo: Prescription(s) given Scripts Hydrocodone-Acetaminophen ([place]) 7.5-325 mg Tab 1 TAB PO Q6H Y for PAIN, #12 TAB 0 Refills Prov: Mira Purvis MD 06/22/17 Disposition: 01 DISCHARGE HOME Condition: Stable Nata Graves Jun 22, 2017 16:39
== END 2017-06-22 17:33 | disposition home or self-care (01) ==
LOC: NEPK 13:03
DX: G89.29 Other chronic pain (principal); M54.42 Lumbago with sciatica, left side; M19.90 Unspecified osteoarthritis, unspecified site; F31.9 Bipolar disorder, unspecified; F41.9 Anxiety disorder, unspecified; K21.9 Gastro-esophageal reflux disease without esophagitis; K44.9 Diaphragmatic hernia without obstruction or gangrene; F14.90 Cocaine use, unspecified, uncomplicated; Z87.442 Personal history of urinary calculi
CPT/HCPCS: 99283